=== PATIENT | male | born 1955 | race American Indian/Alaskan Native ===

== ENCOUNTER 2018-06-05 19:47 | Inpatient (IN) | payer MEDICARE, OTHER ==
[2018-06-05] MEDS ORDERED: ASPIRIN PO ONE (20:11)
[2018-06-05 20:29] LABS: Basophils # (Auto) 0.1 K/mm3 (0.0-0.1); Basophils % (Auto) 0.9 % (0.0-1.8); Eosinophils # (Auto) 0.1 K/mm3 (0.0-0.4); Eosinophils % (Auto) 1.1 % (0.0-4.3); Hemoglobin 15.6 gm/dl (11.8-15.2); Lymphocytes # (Auto) 1.8 K/mm3 (1.2-5.4); Lymphocytes % (Auto) 25.7 % (13.4-35.0); Mean Corpuscular HGB Conc 33 % (32-34); Mean Corpuscular Volume 94 fl (84-94); Monocytes # (Auto) 0.7 K/mm3 (0.0-0.8); Monocytes % (Auto) 9.8 % (0.0-7.3); Platelet Count 125 K/mm3 (140-440); Red Blood Count 5.03 M/mm3 (3.65-5.03); Red Cell Distribution Width 14.6 % (13.2-15.2)
[2018-06-05 21:01] LABS: Calcium 8.9 mg/dL (8.4-10.2)
[2018-06-05] MEDS ORDERED: NACL 0.9% 1000 ML 1,000 ML IV ONE ×2 (21:11→22:18)
[2018-06-05] MEDS ORDERED: NACL 0.9% 1000 ML 1,000 ML ONE (21:12)
--- NOTE | 2018-06-05 21:14 | Emergency Department Report ---
ED Chest Pain HPI - General Chief Complaint: Chest Pain Stated Complaint: CHEST PAIN Time Seen by Provider: 06/05/18 21:10 Source: patient Mode of arrival: Ambulatory Limitations: No Limitations - History of Present Illness Initial Comments: Patient is 63-year-old male that presents emergency room with complaints of chest pain and shortness of breath on and off for one week. Patient states that his chest pain shortness of breath or worsening. Patient states that he's had multiple PEs and is post liquids but has not been taking it for one year. Pat ient states that his chest pain and shortness of breath are better with rest and worse with exertion and laying flat. Patient states that his shortness of breath better with upright position. Patient states he is not on home O2. Patient states taking the rest of his medications except for his blood that her. She denies having a history of CHF. Denies abdominal pain. She states his pain is a 8 out of 10 And is substernal and nonradiating. MD Complaint: chest pain -: Sudden Onset: during rest Pain Location: substernal, left chest Pain Radiation: none Severity: severe Severity scale (0 -10): 8 Quality: sharp Consistency: constant Improves With: rest Worsens With: exertion, supine re: dyspnea. denies: nausea, vomting, diaphoresis, sense of impending doom Other Symptoms: denies: cough, fever, syncope, rash, acid taste in mouth, leg swelling, palpitations, burping Treatments Prior to Arrival: none Aspirin use within the Past 7 Days: (0) No - Related Data On Oral Contraceptives: No Home Medications Medication Instructions Recorded Confirmed Last Taken Allopurinol [Zyloprim] 300 mg PO BID 06/05/18 06/05/18 06/05/18 Aspirin [Adult Low Dose Aspirin EC] 81 mg PO DAILY 06/05/18 06/05/18 06/05/18 Brimonidine 0.15% [Alphagan P 1 drops OP Q8H 06/05/18 06/05/18 Unknown 0.15%] Dorzolamide HCl/Timolol Maleat 10 ml OP BID 06/05/18 06/05/18 06/05/18 [Dorzolamide-Timolol Eye Drops] Furosemide [Lasix TAB] 40 mg PO DAILY 06/05/18 06/05/18 06/05/18 Gabapentin [Neurontin] 300 mg PO BID 06/05/18 06/05/18 06/05/18 Ibuprofen [Ibu] 800 mg PO Q8H PRN 06/05/18 06/05/18 Unknown Latanoprost/Pf [Latanoprost 0.005% 7.5 ml OP QHS 06/05/18 06/05/18 06/04/18 Eye Drop] Lisinopril 40 mg PO DAILY 06/05/18 06/05/18 06/05/18 Rosuvastatin (Nf) [Crestor] 20 mg PO DAILY 06/05/18 06/05/18 06/05/18 Silver Sulfadiazine [Silvadene] 50 gm TP DAILY 06/05/18 06/05/18 06/05/18 amLODIPine [Norvasc] 10 mg PO DAILY 06/05/18 06/05/18 06/05/18 methOCARBAMOL [Robaxin TAB] 500 mg PO BID 06/05/18 06/05/18 06/05/18 Allergies Allergy/AdvReac Type Severity Reaction Status Date / Time No Known Allergies Allergy Verified 08/23/14 08:28 Heart Score - HEART Score History: Moderately suspicious EKG: Non-specific Age: 45-65 Risk factors: 1-2 risk factors Troponin: < normal limit HEART Score: 4 ED Review of Systems ROS: Stated complaint: CHEST PAIN Other details as noted in HPI Constitutional: denies: chills, fever Eyes: denies: eye pain, eye discharge, vision change ENT: denies: ear pain, throat pain Respiratory: shortness of breath, SOB with exertion. denies: cough, wheezing Cardiovascular: chest pain. denies: palpitations Endocrine: no symptoms reported Gastrointestinal: denies: abdominal pain, nausea, diarrhea Genitourinary: denies: urgency, dysuria Musculoskeletal: denies: back pain, joint swelling, arthralgia Skin: denies: rash, lesions Neurological: denies: headache, weakness, paresthesias Psychiatric: denies: anxiety, depression Hematological/Lymphatic: denies: easy bleeding, easy bruising ED Past Medical Hx - Past Medical History Previous Medical History?: Yes Hx Hypertension: Yes Hx Deep Vein Thrombosis: Yes (Lungs) Additional medical history: GOUT, - Surgical History Past Surgical History?: Yes Hx Appendectomy: Yes Additional Surgical History: [place] filter - Family History Family history: no significant - Social History Smoking Status: Never Smoker Substance Use Type: None - Medications Home Medications: Home Medications Medication Instructions Recorded Confirmed Last Taken Type Allopurinol [Zyloprim] 300 mg PO BID 06/05/18 06/05/18 06/05/18 History Aspirin [Adult Low Dose Aspirin EC] 81 mg PO DAILY 06/05/18 06/05/18 06/05/18 History Brimonidine 0.15% [Alphagan P 1 drops OP Q8H 06/05/18 06/05/18 Unknown History 0.15%] Dorzolamide HCl/Timolol Maleat 10 ml OP BID 06/05/18 06/05/18 06/05/18 History [Dorzolamide-Timolol Eye Drops] Furosemide [Lasix TAB] 40 mg PO DAILY 06/05/18 06/05/18 06/05/18 History Gabapentin [Neurontin] 300 mg PO BID 06/05/18 06/05/18 06/05/18 History Ibuprofen [Ibu] 800 mg PO Q8H PRN 06/05/18 06/05/18 Unknown History Latanoprost/Pf [Latanoprost 0.005% 7.5 ml OP QHS 06/05/18 06/05/18 06/04/18 History Eye Drop] Lisinopril 40 mg PO DAILY 06/05/18 06/05/18 06/05/18 History Rosuvastatin (Nf) [Crestor] 20 mg PO DAILY 06/05/18 06/05/18 06/05/18 History Silver Sulfadiazine [Silvadene] 50 gm TP DAILY 06/05/18 06/05/18 06/05/18 History amLODIPine [Norvasc] 10 mg PO DAILY 06/05/18 06/05/18 06/05/18 History methOCARBAMOL [Robaxin TAB] 500 mg PO BID 06/05/18 06/05/18 06/05/18 History ED Physical Exam - General Limitations: No Limitations General appearance: alert, in no apparent distress - Head Head exam: Present: atraumatic, normocephalic - Eye Eye exam: Present: normal appearance - ENT ENT exam: Present: mucous membranes moist - Neck Neck exam: Present: normal inspection - Respiratory Respiratory exam: Present: normal lung sounds bilaterally. Absent: respiratory distress - Cardiovascular Cardiovascular Exam: Present: regular rate, normal rhythm. Absent: systolic murmur, diastolic murmur, rubs, gallop - GI/Abdominal GI/Abdominal exam: Present: soft, normal bowel sounds - Rectal Rectal exam: Present: deferred - Extremities Exam Extremities exam: Present: normal inspection - Back Exam Back exam: Present: normal inspection - Neurological Exam Neurological exam: Present: alert, oriented X3 - Psychiatric Psychiatric exam: Present: normal affect, normal mood - Skin Skin exam: Present: warm, dry, intact, normal color. Absent: rash ED Course Vital Signs 06/05/18 06/05/18 06/05/18 20:03 20:11 21:00 Temperature 98.7 F Pulse Rate 100 H 94 H Respiratory 20 33 H Rate Blood Pressure 91/62 O2 Sat by Pulse 89 95 95 Oximetry 06/05/18 06/05/18 06/05/18 21:15 21:30 21:46 Temperature Pulse Rate 90 98 H 89 Respiratory 25 H 16 32 H Rate Blood Pressure 78/52 78/52 80/59 O2 Sat by Pulse 96 Oximetry 06/05/18 06/05/18 06/05/18 22:16 22:30 22:45 Temperature Pulse Rate 88 82 82 Respiratory 18 22 21 Rate Blood Pressure 80/59 105/72 101/71 O2 Sat by Pulse 93 96 97 Oximetry 06/05/18 06/05/18 06/05/18 23:00 23:15 23:30 Temperature Pulse Rate 80 85 82 Respiratory 23 21 20 Rate Blood Pressure 105/67 88/55 108/76 O2 Sat by Pulse 96 94 95 Oximetry 06/05/18 06/05/18 06/06/18 23:45 23:56 00:00 Temperature Pulse Rate 83 91 H 84 Respiratory 22 24 23 Rate Blood Pressure 114/78 114/78 110/72 O2 Sat by Pulse 94 94 95 Oximetry 06/06/18 06/06/18 06/06/18 00:30 00:33 01:00 Temperature Pulse Rate 86 83 Respiratory 15 27 H Rate Blood Pressure 116/78 111/78 O2 Sat by Pulse 93 96 95 Oximetry 06/06/18 06/06/18 06/06/18 01:30 02:00 02:30 Temperature Pulse Rate 81 82 78 Respiratory 22 21 20 Rate Blood Pressure 115/94 112/77 112/77 O2 Sat by Pulse 95 95 93 Oximetry - Reevaluation(s) Reevaluation #1: Discussed plan of care with patient. Discussed CTA and IV contrast patient. Patient agrees to have IV contrast. It is clinically necessary for patient to have a CTA. 06/05/18 21:40 \ Radiologist called with CTA results and patient has multiple PEs along with saddle embolus With right heart strain 06/05/18 22:40 Patient to be admitted to the hospitalist service. Patient agrees with plan of care. Patient will pressure improved. Patient states shortness of breath chest pain improved. Patient started on a heparin drip. Patient to be admitted into the ICU 06/05/18 23:00 - Consultations Consultation #1: Vascular paged 06/05/18 22:[address] Banda Patient to be admitted to ICU and to the hospitalist service. The patient are placed on heparin drip. Consultation #2: 06/05/18 23:00 Hospitalist to admit patient. Hospitalist consult. THERESA score - Theresa Score Age > 65: (0) No Aspirin use within the Past 7 Days: (0) No 3 or more CAD Risk Factors: (0) No 2 or more Angina events in past 24 hrs: (0) No Known CAD with more than 50% Stenosis: (0) No Elevated Cardiac Markers: (0) No ST Deviation Greater than 0.5mm: (0) No THERESA Score: 0 ED Medical Decision Making - Lab Data Result diagrams: 06/05/18 22:46 06/05/18 20:15 - EKG Data -: EKG Interpreted by Nh EKG shows normal: sinus rhythm, axis, intervals, QRS complexes, ST-T waves Rate: normal - Radiology Data Radiology results: report reviewed Multiple PEs and saddle embolus on CTA. Patient also has right-sided strain - Medical Decision Making She is 63-year-old male that presents emergency room with complaints of chest pain shortness of breath. Patient found to have a subtle embolism and multiple PEs. Patient has a long history of previous one year. Patient was also found to be hypotensive and given fluids. Patient's blood pressure improved with saline. Patient placed on heparin drip with a loading dose bolus. - Differential Diagnosis chest pain. sob. pe. acs Critical Care Time: Yes Critical care attestation.: If time is entered above; I have spent that time in minutes in the direct care of this critically ill patient, excluding procedure time. Critical Care Time: 80 minutes ED Disposition Clinical Impression: Multiple pulmonary emboli Dyspnea Qualifiers: Dyspnea type: shortness of breath Qualified Code(s): R06.02 - Shortness of breath; R06.00 - Dyspnea, unspecified; R06.01 - Orthopnea Chest pain Qualifiers: Chest pain type: unspecified Qualified Code(s): R07.9 - Chest pain, unspecified Hypotension Qualifiers: Hypotension type: unspecified hypotension type Qualified Code(s): I95.9 - Hypotension, unspecified Pulmonary embolism Qualifiers: Pulmonary embolism type: saddle Chronicity: acute Acute cor pulmonale presence: with acute cor pulmonale Qualified Code(s): I26.02 - Saddle embolus of pulmonary artery with acute cor pulmonale Disposition: 09 OP ADMIT IP TO THIS HOSP Is pt being admited?: Yes Does the pt Need Aspirin: No Condition: Critical Time of Disposition: 23:09
--- NOTE | 2018-06-05 21:54 | XRay Report ---
FINAL REPORT EXAM: XR CHEST ROUTINE 2V HISTORY: Shortness of breath TECHNIQUE: Two view chest PA and lateral PRIORS: None. FINDINGS: Cardiac and mediastinal contours are unremarkable. No focal pulmonary infiltrate is identified. No pleural fluid collection seen. Pulmonary vasculature is unremarkable. IMPRESSION: Negative two-view chest
--- NOTE | 2018-06-05 22:37 | Cat Scan Report ---
FINAL REPORT EXAM: CT ANGIO CHEST HISTORY: SOB, CP, HYPOTENSION, HX PE. USED 50 ML OMNI 350. TECHNIQUE: CT chest CT angiogram with intravenous contrast and multiplanar reconstructions. 3D max imum intensity projection reconstructions were obtained PRIORS: None. FINDINGS: Findings are positive for acute bilateral pulmonary emboli. There is saddle embolus within the pulmon helio trunk and left and right main pulmonary arteries with large emboli present within upper lower lob e and right middle lobe lobar segmental and subsegmental branches some of which are occluding. There is some reflux of contrast into inferior vena cava which may reflect right heart strain. There is focal increased density seen within the medial aspect of the left upper lobe which has a con solidated appearance measuring approximately 3.7 centimeters could reflect atelectasis versus mass or infiltrate and continued close interval follow-up recommended. No pleural fluid collection seen No acute abnormality identified in the visualized upper abdomen IMPRESSION: Findings are positive for acute bilateral pulmonary emboli. There is a saddle embolus and overall mariia t burden is large Findings suggestive of right heart strain Focal consolidated opacity within the left upper lobe. Underlying mass is not excluded and continued followup suggested.
[2018-06-05] MEDS ORDERED: HEPARIN 10,000 UNITS/10 ML IV ONE (22:41)
[2018-06-05 22:59] LABS: Hematocrit 42.6 % (35.5-45.6); Hemoglobin 13.9 gm/dl (11.8-15.2)
[2018-06-05 23:10] LABS: INR 1.25 (0.87-1.13)
[2018-06-05 23:11] LABS: Partial Thromboplastin Time 24.5 Sec. (24.2-36.6)
[2018-06-06] MEDS ORDERED: MORPHINE IV PRN ×2 (00:28→13:03)
[2018-06-06] MEDS ORDERED: ZOFRAN IV PRN ×2 (00:28→11:40)
[2018-06-06] MEDS ORDERED: TYLENOL PO PRN (00:28)
[2018-06-06] MEDS: HEPARIN/ 0.45% NACL-25,000 UNIT/500 ML 25,000 UNIT/500 ML BAG IV SCH ×3 (00:30→12:30)
[2018-06-06] MEDS ORDERED: RESTORIL PO PRN (00:31)
[2018-06-06] MEDS ORDERED: PROVENTIL IH PRN (00:32)
[2018-06-06 06:55] LABS: INR 1.22 (0.87-1.13)
[2018-06-06 07:02] LABS: Creatine Kinase MB 1.8 ng/mL (0.0-4.0)
[2018-06-06 08:26] LABS: Calcium 8.2 mg/dL (8.4-10.2)
--- NOTE | 2018-06-06 09:49 | Consultation ---
History of Present Illness - Reason for Consult Consult date: 06/06/18 saddle PE with right heart strain Requesting physician: CANDI LOBATO III - History of Present Illness Patient came to ED with one-week shortness of breath has been worsening and now with chest pain. He had a CTA that showed septal pulmonary embolus with bilateral main artery emboli. He had same issue back in 2015 when he underwent placement of thrombolytic catheter was for major PE and then placement of IVC filter. The filter was subsequently removed and patient was supposed to continue anticoagulation. He was followed with meal packer and in our office. He decided to stop until granulation by himself one year ago. Past History Past Medical History: DVT, hypertension, pulmonary embolism Medications and Allergies Allergies Allergy/AdvReac Type Severity Reaction Status Date / Time No Known Allergies Allergy Verified 08/23/14 08:28 Home Medications Medication Instructions Recorded Confirmed Last Taken Type Allopurinol [Zyloprim] 300 mg PO BID 06/05/18 06/05/18 06/05/18 History Aspirin [Adult Low Dose Aspirin EC] 81 mg PO DAILY 06/05/18 06/05/18 06/05/18 History Brimonidine 0.15% [Alphagan P 1 drops OP Q8H 06/05/18 06/05/18 Unknown History 0.15%] Dorzolamide HCl/Timolol Maleat 10 ml OP BID 06/05/18 06/05/18 06/05/18 History [Dorzolamide-Timolol Eye Drops] Furosemide [Lasix TAB] 40 mg PO DAILY 06/05/18 06/05/18 06/05/18 History Gabapentin [Neurontin] 300 mg PO BID 06/05/18 06/05/18 06/05/18 History Ibuprofen [Ibu] 800 mg PO Q8H PRN 06/05/18 06/05/18 Unknown History Latanoprost/Pf [Latanoprost 0.005% 7.5 ml OP QHS 06/05/18 06/05/18 06/04/18 History Eye Drop] Lisinopril 40 mg PO DAILY 06/05/18 06/05/18 06/05/18 History Rosuvastatin (Nf) [Crestor] 20 mg PO DAILY 06/05/18 06/05/18 06/05/18 History Silver Sulfadiazine [Silvadene] 50 gm TP DAILY 06/05/18 06/05/18 06/05/18 History amLODIPine [Norvasc] 10 mg PO DAILY 06/05/18 06/05/18 06/05/18 History methOCARBAMOL [Robaxin TAB] 500 mg PO BID 06/05/18 06/05/18 06/05/18 History Active Meds: Active Medications Acetaminophen (Tylenol) 650 mg PO Q4H PRN PRN Reason: Fever >101 Albuterol (Proventil) 2.5 mg IH Q6HRT PRN PRN Reason: Shortness Of Breath Allopurinol (Zyloprim) 300 mg PO BID MAX Amlodipine Besylate (Norvasc) 10 mg PO DAILY MAX Atorvastatin Calcium (Lipitor) 40 mg PO QHS MAX Gabapentin (Neurontin) 300 mg PO BID MAX Guaifenesin (Robitussin) 200 mg PO Q4H PRN PRN Reason: Cough Heparin Sodium/Sodium Chloride (Heparin/ 0.45% Nacl-25,000 Unit/500 Ml) 25,000 unit in 500 mls @ 30 mls/hr IV TITR MAX; Protocol Last Titration: 06/06/18 07:27 Dose: 0 units/hr, 0 mls/hr Documented by: Alteplase, Recombinant 10 mg/ (Sodium Chloride) 250 mls @ 10 mls/hr EKOSDLUMEN DIRECT MAX Alteplase, Recombinant 10 mg/ (Sodium Chloride) 250 mls @ 10 mls/hr IV DIRECT MAX Sodium Chloride (Nacl 0.9% 1000 Ml) 1,000 mls @ 30 mls/hr IV DIRECT MAX Sodium Chloride (Nacl 0.9% 1000 Ml) 1,000 mls @ 30 mls/hr SHEATH DIRECT MAX Sodium Chloride (Nacl 0.9% 1000 Ml) 1,000 mls @ 35 mls/hr EKOSCLUMEN DIRECT MAX Latanoprost (Latanoprost 0.005%) 1 drops OU QHS [facility] Lisinopril (Zestril) 40 mg PO DAILY [facility] Methocarbamol (Robaxin) 500 mg PO BID [facility] Miscellaneous Medication (Dorzolamide Hcl/Timolol Maleat [Dorzolamide-Timolol Eye Drops]) 10 ml OP BID [facility] Morphine Sulfate (Morphine) 2 mg IV Q3H PRN PRN Reason: Pain, Moderate (4-6) Ondansetron HCl (Zofran) 4 mg IV Q8H PRN PRN Reason: Nausea And Vomiting Silver Sulfadiazine (Thermazene 50 Gram) 1 applic TP DAILY [facility] Temazepam (Restoril) 15 mg PO QHS PRN PRN Reason: Insomnia Warfarin Sodium (Coumadin) 10 mg PO DAILY@1700 MAX Review of Systems All systems: negative (mentioned in HPI) Exam - Constitutional Vitals: Temp Pulse Resp BP Pulse Ox 98.7 F 85 13 137/99 96 06/05/18 20:03 06/06/18 09:00 06/06/18 09:00 06/06/18 09:00 06/06/18 09:00 General appearance: Present: no acute distress - Cardiovascular Heart Sounds: Present: S1 & S2 - Extremities Extremities: no ischemia Results - Labs CBC & Chem 7: 06/05/18 22:46 06/06/18 06:20 Labs: Abnormal lab results 06/05/18 06/05/18 06/05/18 Range/Units 20:15 20:15 21:14 Hgb 15.6 H (11.8-15.2) gm/dl Hct 47.0 H (35.5-45.6) % Plt Count 125 L (140-440) K/mm3 Dent % (Auto) 9.8 H (0.0-7.3) % PT (12.2-14.9) Sec. INR (0.87-1.13) D-Dimer 4730.92 H (0-234) ng/mlDDU Heparin Anti-Xa Level (0.3-0.7) U.I./ml Chloride (98-107) mmol/L Carbon Dioxide 18 L (22-30) mmol/L Creatinine 1.7 H (0.8-1.5) mg/dL Glucose 149 H (75-100) mg/dL Calcium (8.4-10.2) mg/dL NT-Pro-B Natriuret Pep (0-900) pg/mL 06/05/18 06/05/18 06/05/18 Range/Units 21:14 22:46 22:46 Hgb (11.8-15.2) gm/dl Hct (35.5-45.6) % Plt Count 102 L (140-440) K/mm3 Dent % (Auto) (0.0-7.3) % PT 16.1 H (12.2-14.9) Sec. INR 1.25 H (0.87-1.13) D-Dimer (0-234) ng/mlDDU Heparin Anti-Xa Level (0.3-0.7) U.I./ml Chloride (98-107) mmol/L Carbon Dioxide (22-30) mmol/L Creatinine (0.8-1.5) mg/dL Glucose (75-100) mg/dL Calcium (8.4-10.2) mg/dL NT-Pro-B Natriuret Pep 4306 H (0-900) pg/mL 06/06/18 06/06/18 Range/Units 06:20 06:20 Hgb (11.8-15.2) gm/dl Hct (35.5-45.6) % Plt Count (140-440) K/mm3 Dent % (Auto) (0.0-7.3) % PT 15.8 H (12.2-14.9) Sec. INR 1.22 H (0.87-1.13) D-Dimer (0-234) ng/mlDDU Heparin Anti-Xa Level 1.10 H (0.3-0.7) U.I./ml Chloride 107.4 H (98-107) mmol/L Carbon Dioxide 20 L (22-30) mmol/L Creatinine (0.8-1.5) mg/dL Glucose 113 H (75-100) mg/dL Calcium 8.2 L (8.4-10.2) mg/dL NT-Pro-B Natriuret Pep (0-900) pg/mL - Imaging and Cardiology CT scan - chest: report reviewed (saddle and bilateral pulmonary emboli with right heart strain) Assessment and Plan Major pulmonary embolism with right heart strain Patient has no recent surgery, no recent stroke, intracranial bleed or any bleeding anywhere which places him internal low probability of bleeding category. This makes thrombolysis more benefit than risk Plan pharmaco mechanical thrombolysis, placement of EKOS catheters in the pulmonary arteries bilaterally
[2018-06-06] MEDS ORDERED: DORZOLAMIDE HCL OP SCH (10:00)
[2018-06-06] MEDS ORDERED: CATHFLO 10 MG in NACL 0.9% 250ML 250 ML IV SCH (10:00)
[2018-06-06] MEDS ORDERED: NACL 0.9% 1000 ML 1,000 ML SHEATH SCH ×2 (10:00)
[2018-06-06] MEDS ORDERED: NACL 0.9% 1000 ML 1,000 ML EKOSCLUMEN SCH ×2 (10:00)
[2018-06-06] MEDS ORDERED: NACL 0.9% 1000 ML 1,000 ML IV SCH (10:00)
[2018-06-06] MEDS ORDERED: TIMOLOL MALEAT OP SCH (10:00)
[2018-06-06] MEDS ORDERED: HEPARIN/NS 5000 UNIT/500ML(CATH LAB) 500 ML IR ONE ×2 (10:18→10:32)
[2018-06-06] MEDS ORDERED: HEPARIN/ 0.45% NACL-25,000 UNIT/500 ML 50,000 UNIT/1,000 ML BAG ONE (10:32)
[2018-06-06] MEDS ORDERED: NACL 0.9% 500 ML 500 ML ONE (10:33)
[2018-06-06] MEDS ORDERED: NACL 0.9% 500 ML 1,000 ML ONE ×2 (10:33→21:50)
[2018-06-06 10:41] LABS: BUN/Creatinine Ratio 12; Blood Urea Nitrogen 16 mg/dL (9-20); Calcium 8.3 mg/dL (8.4-10.2); Hemolysis Index 740
[2018-06-06] MEDS ORDERED: WATER FOR INJ Sterile (PF) 10 ML ONE (10:41)
[2018-06-06 10:43] LABS: Hematocrit 49.8 % (35.5-45.6); Hemoglobin 16.3 gm/dl (11.8-15.2); Mean Corpuscular HGB Conc 33 % (32-34); Mean Corpuscular Volume 95 fl (84-94); Red Blood Count 5.27 M/mm3 (3.65-5.03); Red Cell Distribution Width 14.6 % (13.2-15.2)
[2018-06-06 10:46] LABS: INR 1.14 (0.87-1.13)
[2018-06-06 10:47] LABS: Partial Thromboplastin Time 37.7 Sec. (24.2-36.6)
[2018-06-06] MEDS: XYLOCAINE 2% INFILTRATI ONE (10:47)
[2018-06-06 10:48] LABS: Platelet Count 85 K/mm3 (140-440)
[2018-06-06] MEDS ORDERED: ANCEF/STERILE WATER 2 GM/20 ML 2 GM/20 ML SYRINGE IV ONE (10:50)
[2018-06-06] MEDS: CATHFLO ONE ×2 (11:11→11:22)
[2018-06-06] MEDS: HEPARIN 10,000 UNITS/10 ML ONE ×2 (11:12→11:20)
[2018-06-06] MEDS: CATHFLO 10 MG in NACL 0.9% 250ML 250 ML EKOSDLUMEN SCH ×2 (11:18→12:30)
--- NOTE | 2018-06-06 11:19 | History and Physical Report ---
CHIEF COMPLAINT: Chest pain. HISTORY OF PRESENT ILLNESS: The patient is a 63-year-old male who came to the Emergency Room complaining of chest pain going on for about 1 week associated with shortness of breath. The patient said that the shortness of breath is worse with lying flat on the bed and better with sitting upright. The patient admitted to falling down recently and hitting the back of his chest on the ground. There is no history of fever or chills. No history of nausea or vomiting. The patient stated that he has had multiple pulmonary embolism in the past and stopped taking his blood thinner Eliquis when he ran out. There is history of cough but no history of fever or chills and no history of nausea or vomiting. PAST MEDICAL HISTORY: Pertinent for pulmonary embolism, hypertension, gout, deep vein thrombosis. PAST SURGICAL HISTORY: Pertinent for appendectomy, green filter placement. FAMILY HISTORY: Noncontributory. SOCIAL HISTORY: The patient does not smoke, does not drink alcohol, and does not use illicit drugs. MEDICATIONS: The patient is on allopurinol 300 mg twice daily, aspirin 81 mg daily, brimonidine 0.15% or Alphagan 1 drop OP q.8 hours. Also, the patient is on dorzolamide-timolol eye drops 10 mL OP b.i.d. The patient is on Lasix 40 mg by mouth daily and gabapentin 300 mg by mouth twice daily. Also, the patient is on ibuprofen 800 mg by mouth every 8 hours as needed for pain and on latanoprost 0.005% eye drop 7.5 mL OP at bedtime. The patient is on lisinopril 40 mg daily, Crestor 20 mg daily, and Silvadene 16 gram topically daily as well as amlodipine 10 mg by mouth daily and Robaxin 500 mg by mouth twice daily. ALLERGIES: There are no known drug allergies. REVIEW OF SYSTEMS: CONSTITUTIONAL: There is no fever, no chills, no diaphoresis. HEENT: There is no headache or sore throat. CARDIOVASCULAR SYSTEM: There is chest pain and there is orthopnea. RESPIRATORY SYSTEM: There is shortness of breath and cough. GASTROINTESTINAL SYSTEM: There is no nausea, no vomiting, no abdominal pain, diarrhea or constipation. NEUROLOGICAL SYSTEM: There is no numbness, no dizziness, no altered mental status. MUSCULOSKELETAL SYSTEM: There is no joint pain or swelling. DERMATOLOGICAL SYSTEM: There is no skin rash or itching. GENITOURINARY SYSTEM: There is no dysuria, hematuria, or flank pain. Rest of system review is normal. PHYSICAL EXAMINATION: GENERAL: At the time of exam, the patient was found to be alert, oriented x 3 and not in acute distress. VITAL SIGNS: Show temperature of 98.7 degrees Fahrenheit, pulse of 100, respirations 20, blood pressure 91/62, O2 sat of 89% on room air. HEENT: Shows pupils to be equal, round, and reactive to light and accommodating. Extraocular motions are intact. NECK: Supple with no JVD or carotid bruit. CARDIOVASCULAR SYSTEM: Shows normal first and second heart sounds with no gallops or murmurs. RESPIRATORY SYSTEM: Shows good air entry on both sides of the lung with no abnormal breath sounds. GASTROINTESTINAL SYSTEM: Shows abdomen to be full, soft, nontender with no organomegaly or rigidity. NEUROLOGICAL: Shows no focal deficits. MUSCULOSKELETAL SYSTEM: Shows no joint swelling or tenderness. DERMATOLOGICAL SYSTEM: Shows no skin rash. GENITOURINARY SYSTEM: Showing no costovertebral angle tenderness. PERTINENT LABORATORY AND IMAGING STUDIES: The patient had chest x-ray done that shows negative 2-view chest x-ray report. Also, the patient had a CT angiogram of the chest done that shows acute bilateral pulmonary embolism with saddle embolus, and the radiologist said that overall clot burden is light. Also the findings are suggestive of right heart strain. There is finding of focal consolidated opacity within the left upper lobe and the radiologist said that underlying mass is not excluded and continued followup suggested. The patient's lab result shows CBC with normal white count, normal hemoglobin, and normal hematocrit with CBC differential showing elevated monocyte count of 9.8. Also, the patient's CBC showed low platelet count of 102,000. Coagulation studies show elevated D-dimer of 4730 that prompted the order for CT angiogram. The patient's chemistry showed low CO2 of 18 with elevated creatinine level of 1.7 and elevated brain natriuretic peptide level of 4306. DIAGNOSES: 1. Multiple pulmonary embolism with saddle embolus. 2. Chest pain. 3. Acute kidney injury. 4. Dyspnea. PLAN OF ACTION: 1. The patient will be admitted to Critical Care Unit as requested by the vascular surgeon, Dr. Banda. 2. The patient will continue IV heparin started in the Emergency Room. 3. The patient will continue vascular surgical consult with Dr. Banda for management of multiple pulmonary embolism with saddle embolus. 4. The patient will have critical care consult with Dr. Laura for ICU admission. 5. The patient will have cardiac enzymes involving troponin, total CK and CK-MB. Check serially every 6 hours x 2 more levels. 6. The patient will start Coumadin treatment with pharmacy to dose and manage. 7. The patient will be on p.r.n. medications like Tylenol 650 mg by mouth every 4 hours for fever, headache and continue heparin protocol started in the Emergency Room. 8. The patient will be on IV morphine 2 mg every 3 hours as needed for pain and IV Zofran 4 mg every 8 hours for nausea and vomiting. 9. The patient will have basic metabolic panel checked this morning and will have Nephrology consult with Dr. Alan for acute kidney injury. JOB# [id number] OCN/NTS
[2018-06-06] MEDS ORDERED: CATHFLO ONE (11:27)
--- NOTE | 2018-06-06 11:51 | Progress Note ---
Assessment and Plan Assessment and plan: Septal pulmonary embolus. CTA that showed septal pulmonary embolus with bilateral main artery emboli. He had same issue back in 2016 when he underwent placement of thrombolytic catheter was for major PE and then placement of IVC filter. The filter was subsequently removed and patient was supposed to continue anticoagulation. Patient has been noncompliant for approximately one year. Vascular surgery following. Hypertension. Continue current hypertensive medications. Acute kidney injury. Etiology likely secondary to vasomotor nephropathy/dehydration. Improved. Continue to follow BMP. History Interval history: No new issues overnight. Hospitalist Physical - Constitutional Vitals: Temp Pulse Resp BP Pulse Ox 98.7 F 91 H 15 139/104 96 06/05/18 20:03 06/06/18 10:00 06/06/18 10:00 06/06/18 10:00 06/06/18 10:00 General appearance: Present: no acute distress - EENT Eyes: Present: PERRL, EOM intact ENT: hearing intact, clear oral mucosa, dentition normal - Neck Neck: Present: supple, normal ROM - Respiratory Respiratory effort: normal Respiratory: bilateral: CTA - Cardiovascular Rhythm: regular Heart Sounds: Present: S1 & S2. Absent: gallop, rub - Extremities Extremities: no ischemia, No edema, Full ROM - Abdominal General gastrointestinal: soft, non-tender, non-distended, normal bowel sounds - Integumentary Integumentary: Present: clear, warm, dry - Neurologic Neurologic: CNII-XII intact, moves all extremities Results - Labs CBC & Chem 7: 06/06/18 09:59 06/06/18 09:59 Labs: Laboratory Last Values WBC 5.5 K/mm3 (4.5-11.0) 06/06/18 09:59 RBC 5.27 M/mm3 (3.65-5.03) H 06/06/18 09:59 Hgb 16.3 gm/dl (11.8-15.2) H 06/06/18 09:59 Hct 49.8 % (35.5-45.6) H D 06/06/18 09:59 MCV 95 fl (84-94) H 06/06/18 09:59 MCH 31 pg (28-32) 06/06/18 09:59 MCHC 33 % (32-34) 06/06/18 09:59 RDW 14.6 % (13.2-15.2) 06/06/18 09:59 Plt Count 85 K/mm3 (140-440) L 06/06/18 09:59 Lymph % (Auto) Certified Medical Transcriptionist 06/06/18 09:59 [place] % (Auto) Certified Medical Transcriptionist 06/06/18 09:59 Eos % (Auto) Certified Medical Transcriptionist 06/06/18 09:59 Baso % (Auto) Certified Medical Transcriptionist 06/06/18 09:59 Lymph # Certified Medical Transcriptionist 06/06/18 09:59 [place] # Certified Medical Transcriptionist 06/06/18 09:59 Eos # Certified Medical Transcriptionist 06/06/18 09:59 Baso # Certified Medical Transcriptionist 06/06/18 09:59 Seg Neutrophils % Certified Medical Transcriptionist 06/06/18 09:59 Seg Neutrophils # Certified Medical Transcriptionist 06/06/18 09:59 PT 15.0 Sec. (12.2-14.9) H 06/06/18 09:59 INR 1.14 (0.87-1.13) H 06/06/18 09:59 APTT 37.7 Sec. (24.2-36.6) H 06/06/18 09:59 Fibrinogen 362 mg/dl (211-480) 06/06/18 09:59 D-Dimer 4730.92 ng/mlDDU (0-234) H 06/05/18 21:14 Heparin Anti-Xa Level 1.10 U.I./ml (0.3-0.7) H 06/06/18 06:20 Sodium Not Reportable 06/06/18 09:59 Potassium Not Reportable 06/06/18 09:59 Chloride 102.3 mmol/L (98-107) 06/06/18 09:59 Carbon Dioxide Not Reportable 06/06/18 09:59 Anion Gap TNR 06/06/18 09:59 BUN 16 mg/dL (9-20) 06/06/18 09:59 Creatinine 1.3 mg/dL (0.8-1.5) 06/06/18 09:59 Estimated GFR > 60 ml/min 06/06/18 09:59 BUN/Creatinine Ratio 12 % 06/06/18 09:59 Glucose 138 mg/dL (75-100) H 06/06/18 09:59 Calcium 8.3 mg/dL (8.4-10.2) L 06/06/18 09:59 Total Creatine Kinase 57 units/L (55-170) 06/06/18 06:20 CK-MB (CK-2) 2.0 ng/mL (0.0-4.0) 06/06/18 11:00 CK-MB (CK-2) Rel Index 3.1 (0-4) 06/06/18 06:20 Troponin T < 0.010 ng/mL (0.00-0.029) 06/06/18 11:00 NT-Pro-B Natriuret Pep 4306 pg/mL (0-900) H 06/05/18 21:14 Blood Type B POSITIVE 06/06/18 10:52 Antibody Screen Negative 06/06/18 10:52
--- NOTE | 2018-06-06 11:58 | Operative Report ---
Operative Report Operative Report: Operative note: Date: 06/06/2018 Preoperative diagnosis: Massive pulmonary embolism with saddle embolus and right heart strain Postoperative diagnosis: Same. Operation: Pharmacal mechanical thrombolysis with bilateral pulmonary artery EKOS placement. Ultrasound-guided right common femoral vein access 2. Pulmonary angiogram. Selection of right lower lobe arteries, selection of left main and lobar pulmonary arteries. Surgeon: Essence Banda. Asst.: None Anesthesia: Local EBL: None Findings: Except for bilateral EKOS catheter placement Indications: 62-year-old gentleman with shortness of breath found to have massive PE, saddle embolus was right heart strain on CT scan. Patient was found to have low risk of bleeding. He was discussed risks, benefits and alternatives of procedure and he chose to proceed and signed consent. Operative details: Patient was brought to the [facility]reader and placed in supine position. He were prepped and draped in sterile fashion. Timeout was performed and all team members in agreement. Injection local anesthetic right common femoral vein was accessed under continuous ultrasound guidance using micropuncture technique. It was changed over a Barrett wire 26 [place] access sheath. A second access was gained in the same fashion and 6 [place] access sheath was also placed using JR4. Each wire was manipulated into pulmonary artery with first positioned in the right lower pulmonary arteries and second in the left pulmonary arteries. 12 cm catheters were placed x2. There was secured in place and sterile dressing applied. Patient was sent to ICU for further management.
--- NOTE | 2018-06-06 12:48 | Consultation ---
History of Present Illness Consult date: 06/06/18 Requesting physician: MARCELO JAMES Reason for consult: pulmonary embolism, other (Acute Hypoxemic Respiratory Failure) History of present illness: PULMONARY/CCM CONSULT NOTE (Full dictation # [id number]) Please see dictated notes for full details Past History Past Medical History: DVT, hypertension, pulmonary embolism Medications and Allergies Allergies Allergy/AdvReac Type Severity Reaction Status Date / Time No Known Allergies Allergy Verified 08/23/14 08:28 Home Medications Medication Instructions Recorded Confirmed Last Taken Type Allopurinol [Zyloprim] 300 mg PO BID 06/05/18 06/05/18 06/05/18 History Aspirin [Adult Low Dose Aspirin EC] 81 mg PO DAILY 06/05/18 06/05/18 06/05/18 History Brimonidine 0.15% [Alphagan P 1 drops OP Q8H 06/05/18 06/05/18 Unknown History 0.15%] Dorzolamide HCl/Timolol Maleat 10 ml OP BID 06/05/18 06/05/18 06/05/18 History [Dorzolamide-Timolol Eye Drops] Furosemide [Lasix TAB] 40 mg PO DAILY 06/05/18 06/05/18 06/05/18 History Gabapentin [Neurontin] 300 mg PO BID 06/05/18 06/05/18 06/05/18 History Ibuprofen [Ibu] 800 mg PO Q8H PRN 06/05/18 06/05/18 Unknown History Latanoprost/Pf [Latanoprost 0.005% 7.5 ml OP QHS 06/05/18 06/05/18 06/04/18 History Eye Drop] Lisinopril 40 mg PO DAILY 06/05/18 06/05/18 06/05/18 History Rosuvastatin (Nf) [Crestor] 20 mg PO DAILY 06/05/18 06/05/18 06/05/18 History Silver Sulfadiazine [Silvadene] 50 gm TP DAILY 06/05/18 06/05/18 06/05/18 History amLODIPine [Norvasc] 10 mg PO DAILY 06/05/18 06/05/18 06/05/18 History methOCARBAMOL [Robaxin TAB] 500 mg PO BID 06/05/18 06/05/18 06/05/18 History Active Meds: Active Medications Acetaminophen (Tylenol) 650 mg PO Q4H PRN PRN Reason: Fever >101 Acetaminophen/Hydrocodone Bitart ([place] 5/325) 2 each PO Q6H PRN PRN Reason: Pain, Moderate (4-6) Albuterol (Proventil) 2.5 mg IH Q6HRT PRN PRN Reason: Shortness Of Breath Allopurinol (Zyloprim) 300 mg PO BID MAX Amlodipine Besylate (Norvasc) 10 mg PO DAILY MAX Atorvastatin Calcium (Lipitor) 40 mg PO QHS MAX Gabapentin (Neurontin) 300 mg PO BID MAX Guaifenesin (Robitussin) 200 mg PO Q4H PRN PRN Reason: Cough Heparin Sodium/Sodium Chloride (Heparin/ 0.45% Nacl-25,000 Unit/500 Ml) 25,000 unit in 500 mls @ 30 mls/hr IV TITR MAX; Protocol Last Admin: 06/06/18 12:30 Dose: 1,500 units/hr, 30 mls/hr Documented by: Alteplase, Recombinant 10 mg/ (Sodium Chloride) 250 mls @ 10 mls/hr EKOSDLUMEN DIRECT MAX Last Admin: 06/06/18 12:30 Dose: 5 mls Documented by: Alteplase, Recombinant 10 mg/ (Sodium Chloride) 250 mls @ 10 mls/hr IV DIRECT MAX Sodium Chloride (Nacl 0.9% 1000 Ml) 1,000 mls @ 30 mls/hr IV DIRECT MAX Sodium Chloride (Nacl 0.9% 1000 Ml) 1,000 mls @ 30 mls/hr SHEATH DIRECT MAX Sodium Chloride (Nacl 0.9% 1000 Ml) 1,000 mls @ 35 mls/hr EKOSCLUMEN DIRECT MAX Last Admin: 06/06/18 11:14 Dose: 15 mls Documented by: Sodium Chloride (Nacl 0.9% 1000 Ml) 1,000 mls @ 30 mls/hr SHEATH DIRECT MAX Sodium Chloride (Nacl 0.9% 1000 Ml) 1,000 mls @ 35 mls/hr EKOSCLUMEN DIRECT MAX Last Admin: 06/06/18 11:15 Dose: 10 mls Documented by: Latanoprost (Latanoprost 0.005%) 1 drops OU QHS MAX Lisinopril (Zestril) 40 mg PO DAILY [facility] Methocarbamol (Robaxin) 500 mg PO BID [facility] Miscellaneous Medication (Dorzolamide Hcl/Timolol Maleat [Dorzolamide-Timolol Eye Drops]) 10 ml OP BID [facility] Morphine Sulfate (Morphine) 2 mg IV Q3H PRN PRN Reason: Pain, Moderate (4-6) Morphine Sulfate (Morphine) 2 mg IV Q4H PRN PRN Reason: Pain, Moderate (4-6) Morphine Sulfate (Morphine) 4 mg IV Q4H PRN PRN Reason: Pain , Severe (7-10) Ondansetron HCl (Zofran) 4 mg IV Q8H PRN PRN Reason: Nausea And Vomiting Ondansetron HCl (Zofran) 4 mg IV Q8H PRN PRN Reason: Nausea And Vomiting Silver Sulfadiazine (Thermazene 50 Gram) 1 applic TP DAILY [facility] Temazepam (Restoril) 15 mg PO QHS PRN PRN Reason: Insomnia Warfarin Sodium (Coumadin) 10 mg PO DAILY@1700 [facility] Physical Examination Vital signs: Vital Signs Temp Pulse Resp BP Pulse Ox 98.7 F 100 H 20 91/62 89 06/05/18 20:03 06/05/18 20:03 06/05/18 20:03 06/05/18 20:03 06/05/18 20:03 Results - Laboratory Findings CBC and BMP: 06/06/18 09:59 06/06/18 13:35 PT/INR, D-dimer PT 15.0 Sec. (12.2-14.9) H 06/06/18 09:59 INR 1.14 (0.87-1.13) H 06/06/18 09:59 D-Dimer 4730.92 ng/mlDDU (0-234) H 06/05/18 21:14 Abnormal lab findings: Abnormal Labs 06/05/18 06/05/18 06/05/18 20:15 20:15 21:14 RBC Hgb 15.6 H Hct 47.0 H MCV Plt Count 125 L [place] % (Auto) 9.8 H PT INR APTT D-Dimer 4730.92 H Heparin Anti-Xa Level Chloride Carbon Dioxide 18 L Creatinine 1.7 H Glucose 149 H Calcium NT-Pro-B Natriuret Pep 06/05/18 06/05/18 06/05/18 21:14 22:46 22:46 RBC Hgb Hct MCV Plt Count 102 L [place] % (Auto) PT 16.1 H INR 1.25 H APTT D-Dimer Heparin Anti-Xa Level Chloride Carbon Dioxide Creatinine Glucose Calcium NT-Pro-B Natriuret Pep 4306 H 06/06/18 06/06/18 06/06/18 06:20 06:20 09:59 RBC 5.27 H Hgb 16.3 H Hct 49.8 H D MCV 95 H Plt Count 85 L [place] % (Auto) PT 15.8 H INR 1.22 H APTT D-Dimer Heparin Anti-Xa Level 1.10 H Chloride 107.4 H Carbon Dioxide 20 L Creatinine Glucose 113 H Calcium 8.2 L NT-Pro-B Natriuret Pep 06/06/18 06/06/18 09:59 09:59 RBC Hgb Hct MCV Plt Count [place] % (Auto) PT 15.0 H INR 1.14 H APTT 37.7 H D-Dimer Heparin Anti-Xa Level Chloride Carbon Dioxide Creatinine Glucose 138 H Calcium 8.3 L NT-Pro-B Natriuret Pep
[2018-06-06] MEDS: NEURONTIN PO SCH ×2 (13:00→21:58)
[2018-06-06] MEDS: NORVASC PO SCH (13:00)
[2018-06-06] MEDS: ZESTRIL PO SCH (13:00)
[2018-06-06] MEDS: ZYLOPRIM PO SCH ×2 (13:00→21:57)
[2018-06-06] MEDS: ROBAXIN PO SCH ×2 (13:00→22:20)
[2018-06-06 14:42] LABS: BUN/Creatinine Ratio 13; Blood Urea Nitrogen 16 mg/dL (9-20); Calcium 8.8 mg/dL (8.4-10.2); Hemolysis Index 28
--- NOTE | 2018-06-06 17:11 | Consultation ---
History of Present Illness - Reason for Consult Consult date: 06/06/18 acute renal failure Requesting physician: MARCELO JAMES - History of Present Illness This is a 63 y/o male who presented to [facility] ED with c/o chest pain, shortness of breath, fatigue, and generalize weakness. Pt reports having multiple pulmonary embolism in the past. CTA chest IV contrast yesterday showed acute bilateral pulmonary embolism. Vascular surgery consulted for massive pulmonary embolism with saddle embolus and right heart strain. S/p pharmacal mechanical thrombolysis with bilateral pulmonary artery EKOS placement, pulmonary angiogram on 06/06/18. On admission, SCR level was 1.7, today's SCr level was 1.2. We were consulted to evaluate this pt who has ERIC. Pt denies hx of kidney problems to his knowledge. Pt does report taking eight Aleve and six ibuprofen (800 mg) over the past week for c/o back pain. Past History Past Medical History: DVT, hypertension, pulmonary embolism Medications and Allergies Allergies Allergy/AdvReac Type Severity Reaction Status Date / Time No Known Allergies Allergy Verified 08/23/14 08:28 Home Medications Medication Instructions Recorded Confirmed Last Taken Type Allopurinol [Zyloprim] 300 mg PO BID 06/05/18 06/05/18 06/05/18 History Aspirin [Adult Low Dose Aspirin EC] 81 mg PO DAILY 06/05/18 06/05/18 06/05/18 History Brimonidine 0.15% [Alphagan P 1 drops OP Q8H 06/05/18 06/05/18 Unknown History 0.15%] Dorzolamide HCl/Timolol Maleat 10 ml OP BID 06/05/18 06/05/18 06/05/18 History [Dorzolamide-Timolol Eye Drops] Furosemide [Lasix TAB] 40 mg PO DAILY 06/05/18 06/05/18 06/05/18 History Gabapentin [Neurontin] 300 mg PO BID 06/05/18 06/05/18 06/05/18 History Ibuprofen [Ibu] 800 mg PO Q8H PRN 06/05/18 06/05/18 Unknown History Latanoprost/Pf [Latanoprost 0.005% 7.5 ml OP QHS 06/05/18 06/05/18 06/04/18 History Eye Drop] Lisinopril 40 mg PO DAILY 06/05/18 06/05/18 06/05/18 History Rosuvastatin (Nf) [Crestor] 20 mg PO DAILY 06/05/18 06/05/18 06/05/18 History Silver Sulfadiazine [Silvadene] 50 gm TP DAILY 06/05/18 06/05/18 06/05/18 History amLODIPine [Norvasc] 10 mg PO DAILY 06/05/18 06/05/18 06/05/18 History methOCARBAMOL [Robaxin TAB] 500 mg PO BID 06/05/18 06/05/18 06/05/18 History Active Meds: Active Medications Acetaminophen (Tylenol) 650 mg PO Q4H PRN PRN Reason: Fever >101 Acetaminophen/Hydrocodone Bitart ([place] 5/325) 2 each PO Q6H PRN PRN Reason: Pain, Moderate (4-6) Albuterol (Proventil) 2.5 mg IH Q6HRT PRN PRN Reason: Shortness Of Breath Allopurinol (Zyloprim) 300 mg PO BID MAX Amlodipine Besylate (Norvasc) 10 mg PO DAILY MAX Atorvastatin Calcium (Lipitor) 40 mg PO QHS MAX Gabapentin (Neurontin) 300 mg PO BID MAX Guaifenesin (Robitussin) 200 mg PO Q4H PRN PRN Reason: Cough Heparin Sodium/Sodium Chloride (Heparin/ 0.45% Nacl-25,000 Unit/500 Ml) 25,000 unit in 500 mls @ 30 mls/hr IV TITR MAX; Protocol Last Admin: 06/06/18 12:30 Dose: 1,500 units/hr, 30 mls/hr Documented by: Alteplase, Recombinant 10 mg/ (Sodium Chloride) 250 mls @ 10 mls/hr EKOSDLUMEN DIRECT MAX Last Admin: 06/06/18 12:30 Dose: 5 mls Documented by: Alteplase, Recombinant 10 mg/ (Sodium Chloride) 250 mls @ 10 mls/hr IV DIRECT MAX Sodium Chloride (Nacl 0.9% 1000 Ml) 1,000 mls @ 30 mls/hr IV DIRECT MAX Sodium Chloride (Nacl 0.9% 1000 Ml) 1,000 mls @ 30 mls/hr SHEATH DIRECT MAX Sodium Chloride (Nacl 0.9% 1000 Ml) 1,000 mls @ 35 mls/hr EKOSCLUMEN DIRECT MAX Last Admin: 06/06/18 11:14 Dose: 15 mls Documented by: Sodium Chloride (Nacl 0.9% 1000 Ml) 1,000 mls @ 30 mls/hr SHEATH DIRECT MAX Sodium Chloride (Nacl 0.9% 1000 Ml) 1,000 mls @ 35 mls/hr EKOSCLUMEN DIRECT MAX Last Admin: 06/06/18 11:15 Dose: 10 mls Documented by: Latanoprost (Latanoprost 0.005%) 1 drops OU QHS [facility] Lisinopril (Zestril) 40 mg PO DAILY [facility] Methocarbamol (Robaxin) 500 mg PO BID [facility] Miscellaneous Medication (Dorzolamide Hcl/Timolol Maleat [Dorzolamide-Timolol Eye Drops]) 10 ml OP BID [facility] Morphine Sulfate (Morphine) 2 mg IV Q4H PRN PRN Reason: Pain , Moderate Morphine Sulfate (Morphine) 4 mg IV Q4H PRN PRN Reason: Pain , Severe (7-10) Ondansetron HCl (Zofran) 4 mg IV Q8H PRN PRN Reason: Nausea And Vomiting Silver Sulfadiazine (Thermazene 50 Gram) 1 applic TP DAILY [facility] Temazepam (Restoril) 15 mg PO QHS PRN PRN Reason: Insomnia Warfarin Sodium (Coumadin) 10 mg PO DAILY@1700 [facility] Review of Systems Constitutional: fatigue, weakness Cardiovascular: chest pain, shortness of breath Respiratory: shortness of breath, dyspnea on exertion Gastrointestinal: no abdominal pain, no nausea, no vomiting, no diarrhea Genitourinary Male: no dysuria, no hematuria Musculoskeletal: other (chronic back pain) Integumentary: no sores, no wounds Neurological: no numbness, no tingling, no change in speech Psychiatric: no anxiety, no depression Exam - Vital Signs Vital signs: Vital Signs Temp Pulse Resp BP Pulse Ox 98.7 F 100 H 20 91/62 89 06/05/18 20:03 06/05/18 20:03 06/05/18 20:03 06/05/18 20:03 06/05/18 20:03 - General Appearance General appearance: well-developed EENT: ATNC Neck: Present: neck supple Respiratory: Clear to Ascultation Heart: regular, S1S2 Gastrointestinal: Present: normoactive bowel sounds. Absent: tenderness Integumentary: warm and dry Neurologic: alert and oriented x3 Musculoskeletal: Present: other (trace edema to BLE) Psychiatric: mood/affect appropriate, cooperative Results - Lab Results 06/06/18 09:59 06/06/18 13:35 Most recent lab results Calcium 8.8 mg/dL (8.4-10.2) 06/06/18 13:35 Assessment and Plan Acute Kidney Injury possibly prerenal, DENNY, possible underlying CKD, NSAIDs use, r/o obstruction: - Renal function reviewed, SCr level was 1.2-1.5 today, yesterday's SCr level was 1.7 - Renally dose meds - S/p CTA chest IV contrast on 06/05/18 - S/p EKOS placement with total of 0.9% NS infusion of 70 ml/hr - Obtain urine eosinophils - If renal function worsens, will need to hold lisinopril - Obtain Renal US - Avoid NSAIDs - d/w pt - Obtain urine lytes/protein - [place] Catheter: No (Condom Cath) - Renal plan d/w Dr Cardenas Acute Bilateral Pulmonary Embolism: Vascular surgery consulted for massive pulmonary embolism with saddle embolus and right heart strain. S/p pharmacal mechanical thrombolysis with bilateral pulmonary artery EKOS placement, pulmonary angiogram on 06/06/18 Essential Hypertension: - Resume home meds - Adjust meds as needed
[2018-06-06] MEDS: MORPHINE IV PRN (18:00)
[2018-06-06] MEDS: COUMADIN PO SCH (18:15)
[2018-06-06 18:26] LABS: Basophils # (Auto) 0.1 K/mm3 (0.0-0.1); Eosinophils # (Auto) 0.1 K/mm3 (0.0-0.4); Eosinophils % (Auto) 1.3 % (0.0-4.3); Hematocrit 45.9 % (35.5-45.6); Hemoglobin 15.2 gm/dl (11.8-15.2); Lymphocytes # (Auto) 1.7 K/mm3 (1.2-5.4); Lymphocytes % (Auto) 30.1 % (13.4-35.0); Mean Corpuscular HGB Conc 33 % (32-34); Mean Corpuscular Volume 93 fl (84-94); Monocytes # (Auto) 0.5 K/mm3 (0.0-0.8); Monocytes % (Auto) 9.1 % (0.0-7.3); Platelet Count 103 K/mm3 (140-440); Red Blood Count 4.95 M/mm3 (3.65-5.03); Red Cell Distribution Width 14.2 % (13.2-15.2)
[2018-06-06] MEDS: THERMAZENE 50 GRAM TP SCH (20:36)
[2018-06-06] MEDS: PEPCID PO SCH (21:58)
[2018-06-06] MEDS: NORCO 5/325 PO PRN (22:20)
[2018-06-06] MEDS: LATANOPROST 0.005% OU SCH (22:23)
[2018-06-06 23:03] LABS: Hematocrit 43.3 % (35.5-45.6); Hemoglobin 14.6 gm/dl (11.8-15.2); Mean Corpuscular HGB Conc 34 % (32-34); Mean Corpuscular Volume 93 fl (84-94); Platelet Count 110 K/mm3 (140-440); Red Blood Count 4.66 M/mm3 (3.65-5.03); Red Cell Distribution Width 14.6 % (13.2-15.2)
[2018-06-06 23:14] LABS: Basophils # (Auto) 0.1 K/mm3 (0.0-0.1); Basophils % (Auto) 1.3 % (0.0-1.8); Eosinophils # (Auto) 0.1 K/mm3 (0.0-0.4); Eosinophils % (Auto) 1.9 % (0.0-4.3); Fibrinogen 345 mg/dl (211-480); Lymphocytes # (Auto) 1.8 K/mm3 (1.2-5.4); Lymphocytes % (Auto) 35.4 % (13.4-35.0); Monocytes # (Auto) 0.5 K/mm3 (0.0-0.8); Monocytes % (Auto) 9.9 % (0.0-7.3)
[2018-06-07] MEDS: ROBITUSSIN PO PRN ×2 (00:42→04:35)
--- NOTE | 2018-06-07 02:21 | Consultation ---
PULMONARY CRITICAL CARE CONSULTATION NOTE CONSULTING PHYSICIAN: Jaime Vieira M.D. REASON FOR CONSULTATION: Multiple pulmonary embolisms. CHIEF COMPLAINT AND HISTORY OF PRESENT ILLNESS: The patient is a 63-year-old -Romanian male whose past medical history indeed is significant for history of prior venous thromboembolic phenomenon for which he states he was on Coumadin for anticoagulation for about a year; however, he had stopped taking that medications. He had been in followup with his physicians he said. He came in complaining of increasing shortness of breath, chest pain that had been going on for a few days. After about 3-4 days, he decided to call a family member and they advised him to go into the hospital. He complained of increasing pain with exertion and relieved at rest. He denied any gross or streaky hemoptysis. He denied any recent long distance travel. He did say that he fell in his yard a few days ago and may have injured his lower extremity, but did not require any surgery. He was evaluated in the Emergency Room. A CT angio I believe was ordered as part of the workup and he was found to have multiple pulmonary emboli according to the report. He actually did have a saddle embolus with overall clot burden being large, I believe there was evidence of right ventricular strain; vascular team was consulted and catheter-directed thrombolysis was offered to the patient and performed. I stopped by to see him after the EKOS catheters had been placed. He was resting in bed. The chest pain was better. He was still short of breath. He was on supplemental oxygen, which was new. He denied any bleeding. Denied hematochezia. Denied melena. Denies hemoptysis. He denied any loss of consciousness or syncopal episodes prior to coming into the hospital and since. This really is as much of the history of presentation as I have. I should mention that with regards to his tobacco use/abuse history, he describes himself as a never smoker. PAST MEDICAL HISTORY: Again, significant for the venosus thromboembolic phenomenon. He has a history of hypertension. He has a history of PE and DVT. He has a history of gout and he is obese. PAST SURGICAL HISTORY: He has had an appendectomy in the past. He has had an IVC filter placed. MEDICATIONS: He was on at the time I stopped by to see were reviewed, pertinent medications include the following: Tylenol 650 mg p.o. q.4 hours p.r.n. fever greater than 101 degrees Fahrenheit, [place] 5/325 two tablets p.o. q.6 hours p.r.n. moderate pain, p.r.n. albuterol treatments 2.5 mg nebulized q 6 hours for shortness of breath, allopurinol 300 mg p.o. b.i.d. He was on TPA via the EKOS catheter systems. He was on Norvasc 10 mg p.o. daily, Lipitor 40 mg p.o. at bedtime, Neurontin 300 mg p.o. b.i.d., IV heparin drip was also going, latanoprost eye drops 1 drop to affected eyes at bedtime, lisinopril 40 mg p.o. daily, Robaxin 500 mg p.o. b.i.d., nonformulary medication 10 mL b.i.d., morphine 4 mg IV q. 4 hours p.r.n. severe pain and 2 mg IV q. 4 hours p.r.n. moderate pain, Zofran 4 mg IV q. 8 hours p.r.n. nausea and vomiting. Warfarin 10 mg p.o. daily and restoril 15 mg p.o. at bedtime p.r.n. insomnia. ALLERGIES: No known drug allergies. DIET: Obese gentleman. Denies acute weight loss or gain in the preceding few weeks to months. FAMILY AND SOCIAL HISTORY: Lives in the community. Denies alcohol or illicit drug use or abuse. He is a never smoker. He denies any family history of venous thromboembolic phenomenon. REVIEW OF SYSTEMS: No overt loss of consciousness. No new onset seizures. No new onset focal weakness. Denies heat or cold intolerance. Denies polydipsia. Denies polyuria. Denied palpitations. Denied any new lumps, bumps, or swellings on his body. Complete 13-system review of systems obtained. Pertinent positives and/or negatives as in body of history above, otherwise, they are noncontributory. PHYSICAL EXAMINATION: VITAL SIGNS: At presentation, he was afebrile, temperature 98.7 degrees Fahrenheit with a pulse of 100, respiratory rate of 20, blood pressure 91/62 as low as 78/52 at presentation and O2 sats 89%, inspired oxygen concentration at that time was not recorded. When I stopped by to see him, he was 95% on 3 liters nasal cannula. GENERAL: Obese, elderly looking -Romanian male. Normocephalic, atraumatic, talking to me with slightly interrupted sentences, in mild respiratory distress at rest. HEAD, EYES, EARS, NOSE AND THROAT: He was anicteric, no conjunctival erythema. Oropharynx was moist. He is a Mallampati #3 oropharynx. No gross jugular venous distention, no palpable lymph nodes in the supraclavicular or submandibular lymph node chains. No thyromegaly. He does have a large neck circumference. LUNGS: Auscultation of both lung esparza diminished bilateral breath sounds, bibasilar inspiratory rales. No wheezing. HEART: Heart sounds 1 and 2 are heard. They were regular in rate and rhythm at the time of my evaluation without rubs or murmurs. ABDOMEN: Soft, protuberant. Bowel sounds are positive, nontender. No palpable hepatosplenomegaly. EXTREMITIES: Without overt digital clubbing or cyanosis. No significant pedal edema. Dorsalis pedis pulses were palpable bilaterally. NEUROLOGIC: The pupils were equal, round about 3 mm, reactive to light. Extraocular muscles and movements were intact. He moves all 4 extremities spontaneously. His mood is normal and his affect is appropriate. SKIN: Normal turgor without cellulitis or rashes. It is warm to touch. LABORATORY AND DIAGNOSTIC DATA: From my review are as follows: Admission white cell count 6800, hemoglobin 13.9, hematocrit 42.6 and platelet count of 102. Serum INR was 1.25. D-dimer was elevated 4730. Serum sodium 140, potassium 3.8, chloride 106, bicarbonate 18, BUN 20, creatinine 1.7, glucose 149. BNP was elevated at 4306. Troponin was within normal limits. No microbiology studies. I do not have a 2D echocardiogram here. Again, I am unable to pull up the CT angiogram. I was able to review the result, positive for acute bilateral pulmonary emboli with saddle embolus on overall clot burden that is large and finding suggestive of right heart strain. There was also focal consolidated opacity within the left upper lobe. Underlying mass not excluded. ASSESSMENT: 1. Acute hypoxemic respiratory failure. 2. Acute bilateral pulmonary embolus with saddle embolism. 3. Cardiomyopathy with evidence of right heart strain. 4. Obesity. 5. Lung mass/nodule. 6. History of gout. 7. Hypertension. PLAN: I am certainly bothered by the question of the possible lung mass. I will try and review that film image with the radiologist. I am unable to pull up the film at this point; however, if he does have a mass, first we will focus on treatment of the pulmonary emboli. However, we need to make sure that this is not embolism related to malignancy. So, recommendations will be as follows: 1. Continue with catheter-directed thrombolysis for the large clot burden. 2. Continue with systemic anticoagulation with warfarin. 3. We will review the CT of the chest and either repeat a CT scan in about 3 months in this nonsmoker or actually try and shoot for getting a biopsy of some sort. We will recommend initial treatment of pulmonary emboli for a few weeks prior to that intervention. Oxygen will be weaned to keep sats greater than or equal to about 90%. Aspiration precautions will be maintained. I will begin GI prophylaxis in this gentleman on full anticoagulation and at risk of bleeding. Continue tobacco abstinence has been encouraged. Aspiration precautions will be maintained. Physical therapy and mobilization will begin as soon as he is cleared after the EKOS catheter was pulled. Flu and pneumonia vaccination will be addressed per protocol. Other chronic disease medications will be continued per the attending physician. Thank you very much for the consult. We will follow along and make further recommendations as picture progresses/becomes clearer. He is critically ill. No longer requiring vasopressor support at this point, but at risk of from decompensation in both the vascular, hematologic and cardiopulmonary systems. At this time, I have spent about 35-40 minutes of critical care time without overlap and excluding any procedural time that may be necessary. JOB# [id number] NOLAN/ASIA SPARROW
[2018-06-07 05:48] LABS: Basophils % (Auto) 0.8 % (0.0-1.8); Eosinophils # (Auto) 0.1 K/mm3 (0.0-0.4); Hemoglobin 14.1 gm/dl (11.8-15.2); Lymphocytes # (Auto) 1.5 K/mm3 (1.2-5.4); Lymphocytes % (Auto) 35.9 % (13.4-35.0); Mean Corpuscular HGB Conc 33 % (32-34); Mean Corpuscular Volume 95 fl (84-94); Monocytes # (Auto) 0.4 K/mm3 (0.0-0.8); Monocytes % (Auto) 9.6 % (0.0-7.3); Red Blood Count 4.54 M/mm3 (3.65-5.03); Red Cell Distribution Width 14.7 % (13.2-15.2)
[2018-06-07 05:50] LABS: BUN/Creatinine Ratio 12; Blood Urea Nitrogen 13 mg/dL (9-20); Calcium 8.3 mg/dL (8.4-10.2); Hemolysis Index 9; Platelet Count 88 K/mm3 (140-440)
[2018-06-07 05:53] LABS: Fibrinogen 375 mg/dl (211-480); INR 1.13 (0.87-1.13)
[2018-06-07] MEDS ORDERED: NACL 0.9% 500 ML 1,000 ML ONE (09:16)
--- NOTE | 2018-06-07 09:28 | Progress Note ---
Assessment and Plan Patient is doing well following thrombolytic therapy for his pulmonary embolism. This is his second major pulmonary embolism. He will need to remain on anticoagulation lifelong. The patient will be brought to the cardiac catheterization lab for removal of his thrombolytics catheters, evaluation of his pulmonary arteries and placement of an IVC filter. Subjective Date of service: 06/07/18 Interval history: Patient resting comfortably. Oxygen by nasal cannula. No shortness of breath. EKOS catheters through right groin. His dressing is clean with only a minimal amount of drainage. Objective - Constitutional Vitals: Vital Signs - 12hr 06/06/18 06/06/18 06/06/18 21:30 21:40 21:50 Temperature Pulse Rate 89 91 H 84 Pulse Rate [ From Monitor] Pulse Rate [ Left Dorsalis Pedis] Pulse Rate [ Left Radial] Pulse Rate [ Right Dorsalis Pedis] Pulse Rate [ Right Radial] Respiratory 24 25 H 25 H Rate Respiratory Rate [Back] Blood Pressure 109/72 109/72 112/77 O2 Sat by Pulse 91 93 92 Oximetry 06/06/18 06/06/18 06/06/18 22:00 22:10 22:20 Temperature Pulse Rate 86 88 86 Pulse Rate [ 85 From Monitor] Pulse Rate [ 85 Left Dorsalis Pedis] Pulse Rate [ 85 Left Radial] Pulse Rate [ 85 Right Dorsalis Pedis] Pulse Rate [ 85 Right Radial] Respiratory 23 21 24 Rate Respiratory 14 Rate [Back] Blood Pressure 124/84 109/72 121/82 O2 Sat by Pulse 91 92 91 Oximetry 06/06/18 06/06/18 06/06/18 22:30 22:40 22:50 Temperature Pulse Rate 84 85 82 Pulse Rate [ From Monitor] Pulse Rate [ Left Dorsalis Pedis] Pulse Rate [ Left Radial] Pulse Rate [ Right Dorsalis Pedis] Pulse Rate [ Right Radial] Respiratory 13 22 13 Rate Respiratory Rate [Back] Blood Pressure 106/78 124/84 109/62 O2 Sat by Pulse 93 92 94 Oximetry 06/06/18 06/06/18 06/06/18 23:00 23:10 23:20 Temperature Pulse Rate 82 81 79 Pulse Rate [ From Monitor] Pulse Rate [ Left Dorsalis Pedis] Pulse Rate [ Left Radial] Pulse Rate [ Right Dorsalis Pedis] Pulse Rate [ Right Radial] Respiratory 13 20 21 Rate Respiratory Rate [Back] Blood Pressure 99/71 99/71 102/67 O2 Sat by Pulse 93 92 91 Oximetry 06/06/18 06/06/18 06/06/18 23:30 23:40 23:50 Temperature Pulse Rate 87 83 79 Pulse Rate [ From Monitor] Pulse Rate [ Left Dorsalis Pedis] Pulse Rate [ Left Radial] Pulse Rate [ Right Dorsalis Pedis] Pulse Rate [ Right Radial] Respiratory 24 19 17 Rate Respiratory Rate [Back] Blood Pressure 88/65 98/70 109/73 O2 Sat by Pulse 92 91 92 Oximetry 06/07/18 06/07/18 06/07/18 00:00 00:10 00:20 Temperature 98.6 F Pulse Rate 76 78 77 Pulse Rate [ From Monitor] Pulse Rate [ Left Dorsalis Pedis] Pulse Rate [ Left Radial] Pulse Rate [ Right Dorsalis Pedis] Pulse Rate [ Right Radial] Respiratory 20 17 14 Rate Respiratory Rate [Back] Blood Pressure 101/72 101/72 105/70 O2 Sat by Pulse 91 91 90 Oximetry 06/07/18 06/07/18 06/07/18 00:30 00:40 00:50 Temperature Pulse Rate 78 76 78 Pulse Rate [ From Monitor] Pulse Rate [ Left Dorsalis Pedis] Pulse Rate [ Left Radial] Pulse Rate [ Right Dorsalis Pedis] Pulse Rate [ Right Radial] Respiratory 17 18 19 Rate Respiratory Rate [Back] Blood Pressure 102/66 105/70 91/65 O2 Sat by Pulse 90 90 88 Oximetry 06/07/18 06/07/18 06/07/18 01:00 01:10 01:20 Temperature Pulse Rate 75 77 77 Pulse Rate [ From Monitor] Pulse Rate [ Left Dorsalis Pedis] Pulse Rate [ Left Radial] Pulse Rate [ Right Dorsalis Pedis] Pulse Rate [ Right Radial] Respiratory 19 15 15 Rate Respiratory Rate [Back] Blood Pressure 97/66 102/66 106/67 O2 Sat by Pulse 91 90 90 Oximetry 06/07/18 06/07/18 06/07/18 01:30 01:40 01:50 Temperature Pulse Rate 76 75 77 Pulse Rate [ From Monitor] Pulse Rate [ Left Dorsalis Pedis] Pulse Rate [ Left Radial] Pulse Rate [ Right Dorsalis Pedis] Pulse Rate [ Right Radial] Respiratory 16 19 16 Rate Respiratory Rate [Back] Blood Pressure 96/65 96/65 92/67 O2 Sat by Pulse 91 89 95 Oximetry 06/07/18 06/07/18 06/07/18 02:00 02:10 02:20 Temperature Pulse Rate 76 76 76 Pulse Rate [ From Monitor] Pulse Rate [ Left Dorsalis Pedis] Pulse Rate [ Left Radial] Pulse Rate [ Right Dorsalis Pedis] Pulse Rate [ Right Radial] Respiratory 19 17 22 Rate Respiratory Rate [Back] Blood Pressure 96/67 92/67 106/71 O2 Sat by Pulse 90 91 92 Oximetry 06/07/18 06/07/18 06/07/18 02:30 02:40 02:50 Temperature Pulse Rate 75 80 75 Pulse Rate [ From Monitor] Pulse Rate [ Left Dorsalis Pedis] Pulse Rate [ Left Radial] Pulse Rate [ Right Dorsalis Pedis] Pulse Rate [ Right Radial] Respiratory 18 18 20 Rate Respiratory Rate [Back] Blood Pressure 105/73 105/73 104/72 O2 Sat by Pulse 91 91 91 Oximetry 06/07/18 06/07/18 06/07/18 03:00 03:10 03:20 Temperature Pulse Rate 74 77 74 Pulse Rate [ From Monitor] Pulse Rate [ Left Dorsalis Pedis] Pulse Rate [ Left Radial] Pulse Rate [ Right Dorsalis Pedis] Pulse Rate [ Right Radial] Respiratory 17 17 20 Rate Respiratory Rate [Back] Blood Pressure 108/70 108/70 103/67 O2 Sat by Pulse 90 90 91 Oximetry 06/07/18 06/07/18 06/07/18 03:30 03:40 03:41 Temperature 98.3 F Pulse Rate 73 68 Pulse Rate [ From Monitor] Pulse Rate [ 75 Left Dorsalis Pedis] Pulse Rate [ 75 Left Radial] Pulse Rate [ 75 Right Dorsalis Pedis] Pulse Rate [ 75 Right Radial] Respiratory 18 16 Rate Respiratory Rate [Back] Blood Pressure 103/70 103/70 O2 Sat by Pulse 92 91 Oximetry 06/07/18 06/07/18 06/07/18 03:42 03:45 03:50 Temperature Pulse Rate 75 75 Pulse Rate [ 75 From Monitor] Pulse Rate [ 75 Left Dorsalis Pedis] Pulse Rate [ 75 Left Radial] Pulse Rate [ 75 Right Dorsalis Pedis] Pulse Rate [ 75 Right Radial] Respiratory 16 Rate Respiratory Rate [Back] Blood Pressure 95/68 O2 Sat by Pulse 91 89 Oximetry 06/07/18 06/07/18 06/07/18 03:55 04:00 04:10 Temperature 98.3 F Pulse Rate 76 75 Pulse Rate [ From Monitor] Pulse Rate [ Left Dorsalis Pedis] Pulse Rate [ Left Radial] Pulse Rate [ Right Dorsalis Pedis] Pulse Rate [ Right Radial] Respiratory 16 17 Rate Respiratory Rate [Back] Blood Pressure 104/67 104/67 O2 Sat by Pulse 89 88 Oximetry 06/07/18 06/07/18 06/07/18 04:20 04:30 04:40 Temperature Pulse Rate 73 74 75 Pulse Rate [ From Monitor] Pulse Rate [ Left Dorsalis Pedis] Pulse Rate [ Left Radial] Pulse Rate [ Right Dorsalis Pedis] Pulse Rate [ Right Radial] Respiratory 17 20 22 Rate Respiratory Rate [Back] Blood Pressure 100/67 106/67 106/67 O2 Sat by Pulse 89 90 87 Oximetry 06/07/18 06/07/18 06/07/18 04:50 05:00 05:10 Temperature Pulse Rate 74 77 74 Pulse Rate [ From Monitor] Pulse Rate [ Left Dorsalis Pedis] Pulse Rate [ Left Radial] Pulse Rate [ Right Dorsalis Pedis] Pulse Rate [ Right Radial] Respiratory 21 22 19 Rate Respiratory Rate [Back] Blood Pressure 100/71 100/68 100/68 O2 Sat by Pulse 88 89 85 Oximetry 06/07/18 06/07/18 06/07/18 05:20 05:30 05:40 Temperature Pulse Rate 72 76 84 Pulse Rate [ From Monitor] Pulse Rate [ Left Dorsalis Pedis] Pulse Rate [ Left Radial] Pulse Rate [ Right Dorsalis Pedis] Pulse Rate [ Right Radial] Respiratory 21 20 23 Rate Respiratory Rate [Back] Blood Pressure 101/70 98/65 98/65 O2 Sat by Pulse 88 89 90 Oximetry 06/07/18 06/07/18 06/07/18 05:50 06:00 06:10 Temperature Pulse Rate 75 74 75 Pulse Rate [ From Monitor] Pulse Rate [ Left Dorsalis Pedis] Pulse Rate [ Left Radial] Pulse Rate [ Right Dorsalis Pedis] Pulse Rate [ Right Radial] Respiratory 21 19 17 Rate Respiratory Rate [Back] Blood Pressure 102/69 102/68 102/68 O2 Sat by Pulse 88 90 90 Oximetry 06/07/18 06/07/18 06/07/18 06:20 06:30 06:40 Temperature Pulse Rate 75 74 78 Pulse Rate [ From Monitor] Pulse Rate [ Left Dorsalis Pedis] Pulse Rate [ Left Radial] Pulse Rate [ Right Dorsalis Pedis] Pulse Rate [ Right Radial] Respiratory 17 20 21 Rate Respiratory Rate [Back] Blood Pressure 100/69 111/71 111/71 O2 Sat by Pulse 90 91 89 Oximetry 06/07/18 06/07/18 06/07/18 06:50 07:00 08:00 Temperature 98.6 F Pulse Rate 90 77 Pulse Rate [ From Monitor] Pulse Rate [ Left Dorsalis Pedis] Pulse Rate [ Left Radial] Pulse Rate [ Right Dorsalis Pedis] Pulse Rate [ Right Radial] Respiratory 20 24 Rate Respiratory Rate [Back] Blood Pressure 110/75 115/75 O2 Sat by Pulse 89 89 Oximetry 06/07/18 09:04 Temperature Pulse Rate Pulse Rate [ From Monitor] Pulse Rate [ Left Dorsalis Pedis] Pulse Rate [ Left Radial] Pulse Rate [ Right Dorsalis Pedis] Pulse Rate [ Right Radial] Respiratory Rate Respiratory Rate [Back] Blood Pressure O2 Sat by Pulse 93 Oximetry General appearance: Present: no acute distress - EENT Eyes: EOM intact ENT: hearing intact - Neck Neck: supple, normal ROM - Respiratory Respiratory effort: normal - Cardiovascular Rhythm: regular Extremities: no ischemia - Gastrointestinal General gastrointestinal: Present: deferred Rectal Exam: deferred - Genitourinary Male genitourinary: deferred - Psychiatric Psychiatric: appropriate mood/affect, cooperative - Labs CBC & Chem 7: 06/07/18 04:56 06/07/18 04:56 Labs: Abnormal lab results 06/06/18 06/06/18 06/06/18 Range/Units 09:59 09:59 09:59 WBC (4.5-11.0) K/mm3 RBC 5.27 H (3.65-5.03) M/mm3 Hgb 16.3 H (11.8-15.2) gm/dl Hct 49.8 H D (35.5-45.6) % MCV 95 H (84-94) fl Plt Count 85 L (140-440) K/mm3 Lymph % (Auto) (13.4-35.0) % [place] % (Auto) (0.0-7.3) % PT 15.0 H (12.2-14.9) Sec. INR 1.14 H (0.87-1.13) APTT 37.7 H (24.2-36.6) Sec. Heparin Anti-Xa Level (0.3-0.7) U.I./ml Chloride (98-107) mmol/L Carbon Dioxide (22-30) mmol/L Glucose 138 H (75-100) mg/dL Calcium 8.3 L (8.4-10.2) mg/dL PTH Intact (15-65) pg/mL 06/06/18 06/06/18 06/06/18 Range/Units 13:35 13:35 18:02 WBC (4.5-11.0) K/mm3 RBC (3.65-5.03) M/mm3 Hgb (11.8-15.2) gm/dl Hct 45.9 H (35.5-45.6) % MCV (84-94) fl Plt Count 103 L (140-440) K/mm3 Lymph % (Auto) (13.4-35.0) % [place] % (Auto) 9.1 H (0.0-7.3) % PT (12.2-14.9) Sec. INR (0.87-1.13) APTT (24.2-36.6) Sec. Heparin Anti-Xa Level 1.45 H (0.3-0.7) U.I./ml Chloride (98-107) mmol/L Carbon Dioxide 21 L (22-30) mmol/L Glucose 113 H (75-100) mg/dL Calcium (8.4-10.2) mg/dL PTH Intact (15-65) pg/mL 06/06/18 06/06/18 06/06/18 Range/Units 18:02 22:46 22:46 WBC (4.5-11.0) K/mm3 RBC (3.65-5.03) M/mm3 Hgb (11.8-15.2) gm/dl Hct (35.5-45.6) % MCV (84-94) fl Plt Count 110 L (140-440) K/mm3 Lymph % (Auto) 35.4 H (13.4-35.0) % [place] % (Auto) 9.9 H (0.0-7.3) % PT (12.2-14.9) Sec. INR (0.87-1.13) APTT (24.2-36.6) Sec. Heparin Anti-Xa Level 1.32 H < 0.10 L (0.3-0.7) U.I./ml Chloride (98-107) mmol/L Carbon Dioxide (22-30) mmol/L Glucose (75-100) mg/dL Calcium (8.4-10.2) mg/dL PTH Intact (15-65) pg/mL 06/07/18 06/07/18 06/07/18 Range/Units 04:56 04:56 04:56 WBC 4.2 L (4.5-11.0) K/mm3 RBC (3.65-5.03) M/mm3 Hgb (11.8-15.2) gm/dl Hct (35.5-45.6) % MCV 95 H (84-94) fl Plt Count 88 L (140-440) K/mm3 Lymph % (Auto) 35.9 H (13.4-35.0) % [place] % (Auto) 9.6 H (0.0-7.3) % PT (12.2-14.9) Sec. INR (0.87-1.13) APTT (24.2-36.6) Sec. Heparin Anti-Xa Level < 0.10 L (0.3-0.7) U.I./ml Chloride 107.7 H (98-107) mmol/L Carbon Dioxide (22-30) mmol/L Glucose 106 H (75-100) mg/dL Calcium 8.3 L (8.4-10.2) mg/dL PTH Intact (15-65) pg/mL 06/07/18 Range/Units 04:56 WBC (4.5-11.0) K/mm3 RBC (3.65-5.03) M/mm3 Hgb (11.8-15.2) gm/dl Hct (35.5-45.6) % MCV (84-94) fl Plt Count (140-440) K/mm3 Lymph % (Auto) (13.4-35.0) % [place] % (Auto) (0.0-7.3) % PT (12.2-14.9) Sec. INR (0.87-1.13) APTT (24.2-36.6) Sec. Heparin Anti-Xa Level (0.3-0.7) U.I./ml Chloride (98-107) mmol/L Carbon Dioxide (22-30) mmol/L Glucose (75-100) mg/dL Calcium (8.4-10.2) mg/dL PTH Intact 133.4 H (15-65) pg/mL Medications & Allergies - Medications Allergies/Adverse Reactions: Allergies No Known Allergies Allergy (Verified 08/23/14 08:28) Home Medications: Home Medications Medication Instructions Recorded Confirmed Last Taken Type Allopurinol [Zyloprim] 300 mg PO BID 06/05/18 06/05/18 06/05/18 History Aspirin [Adult Low Dose Aspirin EC] 81 mg PO DAILY 06/05/18 06/05/18 06/05/18 History Brimonidine 0.15% [Alphagan P 1 drops OP Q8H 06/05/18 06/05/18 Unknown History 0.15%] Dorzolamide HCl/Timolol Maleat 10 ml OP BID 06/05/18 06/05/18 06/05/18 History [Dorzolamide-Timolol Eye Drops] Furosemide [Lasix TAB] 40 mg PO DAILY 06/05/18 06/05/18 06/05/18 History Gabapentin [Neurontin] 300 mg PO BID 06/05/18 06/05/18 06/05/18 History Ibuprofen [Ibu] 800 mg PO Q8H PRN 06/05/18 06/05/18 Unknown History Latanoprost/Pf [Latanoprost 0.005% 7.5 ml OP QHS 06/05/18 06/05/18 06/04/18 History Eye Drop] Lisinopril 40 mg PO DAILY 06/05/18 06/05/18 06/05/18 History Rosuvastatin (Nf) [Crestor] 20 mg PO DAILY 06/05/18 06/05/18 06/05/18 History Silver Sulfadiazine [Silvadene] 50 gm TP DAILY 06/05/18 06/05/18 06/05/18 History amLODIPine [Norvasc] 10 mg PO DAILY 06/05/18 06/05/18 06/05/18 History methOCARBAMOL [Robaxin TAB] 500 mg PO BID 06/05/18 06/05/18 06/05/18 History Active Medications: Generic Name Dose Route Start Last Admin Trade Name Freq PRN Reason Stop Dose Admin Acetaminophen 650 mg 06/06/18 00:28 Tylenol PO Q4H PRN Fever >101 Acetaminophen/Hydrocodone Bitart 2 each 06/06/18 11:40 06/06/18 22:20 [place] 5/325 PO 2 each Q6H PRN Administration Pain, Moderate (4-6) Albuterol 2.5 mg 06/06/18 00:32 Proventil IH Q6HRT PRN Shortness Of Breath Allopurinol 300 mg 06/06/18 10:00 06/06/18 21:57 Zyloprim PO 300 mg BID MAX Administration Amlodipine Besylate 10 mg 06/06/18 10:00 06/06/18 13:00 Norvasc PO 10 mg DAILY MAX Administration Atorvastatin Calcium 40 mg 06/06/18 22:00 06/06/18 21:57 Lipitor PO 40 mg QHS MAX Administration Famotidine 20 mg 06/06/18 22:00 06/06/18 21:58 Pepcid PO 20 mg BID MAX Administration Gabapentin 300 mg 06/06/18 10:00 06/06/18 21:58 Neurontin PO 300 mg BID MAX Administration Guaifenesin 200 mg 06/06/18 00:27 06/07/18 04:35 Robitussin PO 200 mg Q4H PRN Administration Cough Heparin Sodium/Sodium Chloride 25,000 unit in 500 mls @ 30 mls/hr 06/05/18 23:00 06/06/18 12:30 Heparin/ 0.45% Nacl-25,000 Unit/500 Ml IV 1,500 units/hr TITR MAX 30 mls/hr Administration Protocol 1,500 UNITS/HR Alteplase, Recombinant 10 mg/ 250 mls @ 10 mls/hr 06/06/18 10:00 06/06/18 12:30 Sodium Chloride EKOSDLUMEN 5 mls DIRECT MAX Administration Alteplase, Recombinant 10 mg/ 250 mls @ 10 mls/hr 06/06/18 10:00 Sodium Chloride IV DIRECT MAX Sodium Chloride 1,000 mls @ 30 mls/hr 06/06/18 10:00 Nacl 0.9% 1000 Ml IV DIRECT MAX Sodium Chloride 1,000 mls @ 30 mls/hr 06/06/18 10:00 Nacl 0.9% 1000 Ml SHEATH DIRECT MAX Sodium Chloride 1,000 mls @ 35 mls/hr 06/06/18 10:00 06/06/18 11:14 Nacl 0.9% 1000 Ml EKOSCLUMEN 15 mls DIRECT MAX Administration Sodium Chloride 1,000 mls @ 30 mls/hr 06/06/18 10:00 Nacl 0.9% 1000 Ml SHEATH DIRECT MAX Sodium Chloride 1,000 mls @ 35 mls/hr 06/06/18 10:00 06/06/18 11:15 Nacl 0.9% 1000 Ml EKOSCLUMEN 10 mls DIRECT MAX Administration Latanoprost 1 drops 06/06/18 22:00 06/06/18 22:23 Latanoprost 0.005% OU 1 drops QHS MAX Administration Lisinopril 40 mg 06/06/18 10:00 06/06/18 13:00 Zestril PO 40 mg DAILY MAX Administration Methocarbamol 500 mg 06/06/18 10:00 06/06/18 22:20 Robaxin PO 500 mg BID MAX Administration Morphine Sulfate 2 mg 06/06/18 13:03 Morphine IV Q4H PRN Pain , Moderate Morphine Sulfate 4 mg 06/06/18 11:40 06/06/18 18:00 Morphine IV 4 mg Q4H PRN Administration Pain , Severe (7-10) Ondansetron HCl 4 mg 06/06/18 11:40 Zofran IV Q8H PRN Nausea And Vomiting Silver Sulfadiazine 1 applic 06/06/18 10:00 06/06/18 20:36 Thermazene 50 Gram TP Not Given DAILY MAX Temazepam 15 mg 06/06/18 00:31 Restoril PO QHS PRN Insomnia Warfarin Sodium 10 mg 06/06/18 17:00 06/06/18 18:15 Coumadin PO 10 mg DAILY@1700 MAX Administration
--- NOTE | 2018-06-07 10:02 | Progress Note ---
Assessment and Plan Assessment and plan: Septal pulmonary embolus. Patient is doing well following thrombolytic therapy for his pulmonary embolism. This is his second major pulmonary embolism. He will need to remain on anticoagulation lifelong. The patient will be brought to the cardiac catheterization lab for removal of his thrombolytics catheters, evaluation of his pulmonary arteries and placement of an IVC filter. Vascular surgery following. Hypertension. Continue current hypertensive medications. Acute kidney injury. Etiology likely secondary to vasomotor nephropathy/dehydration. Improved. Continue to follow BMP. History Interval history: No new issues overnight. Hospitalist Physical - Constitutional Vitals: Temp Pulse Resp BP Pulse Ox 98.6 F 79 23 115/75 91 06/07/18 08:00 06/07/18 09:50 06/07/18 09:50 06/07/18 09:50 06/07/18 09:50 General appearance: Present: no acute distress - EENT Eyes: Present: PERRL, EOM intact ENT: hearing intact, clear oral mucosa, dentition normal - Neck Neck: Present: supple, normal ROM - Respiratory Respiratory effort: normal Respiratory: bilateral: CTA - Cardiovascular Rhythm: regular Heart Sounds: Present: S1 & S2. Absent: gallop, rub - Extremities Extremities: no ischemia, No edema, Full ROM - Abdominal General gastrointestinal: soft, non-tender, non-distended, normal bowel sounds - Integumentary Integumentary: Present: clear, warm, dry - Neurologic Neurologic: CNII-XII intact, moves all extremities Results - Labs CBC & Chem 7: 06/07/18 04:56 06/07/18 04:56 Labs: Laboratory Last Values WBC 4.2 K/mm3 (4.5-11.0) L 06/07/18 04:56 RBC 4.54 M/mm3 (3.65-5.03) 06/07/18 04:56 Hgb 14.1 gm/dl (11.8-15.2) 06/07/18 04:56 Hct 43.0 % (35.5-45.6) 06/07/18 04:56 MCV 95 fl (84-94) H 06/07/18 04:56 MCH 31 pg (28-32) 06/07/18 04:56 MCHC 33 % (32-34) 06/07/18 04:56 RDW 14.7 % (13.2-15.2) 06/07/18 04:56 Plt Count 88 K/mm3 (140-440) L 06/07/18 04:56 Lymph % (Auto) 35.9 % (13.4-35.0) H 06/07/18 04:56 Parker % (Auto) 9.6 % (0.0-7.3) H 06/07/18 04:56 Eos % (Auto) 3.0 % (0.0-4.3) 06/07/18 04:56 Baso % (Auto) 0.8 % (0.0-1.8) 06/07/18 04:56 Lymph # 1.5 K/mm3 (1.2-5.4) 06/07/18 04:56 Parker # 0.4 K/mm3 (0.0-0.8) 06/07/18 04:56 Eos # 0.1 K/mm3 (0.0-0.4) 06/07/18 04:56 Baso # 0.0 K/mm3 (0.0-0.1) 06/07/18 04:56 Seg Neutrophils % 50.7 % (40.0-70.0) 06/07/18 04:56 Seg Neutrophils # 2.1 K/mm3 (1.8-7.7) 06/07/18 04:56 PT 14.9 Sec. (12.2-14.9) 06/07/18 04:56 INR 1.13 (0.87-1.13) 06/07/18 04:56 APTT 37.7 Sec. (24.2-36.6) H 06/06/18 09:59 Fibrinogen 375 mg/dl (211-480) 06/07/18 04:56 D-Dimer 4730.92 ng/mlDDU (0-234) H 06/05/18 21:14 Heparin Anti-Xa Level < 0.10 U.I./ml (0.3-0.7) L 06/07/18 04:56 Sodium 139 mmol/L (137-145) 06/07/18 04:56 Potassium 4.4 mmol/L (3.6-5.0) 06/07/18 04:56 Chloride 107.7 mmol/L (98-107) H 06/07/18 04:56 Carbon Dioxide 22 mmol/L (22-30) 06/07/18 04:56 Anion Gap 14 mmol/L 06/07/18 04:56 BUN 13 mg/dL (9-20) 06/07/18 04:56 Creatinine 1.1 mg/dL (0.8-1.5) 06/07/18 04:56 Estimated GFR > 60 ml/min 06/07/18 04:56 BUN/Creatinine Ratio 12 % 06/07/18 04:56 Glucose 106 mg/dL (75-100) H 06/07/18 04:56 Calcium 8.3 mg/dL (8.4-10.2) L 06/07/18 04:56 Phosphorus 3.70 mg/dL (2.5-4.5) 06/07/18 04:56 Magnesium 1.80 mg/dL (1.7-2.3) 06/07/18 04:56 Total Creatine Kinase 65 units/L (55-170) 06/06/18 11:00 CK-MB (CK-2) 2.0 ng/mL (0.0-4.0) 06/06/18 11:00 CK-MB (CK-2) Rel Index 3.0 (0-4) 06/06/18 11:00 Troponin T < 0.010 ng/mL (0.00-0.029) 06/06/18 11:00 NT-Pro-B Natriuret Pep 4306 pg/mL (0-900) H 06/05/18 21:14 PTH Intact 133.4 pg/mL (15-65) H 06/07/18 04:56 Blood Type B POSITIVE 06/06/18 10:52 Antibody Screen Negative 06/06/18 10:52
--- NOTE | 2018-06-07 12:17 | Progress Note ---
Assessment and Plan Acute Kidney Injury possibly prerenal, DENNY, possible underlying CKD, NSAIDs use, r/o obstruction: - improved - Renally dose meds - S/p CTA chest IV contrast on 06/05/18 - S/p EKOS placement with total of 0.9% NS infusion of 70 ml/hr - Avoid NSAIDs - C[place]ay Catheter: No (Condom Cath) Acute Bilateral Pulmonary Embolism: Vascular surgery consulted for massive pulmonary embolism with saddle embolus and right heart strain. S/p pharmacal mechanical thrombolysis with bilateral pulmonary artery EKOS placement, pulmonary angiogram on 06/06/18 Essential Hypertension: - Resume home meds - Adjust meds as needed Subjective Date of service: 06/07/18 Principal diagnosis: acute renal failure Interval history: comfortable, mild weakness Objective - Vital Signs Vital signs: Vital Signs - 12hr 06/07/18 06/07/18 06/07/18 00:20 00:30 00:40 Temperature Pulse Rate 77 78 76 Pulse Rate [ From Monitor] Pulse Rate [ Left Dorsalis Pedis] Pulse Rate [ Left Radial] Pulse Rate [ Right Dorsalis Pedis] Pulse Rate [ Right Radial] Respiratory 14 17 18 Rate Blood Pressure 105/70 102/66 105/70 O2 Sat by Pulse 90 90 90 Oximetry 06/07/18 06/07/18 06/07/18 00:50 01:00 01:10 Temperature Pulse Rate 78 75 77 Pulse Rate [ From Monitor] Pulse Rate [ Left Dorsalis Pedis] Pulse Rate [ Left Radial] Pulse Rate [ Right Dorsalis Pedis] Pulse Rate [ Right Radial] Respiratory 19 19 15 Rate Blood Pressure 91/65 97/66 102/66 O2 Sat by Pulse 88 91 90 Oximetry 06/07/18 06/07/18 06/07/18 01:20 01:30 01:40 Temperature Pulse Rate 77 76 75 Pulse Rate [ From Monitor] Pulse Rate [ Left Dorsalis Pedis] Pulse Rate [ Left Radial] Pulse Rate [ Right Dorsalis Pedis] Pulse Rate [ Right Radial] Respiratory 15 16 19 Rate Blood Pressure 106/67 96/65 96/65 O2 Sat by Pulse 90 91 89 Oximetry 06/07/18 06/07/18 06/07/18 01:50 02:00 02:10 Temperature Pulse Rate 77 76 76 Pulse Rate [ From Monitor] Pulse Rate [ Left Dorsalis Pedis] Pulse Rate [ Left Radial] Pulse Rate [ Right Dorsalis Pedis] Pulse Rate [ Right Radial] Respiratory 16 19 17 Rate Blood Pressure 92/67 96/67 92/67 O2 Sat by Pulse 95 90 91 Oximetry 06/07/18 06/07/18 06/07/18 02:20 02:30 02:40 Temperature Pulse Rate 76 75 80 Pulse Rate [ From Monitor] Pulse Rate [ Left Dorsalis Pedis] Pulse Rate [ Left Radial] Pulse Rate [ Right Dorsalis Pedis] Pulse Rate [ Right Radial] Respiratory 22 18 18 Rate Blood Pressure 106/71 105/73 105/73 O2 Sat by Pulse 92 91 91 Oximetry 06/07/18 06/07/18 06/07/18 02:50 03:00 03:10 Temperature Pulse Rate 75 74 77 Pulse Rate [ From Monitor] Pulse Rate [ Left Dorsalis Pedis] Pulse Rate [ Left Radial] Pulse Rate [ Right Dorsalis Pedis] Pulse Rate [ Right Radial] Respiratory 20 17 17 Rate Blood Pressure 104/72 108/70 108/70 O2 Sat by Pulse 91 90 90 Oximetry 06/07/18 06/07/18 06/07/18 03:20 03:30 03:40 Temperature Pulse Rate 74 73 68 Pulse Rate [ From Monitor] Pulse Rate [ Left Dorsalis Pedis] Pulse Rate [ Left Radial] Pulse Rate [ Right Dorsalis Pedis] Pulse Rate [ Right Radial] Respiratory 20 18 16 Rate Blood Pressure 103/67 103/70 103/70 O2 Sat by Pulse 91 92 91 Oximetry 06/07/18 06/07/18 06/07/18 03:41 03:42 03:45 Temperature 98.3 F Pulse Rate 75 Pulse Rate [ 75 From Monitor] Pulse Rate [ 75 75 Left Dorsalis Pedis] Pulse Rate [ 75 75 Left Radial] Pulse Rate [ 75 75 Right Dorsalis Pedis] Pulse Rate [ 75 75 Right Radial] Respiratory Rate Blood Pressure O2 Sat by Pulse 91 Oximetry 06/07/18 06/07/18 06/07/18 03:50 03:55 04:00 Temperature 98.3 F Pulse Rate 75 76 Pulse Rate [ From Monitor] Pulse Rate [ Left Dorsalis Pedis] Pulse Rate [ Left Radial] Pulse Rate [ Right Dorsalis Pedis] Pulse Rate [ Right Radial] Respiratory 16 16 Rate Blood Pressure 95/68 104/67 O2 Sat by Pulse 89 89 Oximetry 06/07/18 06/07/18 06/07/18 04:10 04:20 04:30 Temperature Pulse Rate 75 73 74 Pulse Rate [ From Monitor] Pulse Rate [ Left Dorsalis Pedis] Pulse Rate [ Left Radial] Pulse Rate [ Right Dorsalis Pedis] Pulse Rate [ Right Radial] Respiratory 17 17 20 Rate Blood Pressure 104/67 100/67 106/67 O2 Sat by Pulse 88 89 90 Oximetry 06/07/18 06/07/18 06/07/18 04:40 04:50 05:00 Temperature Pulse Rate 75 74 77 Pulse Rate [ From Monitor] Pulse Rate [ Left Dorsalis Pedis] Pulse Rate [ Left Radial] Pulse Rate [ Right Dorsalis Pedis] Pulse Rate [ Right Radial] Respiratory 22 21 22 Rate Blood Pressure 106/67 100/71 100/68 O2 Sat by Pulse 87 88 89 Oximetry 06/07/18 06/07/18 06/07/18 05:10 05:20 05:30 Temperature Pulse Rate 74 72 76 Pulse Rate [ From Monitor] Pulse Rate [ Left Dorsalis Pedis] Pulse Rate [ Left Radial] Pulse Rate [ Right Dorsalis Pedis] Pulse Rate [ Right Radial] Respiratory 19 21 20 Rate Blood Pressure 100/68 101/70 98/65 O2 Sat by Pulse 85 88 89 Oximetry 06/07/18 06/07/18 06/07/18 05:40 05:50 06:00 Temperature Pulse Rate 84 75 74 Pulse Rate [ From Monitor] Pulse Rate [ Left Dorsalis Pedis] Pulse Rate [ Left Radial] Pulse Rate [ Right Dorsalis Pedis] Pulse Rate [ Right Radial] Respiratory 23 21 19 Rate Blood Pressure 98/65 102/69 102/68 O2 Sat by Pulse 90 88 90 Oximetry 06/07/18 06/07/18 06/07/18 06:10 06:20 06:30 Temperature Pulse Rate 75 75 74 Pulse Rate [ From Monitor] Pulse Rate [ Left Dorsalis Pedis] Pulse Rate [ Left Radial] Pulse Rate [ Right Dorsalis Pedis] Pulse Rate [ Right Radial] Respiratory 17 17 20 Rate Blood Pressure 102/68 100/69 111/71 O2 Sat by Pulse 90 90 91 Oximetry 06/07/18 06/07/18 06/07/18 06:40 06:50 07:00 Temperature Pulse Rate 78 90 77 Pulse Rate [ From Monitor] Pulse Rate [ Left Dorsalis Pedis] Pulse Rate [ Left Radial] Pulse Rate [ Right Dorsalis Pedis] Pulse Rate [ Right Radial] Respiratory 21 20 24 Rate Blood Pressure 111/71 110/75 115/75 O2 Sat by Pulse 89 89 89 Oximetry 06/07/18 06/07/18 06/07/18 07:10 07:20 07:30 Temperature Pulse Rate 76 80 76 Pulse Rate [ From Monitor] Pulse Rate [ Left Dorsalis Pedis] Pulse Rate [ Left Radial] Pulse Rate [ Right Dorsalis Pedis] Pulse Rate [ Right Radial] Respiratory 20 16 22 Rate Blood Pressure 115/75 115/75 108/71 O2 Sat by Pulse 91 95 91 Oximetry 06/07/18 06/07/18 06/07/18 07:40 07:50 08:00 Temperature 98.6 F Pulse Rate 79 76 79 Pulse Rate [ 75 From Monitor] Pulse Rate [ 75 Left Dorsalis Pedis] Pulse Rate [ 75 Left Radial] Pulse Rate [ 75 Right Dorsalis Pedis] Pulse Rate [ 75 Right Radial] Respiratory 26 H 20 13 Rate Blood Pressure 108/71 104/67 104/67 O2 Sat by Pulse 91 91 92 Oximetry 06/07/18 06/07/18 06/07/18 08:10 08:20 08:30 Temperature Pulse Rate 78 79 78 Pulse Rate [ From Monitor] Pulse Rate [ Left Dorsalis Pedis] Pulse Rate [ Left Radial] Pulse Rate [ Right Dorsalis Pedis] Pulse Rate [ Right Radial] Respiratory 23 22 24 Rate Blood Pressure 104/67 104/67 117/75 O2 Sat by Pulse 93 95 94 Oximetry 06/07/18 06/07/18 06/07/18 08:40 08:50 09:00 Temperature Pulse Rate 79 79 80 Pulse Rate [ From Monitor] Pulse Rate [ Left Dorsalis Pedis] Pulse Rate [ Left Radial] Pulse Rate [ Right Dorsalis Pedis] Pulse Rate [ Right Radial] Respiratory 12 22 16 Rate Blood Pressure 117/75 115/77 123/78 O2 Sat by Pulse 89 91 92 Oximetry 06/07/18 06/07/18 06/07/18 09:04 09:10 09:20 Temperature Pulse Rate 83 81 Pulse Rate [ From Monitor] Pulse Rate [ Left Dorsalis Pedis] Pulse Rate [ Left Radial] Pulse Rate [ Right Dorsalis Pedis] Pulse Rate [ Right Radial] Respiratory 17 11 L Rate Blood Pressure 123/78 109/71 O2 Sat by Pulse 93 92 92 Oximetry 06/07/18 06/07/1806/07/19 09:30 09:40 09:50 Temperature Pulse Rate 77 82 79 Pulse Rate [ From Monitor] Pulse Rate [ Left Dorsalis Pedis] Pulse Rate [ Left Radial] Pulse Rate [ Right Dorsalis Pedis] Pulse Rate [ Right Radial] Respiratory 26 H 21 23 Rate Blood Pressure 112/72 112/72 115/75 O2 Sat by Pulse 93 90 91 Oximetry - General Appearance General appearance: well-developed, well-nourished, appears stated age EENT: ATNC, PERRL, mucous membranes moist Neck: no JVD, no carotid bruit Respiratory: Present: Clear to Ascultation. Absent: Rales, Ronchi Cardiology: regular, S1S2 Gastrointestinal: normoactive bowel sounds, no hypoactive bowel sounds, no absent bowel sounds Integumentary: no rash, warm and dry Neurologic: no focal deficit, no asterixis, alert and oriented x3 Musculoskeletal: other (trave pitting edema in BLE) Psychiatric: mood/affect appropriate, cooperative - Lab 06/07/18 04:56 06/07/18 04:56 Most recent lab results Calcium 8.3 mg/dL (8.4-10.2) L 06/07/18 04:56 Phosphorus 3.70 mg/dL (2.5-4.5) 06/07/18 04:56 Magnesium 1.80 mg/dL (1.7-2.3) 06/07/18 04:56 Medications & Allergies - Medications Allergies/Adverse Reactions: Allergies No Known Allergies Allergy (Verified 08/23/14 08:28) Home Medications: Home Medications Medication Instructions Recorded Confirmed Last Taken Type Allopurinol [Zyloprim] 300 mg PO BID 06/05/18 06/05/18 06/05/18 History Aspirin [Adult Low Dose Aspirin EC] 81 mg PO DAILY 06/05/18 06/05/18 06/05/18 History Brimonidine 0.15% [Alphagan P 1 drops OP Q8H 06/05/18 06/05/18 Unknown History 0.15%] Dorzolamide HCl/Timolol Maleat 10 ml OP BID 06/05/18 06/05/18 06/05/18 History [Dorzolamide-Timolol Eye Drops] Furosemide [Lasix TAB] 40 mg PO DAILY 06/05/18 06/05/18 06/05/18 History Gabapentin [Neurontin] 300 mg PO BID 06/05/18 06/05/18 06/05/18 History Ibuprofen [Ibu] 800 mg PO Q8H PRN 06/05/18 06/05/18 Unknown History Latanoprost/Pf [Latanoprost 0.005% 7.5 ml OP QHS 06/05/18 06/05/18 06/04/18 History Eye Drop] Lisinopril 40 mg PO DAILY 06/05/18 06/05/18 06/05/18 History Rosuvastatin (Nf) [Crestor] 20 mg PO DAILY 06/05/18 06/05/18 06/05/18 History Silver Sulfadiazine [Silvadene] 50 gm TP DAILY 06/05/18 06/05/18 06/05/18 History amLODIPine [Norvasc] 10 mg PO DAILY 06/05/18 06/05/18 06/05/18 History methOCARBAMOL [Robaxin TAB] 500 mg PO BID 06/05/18 06/05/18 06/05/18 History Active Medications: Generic Name Dose Route Start Last Admin Trade Name Freq PRN Reason Stop Dose Admin Acetaminophen 650 mg 06/06/18 00:28 Tylenol PO Q4H PRN Fever >101 Acetaminophen/Hydrocodone Bitart 2 each 06/06/18 11:40 06/06/18 22:20 [place] 5/325 PO 2 each Q6H PRN Administration Pain, Moderate (4-6) Albuterol 2.5 mg 06/06/18 00:32 Proventil IH Q6HRT PRN Shortness Of Breath Allopurinol 300 mg 06/06/18 10:00 06/06/18 21:57 Zyloprim PO 300 mg BID MAX Administration Amlodipine Besylate 10 mg 06/06/18 10:00 06/06/18 13:00 Norvasc PO 10 mg DAILY MAX Administration Atorvastatin Calcium 40 mg 06/06/18 22:00 06/06/18 21:57 Lipitor PO 40 mg QHS MAX Administration Famotidine 20 mg 06/06/18 22:00 06/06/18 21:58 Pepcid PO 20 mg BID MAX Administration Gabapentin 300 mg 06/06/18 10:00 06/06/18 21:58 Neurontin PO 300 mg BID MAX Administration Guaifenesin 200 mg 06/06/18 00:27 06/07/18 04:35 Robitussin PO 200 mg Q4H PRN Administration Cough Heparin Sodium/Sodium Chloride 25,000 unit in 500 mls @ 30 mls/hr 06/05/18 23:00 06/06/18 12:30 Heparin/ 0.45% Nacl-25,000 Unit/500 Ml IV 1,500 units/hr TITR MAX 30 mls/hr Administration Protocol 1,500 UNITS/HR Alteplase, Recombinant 10 mg/ 250 mls @ 10 mls/hr 06/06/18 10:00 06/06/18 12:30 Sodium Chloride EKOSDLUMEN 5 mls DIRECT MAX Administration Alteplase, Recombinant 10 mg/ 250 mls @ 10 mls/hr 06/06/18 10:00 Sodium Chloride IV DIRECT MAX Sodium Chloride 1,000 mls @ 30 mls/hr 06/06/18 10:00 Nacl 0.9% 1000 Ml IV DIRECT MAX Sodium Chloride 1,000 mls @ 30 mls/hr 06/06/18 10:00 Nacl 0.9% 1000 Ml SHEATH DIRECT MAX Sodium Chloride 1,000 mls @ 35 mls/hr 06/06/18 10:00 06/06/18 11:14 Nacl 0.9% 1000 Ml EKOSCLUMEN 15 mls DIRECT MAX Administration Sodium Chloride 1,000 mls @ 30 mls/hr 06/06/18 10:00 Nacl 0.9% 1000 Ml SHEATH DIRECT MAX Sodium Chloride 1,000 mls @ 35 mls/hr 06/06/18 10:00 06/06/18 11:15 Nacl 0.9% 1000 Ml EKOSCLUMEN 10 mls DIRECT MAX Administration Latanoprost 1 drops 06/06/18 22:00 06/06/18 22:23 Latanoprost 0.005% OU 1 drops QHS MAX Administration Lisinopril 40 mg 06/06/18 10:00 06/06/18 13:00 Zestril PO 40 mg DAILY MAX Administration Methocarbamol 500 mg 06/06/18 10:00 06/06/18 22:20 Robaxin PO 500 mg BID MAX Administration Miscellaneous Medication 1 drop 06/07/18 14:00 Brimonidine 0.2% OU TID MAX Morphine Sulfate 2 mg 06/06/18 13:03 Morphine IV Q4H PRN Pain , Moderate Morphine Sulfate 4 mg 06/06/18 11:40 06/06/18 18:00 Morphine IV 4 mg Q4H PRN Administration Pain , Severe (7-10) Ondansetron HCl 4 mg 06/06/18 11:40 Zofran IV Q8H PRN Nausea And Vomiting Silver Sulfadiazine 1 applic 06/06/18 10:00 06/06/18 20:36 Thermazene 50 Gram TP Not Given DAILY [facility] Temazepam 15 mg 06/06/18 00:31 Restoril PO QHS PRN Insomnia Warfarin Sodium 10 mg 06/06/18 17:00 06/06/18 18:15 Coumadin PO 10 mg DAILY@1700 [facility] Administration
[2018-06-07] MEDS ORDERED: VERSED ONE (12:42)
[2018-06-07] MEDS ORDERED: SUBLIMAZE ONE (12:43)
[2018-06-07] MEDS ORDERED: XYLOCAINE 2% INFILTRATI ONE (13:00)
[2018-06-07] MEDS ORDERED: HEPARIN/NS 5000 UNIT/500ML(CATH LAB) 1,000 ML IR ONE (13:00)
[2018-06-07] MEDS ORDERED: HEPARIN 10,000 UNITS/10 ML ONE (13:00)
[2018-06-07] MEDS ORDERED: NACL 0.9% 500 ML 500 ML ONE (13:00)
[2018-06-07] MEDS: XYLOCAINE 2% INFILTRATI ONE (13:11)
[2018-06-07] MEDS: PEPCID PO SCH ×2 (13:15→22:15)
[2018-06-07] MEDS: ZYLOPRIM PO SCH ×2 (13:15→22:15)
[2018-06-07] MEDS: NORVASC PO SCH (13:15)
--- NOTE | 2018-06-07 13:37 | Operative Report ---
Operative Report Operative Report: Exam: Removal of thrombolytics catheters, bilateral pulmonary angiogram, IVC filter placement Clinical indication: Patient with a history of sub-massive pulmonary embolism with right heart strain, status post thrombolytics catheter therapy. Date: 06/07/2018 Procedure: Following an explanation of the risks, benefits and alternatives; written informed consent was obtained. The patient was brought to the angiographic suite. His right groin and indwelling catheters were prepped and draped in the usual sterile fashion. 1% lidocaine was used for anesthesia. Initial fluoroscopic images stem started appropriate positioning of the indwelling thrombolytics catheters. The infusion wires were removed. A 0.035 guidewire was advanced through the left catheter in the left catheter removed. A 4 [place] vertebral catheter was advanced over the guidewire. Angiography was performed in the lower lobe segmental pulmonary artery as well as the left main pulmonary artery. No significant thrombus is again applied. The thrombolytics catheter was removed. The 0.035 guidewire was advanced through the right catheter. The right catheter was removed and a vertebral catheter advanced over the guidewire. The guidewire was removed. Angiography was performed in the right main pulmonary artery. This demonstrates no significant central thrombus. The catheter was removed. Contrast was then injected through the sheath and the groin to opacify the IVC. The level of lowest renal veins was identified at the inferior endplate of L1. No intraluminal thrombus is identified. A 0.035 guidewire was advanced through the sheath and the sheath removed. An IVC filter introducer sheath was then advanced over the guidewire under fluoroscopy. The guidewire and trocar were removed and a [employer] [place] IVC filter was advanced through the sheath and deployed. Post appointment imaging demonstrated satisfactory positioning with no significant tilt. Both sheaths were then removed and hemostasis achieved using manual compression. A compression dressing was then applied. The patient tolerated the procedure well. There were no immediate postprocedure complications. Conscious sedation was performed under the guidance of radiologic nursing. Continuous cardiopulmonary monitoring was utilized. Impression: 1) Removal of bilateral pulmonary thrombolytics catheters. 2) Bilateral pulmonary angiography demonstrating no large central thrombus. 3) IVC filter placement.
[2018-06-07] MEDS: ROBAXIN PO SCH ×2 (15:59→22:14)
[2018-06-07] MEDS: ZESTRIL PO SCH (15:59)
[2018-06-07] MEDS: NEURONTIN PO SCH ×2 (16:01→22:15)
[2018-06-07] MEDS: COUMADIN PO SCH (16:17)
--- NOTE | 2018-06-07 16:27 | Progress Note ---
Assessment and Plan Acute hypoxemic respiratory failure. Acute bilateral pulmonary embolus with saddle embolism. Cardiomyopathy with evidence of right heart strain. Obesity. Lung mass/nodule. History of gout. Hypertension - continue IV heparin - continue coumadin for target INR 2.0 to 3.0 - continue supplemental oxygen and wean to keep O2 Sat's > 90% - get CXR re: hypoxemia - lung Mass likely an area of infarction vs atelectasis; will repeat CT and follow outpatient - aspiration precautions - PT/OT - mobility protocol for pressure ulcer prophylaxis - continue G.I. prophylaxis - prn albuterol treatments - re-introduce home meds including glaucoma eye drops - continue other care per attending / other consultants .... transfer to medical floor [place] Subjective Date of service: 06/07/18 Principal diagnosis: Acute hypoxemic Resp failure; Acute tor. PE; CMOP; Obesity; Lung mass; ERIC Interval history: Patient is seen today for: Acute hypoxemic respiratory failure; Acute bilateral pulmonary embolus with saddle embolism; Cardiomyopathy with evidence of right heart strain; Obesity; Lung mass/nodule. Seen and examined at bedside; 24hour events reviewed; nursing and respiratory care staff consulted; no adverse overnight events reported to me; remains on supplemental oxygen but now up to 4L NC; denies acute chest pains; no hemoptysis; no emesis or overt aspiration; sisters visiting; EKOS catheters removed Objective Vital Signs - 12hr 06/07/18 06/07/18 06/07/18 04:30 04:40 04:50 Temperature Pulse Rate 74 75 74 Pulse Rate [ From Monitor] Pulse Rate [ Left Dorsalis Pedis] Pulse Rate [ Left Radial] Pulse Rate [ Right Dorsalis Pedis] Pulse Rate [ Right Radial] Respiratory 20 22 21 Rate Blood Pressure 106/67 106/67 100/71 O2 Sat by Pulse 90 87 88 Oximetry 06/07/18 06/07/18 06/07/18 05:00 05:10 05:20 Temperature Pulse Rate 77 74 72 Pulse Rate [ From Monitor] Pulse Rate [ Left Dorsalis Pedis] Pulse Rate [ Left Radial] Pulse Rate [ Right Dorsalis Pedis] Pulse Rate [ Right Radial] Respiratory 22 19 21 Rate Blood Pressure 100/68 100/68 101/70 O2 Sat by Pulse 89 85 88 Oximetry 06/07/18 06/07/18 06/07/18 05:30 05:40 05:50 Temperature Pulse Rate 76 84 75 Pulse Rate [ From Monitor] Pulse Rate [ Left Dorsalis Pedis] Pulse Rate [ Left Radial] Pulse Rate [ Right Dorsalis Pedis] Pulse Rate [ Right Radial] Respiratory 20 23 21 Rate Blood Pressure 98/65 98/65 102/69 O2 Sat by Pulse 89 90 88 Oximetry 06/07/18 06/07/18 06/07/18 06:00 06:10 06:20 Temperature Pulse Rate 74 75 75 Pulse Rate [ From Monitor] Pulse Rate [ Left Dorsalis Pedis] Pulse Rate [ Left Radial] Pulse Rate [ Right Dorsalis Pedis] Pulse Rate [ Right Radial] Respiratory 19 17 17 Rate Blood Pressure 102/68 102/68 100/69 O2 Sat by Pulse 90 90 90 Oximetry 06/07/18 06/07/18 06/07/18 06:30 06:40 06:50 Temperature Pulse Rate 74 78 90 Pulse Rate [ From Monitor] Pulse Rate [ Left Dorsalis Pedis] Pulse Rate [ Left Radial] Pulse Rate [ Right Dorsalis Pedis] Pulse Rate [ Right Radial] Respiratory 20 21 20 Rate Blood Pressure 111/71 111/71 110/75 O2 Sat by Pulse 91 89 89 Oximetry 06/07/18 06/07/18 06/07/18 07:00 07:10 07:20 Temperature Pulse Rate 77 76 80 Pulse Rate [ From Monitor] Pulse Rate [ Left Dorsalis Pedis] Pulse Rate [ Left Radial] Pulse Rate [ Right Dorsalis Pedis] Pulse Rate [ Right Radial] Respiratory 24 20 16 Rate Blood Pressure 115/75 115/75 115/75 O2 Sat by Pulse 89 91 95 Oximetry 06/07/18 06/07/18 06/07/18 07:30 07:40 07:50 Temperature Pulse Rate 76 79 76 Pulse Rate [ From Monitor] Pulse Rate [ Left Dorsalis Pedis] Pulse Rate [ Left Radial] Pulse Rate [ Right Dorsalis Pedis] Pulse Rate [ Right Radial] Respiratory 22 26 H 20 Rate Blood Pressure 108/71 108/71 104/67 O2 Sat by Pulse 91 91 91 Oximetry 06/07/18 06/07/18 06/07/18 08:00 08:10 08:20 Temperature 98.6 F Pulse Rate 79 78 79 Pulse Rate [ 75 From Monitor] Pulse Rate [ 75 Left Dorsalis Pedis] Pulse Rate [ 75 Left Radial] Pulse Rate [ 75 Right Dorsalis Pedis] Pulse Rate [ 75 Right Radial] Respiratory 13 23 22 Rate Blood Pressure 104/67 104/67 104/67 O2 Sat by Pulse 92 93 95 Oximetry 06/07/18 06/07/18 06/07/18 08:30 08:40 08:50 Temperature Pulse Rate 78 79 79 Pulse Rate [ From Monitor] Pulse Rate [ Left Dorsalis Pedis] Pulse Rate [ Left Radial] Pulse Rate [ Right Dorsalis Pedis] Pulse Rate [ Right Radial] Respiratory 24 12 22 Rate Blood Pressure 117/75 117/75 115/77 O2 Sat by Pulse 94 89 91 Oximetry 06/07/18 06/07/18 06/07/18 09:00 09:04 09:10 Temperature Pulse Rate 80 83 Pulse Rate [ From Monitor] Pulse Rate [ Left Dorsalis Pedis] Pulse Rate [ Left Radial] Pulse Rate [ Right Dorsalis Pedis] Pulse Rate [ Right Radial] Respiratory 16 17 Rate Blood Pressure 123/78 123/78 O2 Sat by Pulse 92 93 92 Oximetry 06/07/18 06/07/18 06/07/18 09:20 09:30 09:40 Temperature Pulse Rate 81 77 82 Pulse Rate [ From Monitor] Pulse Rate [ Left Dorsalis Pedis] Pulse Rate [ Left Radial] Pulse Rate [ Right Dorsalis Pedis] Pulse Rate [ Right Radial] Respiratory 11 L 26 H 21 Rate Blood Pressure 109/71 112/72 112/72 O2 Sat by Pulse 92 93 90 Oximetry 06/07/18 06/07/18 06/07/18 09:50 10:00 10:10 Temperature Pulse Rate 79 79 85 Pulse Rate [ From Monitor] Pulse Rate [ Left Dorsalis Pedis] Pulse Rate [ Left Radial] Pulse Rate [ Right Dorsalis Pedis] Pulse Rate [ Right Radial] Respiratory 23 14 22 Rate Blood Pressure 115/75 110/72 110/72 O2 Sat by Pulse 91 95 93 Oximetry 06/07/18 06/07/18 06/07/18 10:20 10:30 10:40 Temperature Pulse Rate 83 83 80 Pulse Rate [ From Monitor] Pulse Rate [ Left Dorsalis Pedis] Pulse Rate [ Left Radial] Pulse Rate [ Right Dorsalis Pedis] Pulse Rate [ Right Radial] Respiratory 20 23 11 L Rate Blood Pressure 105/71 114/74 114/74 O2 Sat by Pulse 92 91 91 Oximetry 06/07/18 06/07/18 06/07/18 10:50 11:00 11:10 Temperature Pulse Rate 87 82 84 Pulse Rate [ From Monitor] Pulse Rate [ Left Dorsalis Pedis] Pulse Rate [ Left Radial] Pulse Rate [ Right Dorsalis Pedis] Pulse Rate [ Right Radial] Respiratory 11 L 12 16 Rate Blood Pressure 109/73 114/79 114/79 O2 Sat by Pulse 90 95 91 Oximetry 06/07/18 06/07/18 06/07/18 11:20 11:30 11:40 Temperature Pulse Rate 84 90 85 Pulse Rate [ From Monitor] Pulse Rate [ Left Dorsalis Pedis] Pulse Rate [ Left Radial] Pulse Rate [ Right Dorsalis Pedis] Pulse Rate [ Right Radial] Respiratory 12 12 15 Rate Blood Pressure 125/76 106/72 106/72 O2 Sat by Pulse 93 93 95 Oximetry 06/07/18 06/07/18 06/07/18 11:50 12:00 12:10 Temperature 98.2 F Pulse Rate 86 81 84 Pulse Rate [ From Monitor] Pulse Rate [ Left Dorsalis Pedis] Pulse Rate [ Left Radial] Pulse Rate [ Right Dorsalis Pedis] Pulse Rate [ Right Radial] Respiratory 20 15 17 Rate Blood Pressure 118/79 110/73 110/73 O2 Sat by Pulse 93 92 92 Oximetry 06/07/18 06/07/18 06/07/18 12:20 13:56 14:00 Temperature Pulse Rate 89 76 81 Pulse Rate [ From Monitor] Pulse Rate [ Left Dorsalis Pedis] Pulse Rate [ Left Radial] Pulse Rate [ Right Dorsalis Pedis] Pulse Rate [ Right Radial] Respiratory 17 14 Rate Blood Pressure 112/76 110/73 129/88 O2 Sat by Pulse 92 90 92 Oximetry 06/07/18 06/07/18 06/07/18 14:10 14:20 14:30 Temperature Pulse Rate 71 77 81 Pulse Rate [ From Monitor] Pulse Rate [ Left Dorsalis Pedis] Pulse Rate [ Left Radial] Pulse Rate [ Right Dorsalis Pedis] Pulse Rate [ Right Radial] Respiratory 19 12 19 Rate Blood Pressure 129/88 112/76 112/76 O2 Sat by Pulse 92 89 91 Oximetry 06/07/18 06/07/18 06/07/18 14:40 14:50 15:00 Temperature Pulse Rate 91 H 86 89 Pulse Rate [ From Monitor] Pulse Rate [ Left Dorsalis Pedis] Pulse Rate [ Left Radial] Pulse Rate [ Right Dorsalis Pedis] Pulse Rate [ Right Radial] Respiratory 13 11 L 21 Rate Blood Pressure 123/74 123/74 112/71 O2 Sat by Pulse 90 90 91 Oximetry 06/07/18 06/07/18 06/07/18 15:10 15:20 15:30 Temperature Pulse Rate 88 90 92 H Pulse Rate [ From Monitor] Pulse Rate [ Left Dorsalis Pedis] Pulse Rate [ Left Radial] Pulse Rate [ Right Dorsalis Pedis] Pulse Rate [ Right Radial] Respiratory 13 15 22 Rate Blood Pressure 112/71 115/59 109/58 O2 Sat by Pulse 89 91 88 Oximetry 06/07/18 15:59 Temperature Pulse Rate 89 Pulse Rate [ From Monitor] Pulse Rate [ Left Dorsalis Pedis] Pulse Rate [ Left Radial] Pulse Rate [ Right Dorsalis Pedis] Pulse Rate [ Right Radial] Respiratory Rate Blood Pressure O2 Sat by Pulse Oximetry Constitutional: no acute distress, alert, other (elderly obese AAM, normocephalic and atraumatic with mildly increased resp effort) Eyes: non-icteric ENT: oropharynx moist, other (Mallampati 3) Neck: supple, no lymphadenopathy, no JVD, other (large neck circumference) Effort: mildly labored Ascultation: Bilateral: diminished breath sounds, rhonchi Percussion: Bilateral: not dull Cardiovascular: regular rate and rhythm Gastrointestinal: normoactive bowel sounds, soft, non-tender, non-distended Integumentary: normal Extremities: no cyanosis, pulses normal, no ischemia or petechiae, edema Neurologic: normal mental status, non-focal exam, pupils equal and round, motor strength normal and, other (weak) Psychiatric: mood appropriate, affect normal CBC and BMP: 06/08/18 04:45 06/08/18 09:59 ABG, PT/INR, D-dimer: PT/INR, D-dimer PT 14.9 Sec. (12.2-14.9) 06/07/18 04:56 INR 1.13 (0.87-1.13) 06/07/18 04:56 D-Dimer 4730.92 ng/mlDDU (0-234) H 06/05/18 21:14 Abnormal lab findings: Abnormal Labs 06/05/18 06/05/18 06/05/18 20:15 20:15 21:14 WBC RBC Hgb 15.6 H Hct 47.0 H MCV Plt Count 125 L Lymph % (Auto) [place] % (Auto) 9.8 H PT INR APTT D-Dimer 4730.92 H Heparin Anti-Xa Level Chloride Carbon Dioxide 18 L Creatinine 1.7 H Glucose 149 H Calcium NT-Pro-B Natriuret Pep PTH Intact 06/05/18 06/05/18 06/05/18 21:14 22:46 22:46 WBC RBC Hgb Hct MCV Plt Count 102 L Lymph % (Auto) [place] % (Auto) PT 16.1 H INR 1.25 H APTT D-Dimer Heparin Anti-Xa Level Chloride Carbon Dioxide Creatinine Glucose Calcium NT-Pro-B Natriuret Pep 4306 H PTH Intact 06/06/18 06/06/18 06/06/18 06:20 06:20 09:59 WBC RBC 5.27 H Hgb 16.3 H Hct 49.8 H D MCV 95 H Plt Count 85 L Lymph % (Auto) [place] % (Auto) PT 15.8 H INR 1.22 H APTT D-Dimer Heparin Anti-Xa Level 1.10 H Chloride 107.4 H Carbon Dioxide 20 L Creatinine Glucose 113 H Calcium 8.2 L NT-Pro-B Natriuret Pep PTH Intact 06/06/18 06/06/18 06/06/18 09:59 09:59 13:35 WBC RBC Hgb Hct MCV Plt Count Lymph % (Auto) [place] % (Auto) PT 15.0 H INR 1.14 H APTT 37.7 H D-Dimer Heparin Anti-Xa Level 1.45 H Chloride Carbon Dioxide Creatinine Glucose 138 H Calcium 8.3 L NT-Pro-B Natriuret Pep PTH Intact 06/06/18 06/06/18 06/06/18 13:35 18:02 18:02 WBC RBC Hgb Hct 45.9 H MCV Plt Count 103 L Lymph % (Auto) [place] % (Auto) 9.1 H PT INR APTT D-Dimer Heparin Anti-Xa Level 1.32 H Chloride Carbon Dioxide 21 L Creatinine Glucose 113 H Calcium NT-Pro-B Natriuret Pep PTH Intact 06/06/18 06/06/18 06/07/18 22:46 22:46 04:56 WBC 4.2 L RBC Hgb Hct MCV 95 H Plt Count 110 L 88 L Lymph % (Auto) 35.4 H 35.9 H [place] % (Auto) 9.9 H 9.6 H PT INR APTT D-Dimer Heparin Anti-Xa Level < 0.10 L Chloride Carbon Dioxide Creatinine Glucose Calcium NT-Pro-B Natriuret Pep PTH Intact 06/07/18 06/07/18 06/07/18 04:56 04:56 04:56 WBC RBC Hgb Hct MCV Plt Count Lymph % (Auto) [place] % (Auto) PT INR APTT D-Dimer Heparin Anti-Xa Level < 0.10 L Chloride 107.7 H Carbon Dioxide Creatinine Glucose 106 H Calcium 8.3 L NT-Pro-B Natriuret Pep PTH Intact 133.4 H Chest x-ray: image reviewed Allied health notes reviewed: nursing
--- NOTE | 2018-06-07 16:45 | XRay Report ---
FINAL REPORT EXAM: XR CHEST 1V AP HISTORY: low o2 sat and counghing TECHNIQUE: Frontal portable view of the chest Comparison: CT angiogram chest dated June 05, 2018 and chest x-ray dated June 05, 2018 FINDINGS: There is no definite evidence of focal infiltrate and no evidence of pneumothorax or pleural fluid co llection. The pulmonary consolidation in the left upper lobe demonstrated on the recent chest CT is not clearly demonstrated with plain film imaging. The cardiac silhouette is normal size. The thoracic aorta is mildly tortuous. The bony structures are unremarkable. IMPRESSION: 1. No plain film evidence of an acute pulmonary process. The pulmonary consolidation demonstrated on the previous chest CT is not clearly demonstrated with pl ain film imaging. Follow-up with CT imaging is recommended to evaluate for the static or dynamic natu re of this finding.
[2018-06-07] MEDS: HEPARIN/ 0.45% NACL-25,000 UNIT/500 ML 25,000 UNIT/500 ML BAG IV SCH (19:00)
--- NOTE | 2018-06-07 20:04 | Vascular Lab Report ---
FINAL REPORT EXAM: VL VENOUS DUPLEX LE BILAT HISTORY: PE pulmonary emboli demonstrated on CT chest dated June 05, 2018. TECHNIQUE: Grayscale, color flow and Doppler waveform imaging of the deep venous structures of the l ower extremities was performed. Comparison: None FINDINGS: There is demonstration of normal compression and normal phasic flow in the deep venous structures of the right lower extremity from the common femoral vein to the posterior tibial vein. There is normal compression and normal phasic flow in the left common femoral vein. There is incomplete compression of the left superficial femoral vein, popliteal and posterior tibial veins. There is phasic flow in the proximal and mid superficial femoral with lack of phasic flow in the dist al femoral and popliteal veins. Flow is demonstrated in the posterior tibial and peroneal veins. IMPRESSION: 1. Evidence of nonocclusive deep venous thrombosis in the left lower extremity in the left superficia l femoral vein, popliteal and posterior tibial veins. 2. No ultrasound evidence of deep venous thrombosis right lower extremity.
[2018-06-07] MEDS: BRIMONIDINE 0.2% OU SCH (20:49)
--- NOTE | 2018-06-07 21:57 | Ultrasound Report ---
FINAL REPORT EXAM: US RENAL BILAT HISTORY: ERIC TECHNIQUE: Grayscale and color-flow imaging of the kidneys and urinary bladder was performed. Comparison: CT angiogram chest the dated June 05, 2018 FINDINGS: The right kidney measures 12 centimeters x 4.8 centimeters x 4.7 centimeters with a cortical thicknes s measurement of 1.6 centimeters. The left kidney measures 14.4 centimeters x 7.9 centimeters x 4.9 centimeters with a cortical thickne ss measurement of 2.5 millimeters. There is demonstration of a left renal cyst that measures approximately 2.9 centimeters x 4.5 centime ters x 5.7 centimeters in size. This was also demonstrated on the recent CT. There is no demonstration of hydronephrosis, renal calculi or solid mass of either kidney. The urinary bladder is moderately distended and unremarkable in appearance. IMPRESSION: 1. Left renal cyst. 2. Otherwise unremarkable study.
[2018-06-07] MEDS: LATANOPROST 0.005% OU SCH (22:16)
[2018-06-08 05:42] LABS: Basophils % (Auto) 0.5 % (0.0-1.8); Eosinophils # (Auto) 0.2 K/mm3 (0.0-0.4); Eosinophils % (Auto) 4.4 % (0.0-4.3); Hematocrit 41.2 % (35.5-45.6); Hemoglobin 13.4 gm/dl (11.8-15.2); Lymphocytes # (Auto) 1.5 K/mm3 (1.2-5.4); Mean Corpuscular HGB Conc 33 % (32-34); Mean Corpuscular Volume 94 fl (84-94); Monocytes # (Auto) 0.5 K/mm3 (0.0-0.8); Monocytes % (Auto) 8.7 % (0.0-7.3); Red Blood Count 4.36 M/mm3 (3.65-5.03); Red Cell Distribution Width 14.5 % (13.2-15.2)
[2018-06-08 05:50] LABS: Platelet Count 91 K/mm3 (140-440)
[2018-06-08 05:52] LABS: INR 1.37 (0.87-1.13)
[2018-06-08] MEDS: THERMAZENE 50 GRAM TP SCH ×2 (07:37→13:57)
[2018-06-08] MEDS: BRIMONIDINE 0.2% OU SCH ×4 (07:38→21:42)
--- NOTE | 2018-06-08 09:08 | Progress Note ---
Assessment and Plan Assessment and plan: Septal pulmonary embolus. Patient is doing well following thrombolytic therapy for his pulmonary embolism. This is his second major pulmonary embolism. He will need to remain on anticoagulation lifelong. Vascular surgery following. s/p removal of thrombolytics catheters, bilateral pulmonary angiog talon, IVC filter placement yesterday 06/07 Hypertension. Continue current hypertensive medications. Acute kidney injury. Etiology likely secondary to vasomotor nephropathy/dehydration. Improved. Continue to follow BMP. Patient improved, likely transfer to [facility]. History Interval history: Feels better, Less shortness of breath Hospitalist Physical - Physical exam Narrative exam: GEN: Not in acute distress, lying in bed, Obese HEENT: Normocephalic, atraumatic, Neck: supple, No JVD Lungs: Clear to auscultation bilaterally, no wheeze Heart:S1 and S2 regular, no murmurs, rubs or gallop, Abd:soft, non tender, non distended, normal bowel sounds Ext: No edema, no clubbing or cyanosis Neuro: Awake,alert, oriented x 3, No focal signs Psych:Normal mood - Constitutional Vitals: Temp Pulse Resp BP Pulse Ox 97.8 F 70 17 114/73 95 06/08/18 08:00 06/08/18 08:30 06/08/18 08:30 06/08/18 08:30 06/08/18 08:30 General appearance: Present: no acute distress Results - Labs CBC & Chem 7: 06/08/18 04:45 06/08/18 09:59 Labs: Laboratory Last Values WBC 5.5 K/mm3 (4.5-11.0) 06/08/18 04:45 RBC 4.36 M/mm3 (3.65-5.03) 06/08/18 04:45 Hgb 13.4 gm/dl (11.8-15.2) 06/08/18 04:45 Hct 41.2 % (35.5-45.6) 06/08/18 04:45 MCV 94 fl (84-94) 06/08/18 04:45 MCH 31 pg (28-32) 06/08/18 04:45 MCHC 33 % (32-34) 06/08/18 04:45 RDW 14.5 % (13.2-15.2) 06/08/18 04:45 Plt Count 91 K/mm3 (140-440) L 06/08/18 04:45 Lymph % (Auto) 27.0 % (13.4-35.0) 06/08/18 04:45 [place] % (Auto) 8.7 % (0.0-7.3) H 06/08/18 04:45 Eos % (Auto) 4.4 % (0.0-4.3) H 06/08/18 04:45 Baso % (Auto) 0.5 % (0.0-1.8) 06/08/18 04:45 Lymph # 1.5 K/mm3 (1.2-5.4) 06/08/18 04:45 [place] # 0.5 K/mm3 (0.0-0.8) 06/08/18 04:45 Eos # 0.2 K/mm3 (0.0-0.4) 06/08/18 04:45 Baso # 0.0 K/mm3 (0.0-0.1) 06/08/18 04:45 Seg Neutrophils % 59.4 % (40.0-70.0) 06/08/18 04:45 Seg Neutrophils # 3.3 K/mm3 (1.8-7.7) 06/08/18 04:45 PT 17.3 Sec. (12.2-14.9) H 06/08/18 04:45 INR 1.37 (0.87-1.13) H 06/08/18 04:45 APTT 37.7 Sec. (24.2-36.6) H 06/06/18 09:59 Fibrinogen 375 mg/dl (211-480) 06/07/18 04:56 D-Dimer 4730.92 ng/mlDDU (0-234) H 06/05/18 21:14 Heparin Anti-Xa Level 0.79 U.I./ml (0.3-0.7) H 06/08/18 00:31 Sodium 139 mmol/L (137-145) 06/07/18 04:56 Potassium 4.4 mmol/L (3.6-5.0) 06/07/18 04:56 Chloride 107.7 mmol/L (98-107) H 06/07/18 04:56 Carbon Dioxide 22 mmol/L (22-30) 06/07/18 04:56 Anion Gap 14 mmol/L 06/07/18 04:56 BUN 13 mg/dL (9-20) 06/07/18 04:56 Creatinine 1.1 mg/dL (0.8-1.5) 06/07/18 04:56 Estimated GFR > 60 ml/min 06/07/18 04:56 BUN/Creatinine Ratio 12 % 06/07/18 04:56 Glucose 106 mg/dL (75-100) H 06/07/18 04:56 Calcium 8.3 mg/dL (8.4-10.2) L 06/07/18 04:56 Phosphorus 3.70 mg/dL (2.5-4.5) 06/07/18 04:56 Magnesium 1.80 mg/dL (1.7-2.3) 06/07/18 04:56 Total Creatine Kinase 65 units/L (55-170) 06/06/18 11:00 CK-MB (CK-2) 2.0 ng/mL (0.0-4.0) 06/06/18 11:00 CK-MB (CK-2) Rel Index 3.0 (0-4) 06/06/18 11:00 Troponin T < 0.010 ng/mL (0.00-0.029) 06/06/18 11:00 NT-Pro-B Natriuret Pep 4306 pg/mL (0-900) H 06/05/18 21:14 PTH Intact 133.4 pg/mL (15-65) H 06/07/18 04:56 Blood Type B POSITIVE 06/06/18 10:52 Antibody Screen Negative 06/06/18 10:52 Nutrition/Malnutrition Assess - Dietary Evaluation Nutrition/Malnutrition Findings: Nutrition Notes Start: 06/07/18 13:58 Freq: Status: Active Protocol: Document 06/07/18 13:58 REINALDO (Rec: 06/07/18 13:59 [email or web address] [email or web address]) Nutrition Notes Need for Assessment generated from: Education Initial or Follow up Brief Note Pertinent Medications Coumadin Subjective/Other Information Pt screened for DNI education. Pt gone to procedure at time of visit (12:25). Nutrition Intervention Follow-Up By: 06/08/18 Additional Comments F/U: DNI education needs
[2018-06-08] MEDS: NEURONTIN PO SCH ×2 (09:35→21:34)
[2018-06-08] MEDS: ZESTRIL PO SCH (09:35)
[2018-06-08] MEDS: ZYLOPRIM PO SCH ×2 (09:35→21:34)
[2018-06-08] MEDS: PEPCID PO SCH ×2 (09:36→21:33)
[2018-06-08] MEDS: NORVASC PO SCH (09:36)
[2018-06-08] MEDS: ROBAXIN PO SCH ×2 (09:45→21:34)
[2018-06-08] MEDS: MORPHINE IV PRN ×2 (09:45→16:47)
[2018-06-08] MEDS: HEPARIN/ 0.45% NACL-25,000 UNIT/500 ML 25,000 UNIT/500 ML BAG IV SCH (09:45)
[2018-06-08] MEDS: TIMOLOL OU SCH ×2 (09:53→21:31)
[2018-06-08] MEDS: DORZOLAMIDE OU SCH ×2 (09:53→21:31)
[2018-06-08 10:37] LABS: BUN/Creatinine Ratio 8; Blood Urea Nitrogen 9 mg/dL (9-20); Calcium 8.4 mg/dL (8.4-10.2); Hemolysis Index 5
--- NOTE | 2018-06-08 11:17 | Progress Note ---
Assessment and Plan Acute Kidney Injury possibly prerenal, DENNY, possible underlying CKD, NSAIDs use, r/o obstruction: - Cr cont to improve - Renally dose meds - S/p CTA chest IV contrast on 06/05/18 - Avoid NSAIDs - [place] Catheter: No (Condom Cath) Acute Bilateral Pulmonary Embolism: Vascular surgery consulted for massive pulmonary embolism with saddle embolus and right heart strain. S/p pharmacal mechanical thrombolysis with bilateral pulmonary artery EKOS placement, pulmonary angiogram on 06/06/18 Essential Hypertension: - Resume home meds - Adjust meds as needed Subjective Date of service: 06/08/18 Principal diagnosis: acute renal failure Interval history: denies acute issues, comfortable Objective - Vital Signs Vital signs: Vital Signs - 12hr 06/07/18 06/07/18 06/07/18 23:20 23:25 23:30 Temperature 99.3 F Pulse Rate 67 69 Pulse Rate [ From Monitor] Respiratory 23 20 Rate Blood Pressure 128/77 124/71 O2 Sat by Pulse 92 95 Oximetry 06/07/18 06/07/18 06/08/18 23:40 23:50 00:00 Temperature 98.6 F Pulse Rate 71 66 75 Pulse Rate [ 78 From Monitor] Respiratory 17 19 26 H Rate Blood Pressure 124/71 116/74 123/74 O2 Sat by Pulse 94 94 91 Oximetry 06/08/18 06/08/18 06/08/18 00:10 00:26 00:30 Temperature Pulse Rate 75 95 H 81 Pulse Rate [ From Monitor] Respiratory 26 H 11 L 21 Rate Blood Pressure 123/74 103/71 103/71 O2 Sat by Pulse 88 91 Oximetry 06/08/18 06/08/18 06/08/18 00:40 00:50 01:00 Temperature Pulse Rate 74 68 71 Pulse Rate [ From Monitor] Respiratory 18 21 22 Rate Blood Pressure 122/78 122/78 117/73 O2 Sat by Pulse 95 95 95 Oximetry 06/08/18 06/08/18 06/08/18 01:10 01:20 01:30 Temperature Pulse Rate 69 71 69 Pulse Rate [ From Monitor] Respiratory 21 21 18 Rate Blood Pressure 117/73 122/78 122/78 O2 Sat by Pulse 96 96 96 Oximetry 06/08/18 06/08/18 06/08/18 01:40 01:50 02:00 Temperature Pulse Rate 69 66 69 Pulse Rate [ From Monitor] Respiratory 20 20 21 Rate Blood Pressure 122/78 122/78 118/73 O2 Sat by Pulse 97 97 97 Oximetry 06/08/18 06/08/18 06/08/18 02:10 02:20 02:30 Temperature Pulse Rate 69 67 71 Pulse Rate [ From Monitor] Respiratory 18 17 20 Rate Blood Pressure 118/73 118/73 118/73 O2 Sat by Pulse 97 95 94 Oximetry 06/08/18 06/08/18 06/08/18 02:40 02:50 03:00 Temperature Pulse Rate 82 71 69 Pulse Rate [ From Monitor] Respiratory 25 H 21 16 Rate Blood Pressure 118/73 118/73 112/72 O2 Sat by Pulse 94 96 96 Oximetry 06/08/18 06/08/18 06/08/18 03:14 03:20 03:30 Temperature Pulse Rate 79 74 71 Pulse Rate [ From Monitor] Respiratory 25 H 16 18 Rate Blood Pressure 112/72 112/72 112/72 O2 Sat by Pulse 93 93 92 Oximetry 06/08/18 06/08/18 06/08/18 03:40 03:50 04:00 Temperature 98.9 F Pulse Rate 73 70 70 Pulse Rate [ 68 From Monitor] Respiratory 20 20 21 Rate Blood Pressure 112/72 124/75 O2 Sat by Pulse 94 94 95 Oximetry 06/08/18 06/08/18 06/08/18 04:10 04:20 04:30 Temperature Pulse Rate 68 70 65 Pulse Rate [ From Monitor] Respiratory 18 15 16 Rate Blood Pressure 124/75 124/75 124/75 O2 Sat by Pulse 95 94 94 Oximetry 06/08/18 06/08/18 06/08/18 04:40 04:50 05:00 Temperature Pulse Rate 72 72 85 Pulse Rate [ From Monitor] Respiratory 17 23 16 Rate Blood Pressure 124/75 124/75 124/75 O2 Sat by Pulse 92 94 89 Oximetry 06/08/18 06/08/18 06/08/18 05:10 05:20 05:30 Temperature Pulse Rate 71 79 67 Pulse Rate [ From Monitor] Respiratory 17 17 21 Rate Blood Pressure 124/75 124/75 124/75 O2 Sat by Pulse 92 93 94 Oximetry 06/08/18 06/08/18 06/08/18 05:40 05:50 06:00 Temperature Pulse Rate 65 67 64 Pulse Rate [ From Monitor] Respiratory 16 20 20 Rate Blood Pressure 124/75 124/75 124/75 O2 Sat by Pulse 95 96 95 Oximetry 06/08/18 06/08/18 06/08/18 06:10 06:24 06:30 Temperature Pulse Rate 78 77 64 Pulse Rate [ From Monitor] Respiratory 18 18 17 Rate Blood Pressure 121/72 121/72 121/72 O2 Sat by Pulse 94 95 93 Oximetry 06/08/18 06/08/18 06/08/18 06:40 06:50 07:00 Temperature Pulse Rate 65 66 67 Pulse Rate [ From Monitor] Respiratory 21 19 20 Rate Blood Pressure 121/72 121/72 124/79 O2 Sat by Pulse 96 97 97 Oximetry 06/08/18 06/08/18 06/08/18 07:10 07:20 07:30 Temperature Pulse Rate 69 70 71 Pulse Rate [ From Monitor] Respiratory 19 20 15 Rate Blood Pressure 121/72 121/72 121/72 O2 Sat by Pulse 96 96 97 Oximetry 06/08/18 06/08/18 06/08/18 07:40 07:50 07:56 Temperature Pulse Rate 70 78 Pulse Rate [ From Monitor] Respiratory 21 15 Rate Blood Pressure 124/79 124/79 O2 Sat by Pulse 92 92 96 Oximetry 06/08/18 06/08/18 06/08/18 08:00 08:10 08:20 Temperature 97.8 F Pulse Rate 67 66 69 Pulse Rate [ 68 From Monitor] Respiratory 18 16 16 Rate Blood Pressure 114/73 114/73 114/73 O2 Sat by Pulse 95 95 96 Oximetry 06/08/18 06/08/18 06/08/18 08:30 08:40 08:50 Temperature Pulse Rate 70 67 95 H Pulse Rate [ From Monitor] Respiratory 17 16 23 Rate Blood Pressure 114/73 114/73 114/73 O2 Sat by Pulse 95 97 Oximetry 06/08/18 06/08/18 06/08/18 09:00 09:10 09:20 Temperature Pulse Rate 81 89 70 Pulse Rate [ From Monitor] Respiratory 11 L 11 L 14 Rate Blood Pressure 114/73 114/73 114/73 O2 Sat by Pulse Oximetry 06/08/18 06/08/18 06/08/18 09:30 09:35 09:36 Temperature Pulse Rate 75 Pulse Rate [ From Monitor] Respiratory 17 Rate Blood Pressure 114/73 151/100 157/101 O2 Sat by Pulse Oximetry 06/08/18 06/08/18 06/08/18 09:40 09:50 10:00 Temperature Pulse Rate 72 72 80 Pulse Rate [ From Monitor] Respiratory 20 20 17 Rate Blood Pressure 114/73 114/73 114/73 O2 Sat by Pulse Oximetry 06/08/18 06/08/18 06/08/18 10:10 10:20 10:30 Temperature Pulse Rate 79 77 71 Pulse Rate [ From Monitor] Respiratory 11 L 16 12 Rate Blood Pressure 114/73 114/73 114/73 O2 Sat by Pulse Oximetry - General Appearance General appearance: well-developed, well-nourished, appears stated age EENT: ATNC, PERRL, mucous membranes moist Neck: no JVD, no carotid bruit Respiratory: Present: Clear to Ascultation. Absent: Rales, Ronchi Cardiology: regular, S1S2 Gastrointestinal: normoactive bowel sounds, no tenderness, no distended Integumentary: no rash, warm and dry Neurologic: no focal deficit, no asterixis, alert and oriented x3 Musculoskeletal: other (trace pitting edema in BLE) Psychiatric: mood/affect appropriate, cooperative - Lab 06/08/18 04:45 06/08/18 09:59 Most recent lab results Calcium 8.4 mg/dL (8.4-10.2) 06/08/18 09:59 Phosphorus 3.70 mg/dL (2.5-4.5) 06/07/18 04:56 Magnesium 1.80 mg/dL (1.7-2.3) 06/07/18 04:56 Medications & Allergies - Medications Allergies/Adverse Reactions: Allergies No Known Allergies Allergy (Verified 08/23/14 08:28) Home Medications: Home Medications Medication Instructions Recorded Confirmed Last Taken Type Allopurinol [Zyloprim] 300 mg PO BID 06/05/18 06/05/18 06/05/18 History Aspirin [Adult Low Dose Aspirin EC] 81 mg PO DAILY 06/05/18 06/05/18 06/05/18 History Brimonidine 0.15% [Alphagan P 1 drops OP Q8H 06/05/18 06/05/18 Unknown History 0.15%] Dorzolamide HCl/Timolol Maleat 10 ml OP BID 06/05/18 06/05/18 06/05/18 History [Dorzolamide-Timolol Eye Drops] Furosemide [Lasix TAB] 40 mg PO DAILY 06/05/18 06/05/18 06/05/18 History Gabapentin [Neurontin] 300 mg PO BID 06/05/18 06/05/18 06/05/18 History Ibuprofen [Ibu] 800 mg PO Q8H PRN 06/05/18 06/05/18 Unknown History Latanoprost/Pf [Latanoprost 0.005% 7.5 ml OP QHS 06/05/18 06/05/18 06/04/18 History Eye Drop] Lisinopril 40 mg PO DAILY 06/05/18 06/05/18 06/05/18 History Rosuvastatin (Nf) [Crestor] 20 mg PO DAILY 06/05/18 06/05/18 06/05/18 History Silver Sulfadiazine [Silvadene] 50 gm TP DAILY 06/05/18 06/05/18 06/05/18 History amLODIPine [Norvasc] 10 mg PO DAILY 06/05/18 06/05/18 06/05/18 History methOCARBAMOL [Robaxin TAB] 500 mg PO BID 06/05/18 06/05/18 06/05/18 History Active Medications: Generic Name Dose Route Start Last Admin Trade Name Freq PRN Reason Stop Dose Admin Acetaminophen 650 mg 06/06/18 00:28 Tylenol PO Q4H PRN Fever >101 Acetaminophen/Hydrocodone Bitart 2 each 06/06/18 11:40 06/06/18 22:20 [place] 5/325 PO 2 each Q6H PRN Administration Pain, Moderate (4-6) Albuterol 2.5 mg 06/06/18 00:32 Proventil IH Q6HRT PRN Shortness Of Breath Allopurinol 300 mg 06/06/18 10:00 06/08/18 09:35 Zyloprim PO 300 mg BID MAX Administration Amlodipine Besylate 10 mg 06/06/18 10:00 06/08/18 09:36 Norvasc PO 10 mg DAILY MAX Administration Atorvastatin Calcium 40 mg 06/06/18 22:00 06/07/18 22:15 Lipitor PO 40 mg QHS MAX Administration Famotidine 20 mg 06/06/18 22:00 06/08/18 09:36 Pepcid PO 20 mg BID MAX Administration Gabapentin 300 mg 06/06/18 10:00 06/08/18 09:35 Neurontin PO 300 mg BID MAX Administration Guaifenesin 200 mg 06/06/18 00:27 06/07/18 04:35 Robitussin PO 200 mg Q4H PRN Administration Cough Heparin Sodium/Sodium Chloride 25,000 unit in 500 mls @ 30 mls/hr 06/05/18 23:00 06/08/18 09:45 Heparin/ 0.45% Nacl-25,000 Unit/500 Ml IV 1,400 units/hr TITR MAX 28 mls/hr Administration Protocol 1,500 UNITS/HR Latanoprost 1 drops 06/06/18 22:00 06/07/18 22:16 Latanoprost 0.005% OU 1 drops QHS MAX Administration Lisinopril 40 mg 06/06/18 10:00 06/08/18 09:35 Zestril PO 40 mg DAILY MAX Administration Methocarbamol 500 mg 06/06/18 10:00 06/08/18 09:45 Robaxin PO 500 mg BID MAX Administration Miscellaneous Medication 1 drop 06/07/18 14:00 06/08/18 09:53 Brimonidine 0.2% OU 1 drop TID MAX Administration Miscellaneous Medication 1 drop 06/08/18 10:00 06/08/18 09:53 Dorzolamide/Timolol OU 1 drop BID MAX Administration Morphine Sulfate 2 mg 06/06/18 13:03 Morphine IV Q4H PRN Pain , Moderate Morphine Sulfate 4 mg 06/06/18 11:40 06/08/18 09:45 Morphine IV 4 mg Q4H PRN Administration Pain , Severe (7-10) Ondansetron HCl 4 mg 06/06/18 11:40 06/07/18 13:15 Zofran IV 4 mg Q8H PRN Administration Nausea And Vomiting Silver Sulfadiazine 1 applic 06/06/18 10:00 06/08/18 07:37 Thermazene 50 Gram TP Not Given DAILY [facility] Temazepam 15 mg 06/06/18 00:31 Restoril PO QHS PRN Insomnia Warfarin Sodium 10 mg 06/06/18 17:00 06/07/18 16:17 Coumadin PO 10 mg DAILY@1700 MAX Administration
--- NOTE | 2018-06-08 12:34 | Progress Note ---
Assessment and Plan Acute hypoxemic respiratory failure. Acute bilateral pulmonary embolus with saddle embolism. Cardiomyopathy with evidence of right heart strain. Obesity. Lung mass/nodule. History of gout. Hypertension - continue IV heparin - continue coumadin for target INR 2.0 to 3.0 - continue supplemental oxygen and wean to keep O2 Sat's > 90% - get CXR re: hypoxemia - lung Mass likely an area of infarction vs atelectasis; will repeat CT and follow outpatient - aspiration precautions - PT/OT - mobility protocol for pressure ulcer prophylaxis - continue G.I. prophylaxis - prn albuterol treatments - re-introduce home meds including glaucoma eye drops - continue other care per attending / other consultants .... transfer to medical floor [place] Subjective Date of service: 06/08/18 Principal diagnosis: Acute hypoxemic Resp failure; Acute tor. PE; CMOP; Obesity; Lung mass; ERIC Interval history: Patient is seen today for: Acute hypoxemic respiratory failure; Acute bilateral pulmonary embolus with saddle embolism; Cardiomyopathy with evidence of right heart strain; Obesity; Lung mass/nodule. Seen and examined at bedside; 24hour events reviewed; nursing and respiratory care staff consulted; no adverse overnight events reported to me; remains on supplemental oxygen but now up to 4L NC; denies acute chest pains or palpitations; no gross bleeding Objective Vital Signs - 12hr 06/08/18 06/08/18 06/08/18 00:40 00:50 01:00 Temperature Pulse Rate 74 68 71 Pulse Rate [ From Monitor] Respiratory 18 21 22 Rate Blood Pressure 122/78 122/78 117/73 O2 Sat by Pulse 95 95 95 Oximetry 06/08/18 06/08/18 06/08/18 01:10 01:20 01:30 Temperature Pulse Rate 69 71 69 Pulse Rate [ From Monitor] Respiratory 21 21 18 Rate Blood Pressure 117/73 122/78 122/78 O2 Sat by Pulse 96 96 96 Oximetry 06/08/18 06/08/18 06/08/18 01:40 01:50 02:00 Temperature Pulse Rate 69 66 69 Pulse Rate [ From Monitor] Respiratory 20 20 21 Rate Blood Pressure 122/78 122/78 118/73 O2 Sat by Pulse 97 97 97 Oximetry 06/08/18 06/08/18 06/08/18 02:10 02:20 02:30 Temperature Pulse Rate 69 67 71 Pulse Rate [ From Monitor] Respiratory 18 17 20 Rate Blood Pressure 118/73 118/73 118/73 O2 Sat by Pulse 97 95 94 Oximetry 06/08/18 06/08/18 06/08/18 02:40 02:50 03:00 Temperature Pulse Rate 82 71 69 Pulse Rate [ From Monitor] Respiratory 25 H 21 16 Rate Blood Pressure 118/73 118/73 112/72 O2 Sat by Pulse 94 96 96 Oximetry 06/08/18 06/08/18 06/08/18 03:14 03:20 03:30 Temperature Pulse Rate 79 74 71 Pulse Rate [ From Monitor] Respiratory 25 H 16 18 Rate Blood Pressure 112/72 112/72 112/72 O2 Sat by Pulse 93 93 92 Oximetry 06/08/18 06/08/18 06/08/18 03:40 03:50 04:00 Temperature 98.9 F Pulse Rate 73 70 70 Pulse Rate [ 68 From Monitor] Respiratory 20 20 21 Rate Blood Pressure 112/72 124/75 O2 Sat by Pulse 94 94 95 Oximetry 06/08/18 06/08/18 06/08/18 04:10 04:20 04:30 Temperature Pulse Rate 68 70 65 Pulse Rate [ From Monitor] Respiratory 18 15 16 Rate Blood Pressure 124/75 124/75 124/75 O2 Sat by Pulse 95 94 94 Oximetry 06/08/18 06/08/18 06/08/18 04:40 04:50 05:00 Temperature Pulse Rate 72 72 85 Pulse Rate [ From Monitor] Respiratory 17 23 16 Rate Blood Pressure 124/75 124/75 124/75 O2 Sat by Pulse 92 94 89 Oximetry 06/08/18 06/08/18 06/08/18 05:10 05:20 05:30 Temperature Pulse Rate 71 79 67 Pulse Rate [ From Monitor] Respiratory 17 17 21 Rate Blood Pressure 124/75 124/75 124/75 O2 Sat by Pulse 92 93 94 Oximetry 06/08/18 06/08/18 06/08/18 05:40 05:50 06:00 Temperature Pulse Rate 65 67 64 Pulse Rate [ From Monitor] Respiratory 16 20 20 Rate Blood Pressure 124/75 124/75 124/75 O2 Sat by Pulse 95 96 95 Oximetry 06/08/18 06/08/18 06/08/18 06:10 06:24 06:30 Temperature Pulse Rate 78 77 64 Pulse Rate [ From Monitor] Respiratory 18 18 17 Rate Blood Pressure 121/72 121/72 121/72 O2 Sat by Pulse 94 95 93 Oximetry 06/08/18 06/08/18 06/08/18 06:40 06:50 07:00 Temperature Pulse Rate 65 66 67 Pulse Rate [ From Monitor] Respiratory 21 19 20 Rate Blood Pressure 121/72 121/72 124/79 O2 Sat by Pulse 96 97 97 Oximetry 06/08/18 06/08/18 06/08/18 07:10 07:20 07:30 Temperature Pulse Rate 69 70 71 Pulse Rate [ From Monitor] Respiratory 19 20 15 Rate Blood Pressure 121/72 121/72 121/72 O2 Sat by Pulse 96 96 97 Oximetry 06/08/18 06/08/18 06/08/18 07:40 07:50 07:56 Temperature Pulse Rate 70 78 Pulse Rate [ From Monitor] Respiratory 21 15 Rate Blood Pressure 124/79 124/79 O2 Sat by Pulse 92 92 96 Oximetry 06/08/18 06/08/18 06/08/18 08:00 08:10 08:20 Temperature 97.8 F Pulse Rate 67 66 69 Pulse Rate [ 68 From Monitor] Respiratory 18 16 16 Rate Blood Pressure 114/73 114/73 114/73 O2 Sat by Pulse 95 95 96 Oximetry 06/08/18 06/08/18 06/08/18 08:30 08:40 08:50 Temperature Pulse Rate 70 67 95 H Pulse Rate [ From Monitor] Respiratory 17 16 23 Rate Blood Pressure 114/73 114/73 114/73 O2 Sat by Pulse 95 97 Oximetry 06/08/18 06/08/18 06/08/18 09:00 09:10 09:20 Temperature Pulse Rate 81 89 70 Pulse Rate [ From Monitor] Respiratory 11 L 11 L 14 Rate Blood Pressure 114/73 114/73 114/73 O2 Sat by Pulse Oximetry 06/08/18 06/08/18 06/08/18 09:30 09:35 09:36 Temperature Pulse Rate 75 Pulse Rate [ From Monitor] Respiratory 17 Rate Blood Pressure 114/73 151/100 157/101 O2 Sat by Pulse Oximetry 06/08/18 06/08/18 06/08/18 09:40 09:50 10:00 Temperature Pulse Rate 72 72 80 Pulse Rate [ From Monitor] Respiratory 20 20 17 Rate Blood Pressure 114/73 114/73 114/73 O2 Sat by Pulse Oximetry 06/08/18 06/08/18 06/08/18 10:10 10:20 10:30 Temperature Pulse Rate 79 77 71 Pulse Rate [ From Monitor] Respiratory 11 L 16 12 Rate Blood Pressure 114/73 114/73 114/73 O2 Sat by Pulse Oximetry 06/08/18 12:00 Temperature 97.2 F L Pulse Rate Pulse Rate [ From Monitor] Respiratory Rate Blood Pressure O2 Sat by Pulse Oximetry Constitutional: no acute distress, alert, other (elderly obese AAM, normocephalic and atraumatic with mildly increased resp effort) Eyes: non-icteric ENT: oropharynx moist, other (Mallampati 3) Neck: supple, no lymphadenopathy, no JVD, other (large neck circumference) Effort: mildly labored Ascultation: Bilateral: diminished breath sounds, rhonchi Percussion: Bilateral: not dull Cardiovascular: regular rate and rhythm Gastrointestinal: normoactive bowel sounds, soft, non-tender, non-distended Integumentary: normal Extremities: no cyanosis, pulses normal, no ischemia or petechiae, edema Neurologic: normal mental status, non-focal exam, pupils equal and round, motor strength normal and, other (weak) Psychiatric: mood appropriate, affect normal CBC and BMP: 06/11/18 05:27 06/11/18 05:27 ABG, PT/INR, D-dimer: PT/INR, D-dimer PT 17.3 Sec. (12.2-14.9) H 06/08/18 04:45 INR 1.37 (0.87-1.13) H 06/08/18 04:45 D-Dimer 4730.92 ng/mlDDU (0-234) H 06/05/18 21:14 Abnormal lab findings: Abnormal Labs 06/05/18 06/05/18 06/05/18 20:15 20:15 21:14 WBC RBC Hgb 15.6 H Hct 47.0 H MCV Plt Count 125 L Lymph % (Auto) [place] % (Auto) 9.8 H Eos % (Auto) PT INR APTT D-Dimer 4730.92 H Heparin Anti-Xa Level Chloride Carbon Dioxide 18 L Creatinine 1.7 H Glucose 149 H Calcium NT-Pro-B Natriuret Pep PTH Intact 06/05/18 06/05/18 06/05/18 21:14 22:46 22:46 WBC RBC Hgb Hct MCV Plt Count 102 L Lymph % (Auto) [place] % (Auto) Eos % (Auto) PT 16.1 H INR 1.25 H APTT D-Dimer Heparin Anti-Xa Level Chloride Carbon Dioxide Creatinine Glucose Calcium NT-Pro-B Natriuret Pep 4306 H PTH Intact 06/06/18 06/06/18 06/06/18 06:20 06:20 09:59 WBC RBC 5.27 H Hgb 16.3 H Hct 49.8 H D MCV 95 H Plt Count 85 L Lymph % (Auto) [place] % (Auto) Eos % (Auto) PT 15.8 H INR 1.22 H APTT D-Dimer Heparin Anti-Xa Level 1.10 H Chloride 107.4 H Carbon Dioxide 20 L Creatinine Glucose 113 H Calcium 8.2 L NT-Pro-B Natriuret Pep PTH Intact 06/06/18 06/06/18 06/06/18 09:59 09:59 13:35 WBC RBC Hgb Hct MCV Plt Count Lymph % (Auto) [place] % (Auto) Eos % (Auto) PT 15.0 H INR 1.14 H APTT 37.7 H D-Dimer Heparin Anti-Xa Level 1.45 H Chloride Carbon Dioxide Creatinine Glucose 138 H Calcium 8.3 L NT-Pro-B Natriuret Pep PTH Intact 06/06/18 06/06/18 06/06/18 13:35 18:02 18:02 WBC RBC Hgb Hct 45.9 H MCV Plt Count 103 L Lymph % (Auto) [place] % (Auto) 9.1 H Eos % (Auto) PT INR APTT D-Dimer Heparin Anti-Xa Level 1.32 H Chloride Carbon Dioxide 21 L Creatinine Glucose 113 H Calcium NT-Pro-B Natriuret Pep PTH Intact 06/06/18 06/06/18 06/07/18 22:46 22:46 04:56 WBC 4.2 L RBC Hgb Hct MCV 95 H Plt Count 110 L 88 L Lymph % (Auto) 35.4 H 35.9 H [place] % (Auto) 9.9 H 9.6 H Eos % (Auto) PT INR APTT D-Dimer Heparin Anti-Xa Level < 0.10 L Chloride Carbon Dioxide Creatinine Glucose Calcium NT-Pro-B Natriuret Pep PTH Intact 06/07/18 06/07/18 06/07/18 04:56 04:56 04:56 WBC RBC Hgb Hct MCV Plt Count Lymph % (Auto) [place] % (Auto) Eos % (Auto) PT INR APTT D-Dimer Heparin Anti-Xa Level < 0.10 L Chloride 107.7 H Carbon Dioxide Creatinine Glucose 106 H Calcium 8.3 L NT-Pro-B Natriuret Pep PTH Intact 133.4 H 06/08/18 06/08/18 06/08/18 00:31 04:45 04:45 WBC RBC Hgb Hct MCV Plt Count 91 L Lymph % (Auto) [place] % (Auto) 8.7 H Eos % (Auto) 4.4 H PT 17.3 H INR 1.37 H APTT D-Dimer Heparin Anti-Xa Level 0.79 H Chloride Carbon Dioxide Creatinine Glucose Calcium NT-Pro-B Natriuret Pep PTH Intact 06/08/18 09:59 WBC RBC Hgb Hct MCV Plt Count Lymph % (Auto) [place] % (Auto) Eos % (Auto) PT INR APTT D-Dimer Heparin Anti-Xa Level Chloride 107.2 H Carbon Dioxide Creatinine Glucose 111 H Calcium NT-Pro-B Natriuret Pep PTH Intact Allied health notes reviewed: nursing
--- NOTE | 2018-06-08 13:56 | Progress Note ---
Assessment and Plan s/p EKOS, IVc filter venous duplex showed LLE DVT restart oral anticoagulation with Eliquis ambulate ok to downgrade from ICU Subjective Date of service: 06/08/18 Principal diagnosis: Acute hypoxemic Resp failure; Acute tor. PE; CMOP; Obesity; Lung mass; ERIC Interval history: patient is doing well, have been OOB, no SOB Objective - Exam Narrative Exam: comfortable, no distress - Constitutional Vitals: Vital Signs - 12hr 06/08/18 06/08/18 06/08/18 02:00 02:10 02:20 Temperature Pulse Rate 69 69 67 Pulse Rate [ From Monitor] Respiratory 21 18 17 Rate Blood Pressure 118/73 118/73 118/73 O2 Sat by Pulse 97 97 95 Oximetry 06/08/18 06/08/18 06/08/18 02:30 02:40 02:50 Temperature Pulse Rate 71 82 71 Pulse Rate [ From Monitor] Respiratory 20 25 H 21 Rate Blood Pressure 118/73 118/73 118/73 O2 Sat by Pulse 94 94 96 Oximetry 06/08/18 06/08/18 06/08/18 03:00 03:14 03:20 Temperature Pulse Rate 69 79 74 Pulse Rate [ From Monitor] Respiratory 16 25 H 16 Rate Blood Pressure 112/72 112/72 112/72 O2 Sat by Pulse 96 93 93 Oximetry 06/08/18 06/08/18 06/08/18 03:30 03:40 03:50 Temperature 98.9 F Pulse Rate 71 73 70 Pulse Rate [ From Monitor] Respiratory 18 20 20 Rate Blood Pressure 112/72 112/72 O2 Sat by Pulse 92 94 94 Oximetry 06/08/18 06/08/18 06/08/18 04:00 04:10 04:20 Temperature Pulse Rate 70 68 70 Pulse Rate [ 68 From Monitor] Respiratory 21 18 15 Rate Blood Pressure 124/75 124/75 124/75 O2 Sat by Pulse 95 95 94 Oximetry 06/08/18 06/08/18 06/08/18 04:30 04:40 04:50 Temperature Pulse Rate 65 72 72 Pulse Rate [ From Monitor] Respiratory 16 17 23 Rate Blood Pressure 124/75 124/75 124/75 O2 Sat by Pulse 94 92 94 Oximetry 06/08/18 06/08/18 06/08/18 05:00 05:10 05:20 Temperature Pulse Rate 85 71 79 Pulse Rate [ From Monitor] Respiratory 16 17 17 Rate Blood Pressure 124/75 124/75 124/75 O2 Sat by Pulse 89 92 93 Oximetry 06/08/18 06/08/18 06/08/18 05:30 05:40 05:50 Temperature Pulse Rate 67 65 67 Pulse Rate [ From Monitor] Respiratory 21 16 20 Rate Blood Pressure 124/75 124/75 124/75 O2 Sat by Pulse 94 95 96 Oximetry 06/08/18 06/08/18 06/08/18 06:00 06:10 06:24 Temperature Pulse Rate 64 78 77 Pulse Rate [ From Monitor] Respiratory 20 18 18 Rate Blood Pressure 124/75 121/72 121/72 O2 Sat by Pulse 95 94 95 Oximetry 06/08/18 06/08/18 06/08/18 06:30 06:40 06:50 Temperature Pulse Rate 64 65 66 Pulse Rate [ From Monitor] Respiratory 17 21 19 Rate Blood Pressure 121/72 121/72 121/72 O2 Sat by Pulse 93 96 97 Oximetry 06/08/18 06/08/18 06/08/18 07:00 07:10 07:20 Temperature Pulse Rate 67 69 70 Pulse Rate [ From Monitor] Respiratory 20 19 20 Rate Blood Pressure 124/79 121/72 121/72 O2 Sat by Pulse 97 96 96 Oximetry 06/08/18 06/08/18 06/08/18 07:30 07:40 07:50 Temperature Pulse Rate 71 70 78 Pulse Rate [ From Monitor] Respiratory 15 21 15 Rate Blood Pressure 121/72 124/79 124/79 O2 Sat by Pulse 97 92 92 Oximetry 06/08/18 06/08/18 06/08/18 07:56 08:00 08:10 Temperature 97.8 F Pulse Rate 67 66 Pulse Rate [ 68 From Monitor] Respiratory 18 16 Rate Blood Pressure 114/73 114/73 O2 Sat by Pulse 96 95 95 Oximetry 06/08/18 06/08/18 06/08/18 08:20 08:30 08:40 Temperature Pulse Rate 69 70 67 Pulse Rate [ From Monitor] Respiratory 16 17 16 Rate Blood Pressure 114/73 114/73 114/73 O2 Sat by Pulse 96 95 97 Oximetry 06/08/18 06/08/18 06/08/18 08:50 09:00 09:10 Temperature Pulse Rate 95 H 81 89 Pulse Rate [ From Monitor] Respiratory 23 11 L 11 L Rate Blood Pressure 114/73 114/73 114/73 O2 Sat by Pulse Oximetry 06/08/18 06/08/18 06/08/18 09:20 09:30 09:35 Temperature Pulse Rate 70 75 Pulse Rate [ From Monitor] Respiratory 14 17 Rate Blood Pressure 114/73 114/73 151/100 O2 Sat by Pulse Oximetry 06/08/18 06/08/18 06/08/18 09:36 09:40 09:50 Temperature Pulse Rate 72 72 Pulse Rate [ From Monitor] Respiratory 20 20 Rate Blood Pressure 157/101 114/73 114/73 O2 Sat by Pulse Oximetry 06/08/18 06/08/18 06/08/18 10:00 10:10 10:20 Temperature Pulse Rate 80 79 77 Pulse Rate [ From Monitor] Respiratory 17 11 L 16 Rate Blood Pressure 114/73 114/73 114/73 O2 Sat by Pulse Oximetry 06/08/18 06/08/18 06/08/18 10:30 10:40 10:50 Temperature Pulse Rate 71 73 75 Pulse Rate [ From Monitor] Respiratory 12 17 22 Rate Blood Pressure 114/73 94/56 94/56 O2 Sat by Pulse Oximetry 06/08/18 06/08/18 06/08/18 11:00 11:10 11:20 Temperature Pulse Rate 73 70 71 Pulse Rate [ From Monitor] Respiratory 13 17 16 Rate Blood Pressure 94/56 100/47 100/47 O2 Sat by Pulse 94 94 Oximetry 06/08/18 06/08/18 06/08/18 11:30 11:40 11:50 Temperature Pulse Rate 71 69 76 Pulse Rate [ From Monitor] Respiratory 11 L 12 17 Rate Blood Pressure 100/47 100/47 100/47 O2 Sat by Pulse 95 95 92 Oximetry 06/08/18 06/08/18 06/08/18 12:00 12:10 12:20 Temperature 97.2 F L Pulse Rate 79 67 67 Pulse Rate [ 68 From Monitor] Respiratory 19 12 12 Rate Blood Pressure 100/47 125/79 125/79 O2 Sat by Pulse 91 94 95 Oximetry 06/08/18 06/08/18 06/08/18 12:30 12:40 12:50 Temperature Pulse Rate 76 78 76 Pulse Rate [ From Monitor] Respiratory 17 14 17 Rate Blood Pressure 125/79 125/79 125/79 O2 Sat by Pulse 94 96 95 Oximetry 06/08/18 06/08/18 06/08/18 13:00 13:10 13:20 Temperature Pulse Rate 83 83 81 Pulse Rate [ From Monitor] Respiratory 20 18 17 Rate Blood Pressure 125/79 131/87 131/87 O2 Sat by Pulse 97 96 94 Oximetry 06/08/18 06/08/18 06/08/18 13:30 13:40 13:50 Temperature Pulse Rate 84 87 80 Pulse Rate [ From Monitor] Respiratory 18 18 22 Rate Blood Pressure 131/87 131/87 131/87 O2 Sat by Pulse 95 94 94 Oximetry - Labs CBC & Chem 7: 06/08/18 04:45 06/08/18 09:59 Labs: Abnormal lab results 06/08/18 06/08/18 06/08/18 Range/Units 00:31 04:45 04:45 Plt Count 91 L (140-440) K/mm3 [place] % (Auto) 8.7 H (0.0-7.3) % Eos % (Auto) 4.4 H (0.0-4.3) % PT 17.3 H (12.2-14.9) Sec. INR 1.37 H (0.87-1.13) Heparin Anti-Xa Level 0.79 H (0.3-0.7) U.I./ml Chloride (98-107) mmol/L Glucose (75-100) mg/dL 06/08/18 Range/Units 09:59 Plt Count (140-440) K/mm3 [place] % (Auto) (0.0-7.3) % Eos % (Auto) (0.0-4.3) % PT (12.2-14.9) Sec. INR (0.87-1.13) Heparin Anti-Xa Level (0.3-0.7) U.I./ml Chloride 107.2 H (98-107) mmol/L Glucose 111 H (75-100) mg/dL Medications & Allergies - Medications Allergies/Adverse Reactions: Allergies No Known Allergies Allergy (Verified 08/23/14 08:28) Home Medications: Home Medications Medication Instructions Recorded Confirmed Last Taken Type Allopurinol [Zyloprim] 300 mg PO BID 06/05/18 06/05/18 06/05/18 History Aspirin [Adult Low Dose Aspirin EC] 81 mg PO DAILY 06/05/18 06/05/18 06/05/18 History Brimonidine 0.15% [Alphagan P 1 drops OP Q8H 06/05/18 06/05/18 Unknown History 0.15%] Dorzolamide HCl/Timolol Maleat 10 ml OP BID 06/05/18 06/05/18 06/05/18 History [Dorzolamide-Timolol Eye Drops] Furosemide [Lasix TAB] 40 mg PO DAILY 06/05/18 06/05/18 06/05/18 History Gabapentin [Neurontin] 300 mg PO BID 06/05/18 06/05/18 06/05/18 History Ibuprofen [Ibu] 800 mg PO Q8H PRN 06/05/18 06/05/18 Unknown History Latanoprost/Pf [Latanoprost 0.005% 7.5 ml OP QHS 06/05/18 06/05/18 06/04/18 History Eye Drop] Lisinopril 40 mg PO DAILY 06/05/18 06/05/18 06/05/18 History Rosuvastatin (Nf) [Crestor] 20 mg PO DAILY 06/05/18 06/05/18 06/05/18 History Silver Sulfadiazine [Silvadene] 50 gm TP DAILY 06/05/18 06/05/18 06/05/18 History amLODIPine [Norvasc] 10 mg PO DAILY 06/05/18 06/05/18 06/05/18 History methOCARBAMOL [Robaxin TAB] 500 mg PO BID 06/05/18 06/05/18 06/05/18 History Active Medications: Generic Name Dose Route Start Last Admin Trade Name Oliverq PRN Reason Stop Dose Admin Acetaminophen 650 mg 06/06/18 00:28 Tylenol PO Q4H PRN Fever >101 Acetaminophen/Hydrocodone Bitart 2 each 06/06/18 11:40 06/06/18 22:20 [place] 5/325 PO 2 each Q6H PRN Administration Pain, Moderate (4-6) Albuterol 2.5 mg 06/06/18 00:32 Proventil IH Q6HRT PRN Shortness Of Breath Allopurinol 300 mg 06/06/18 10:00 06/08/18 09:35 Zyloprim PO 300 mg BID MAX Administration Amlodipine Besylate 10 mg 06/06/18 10:00 06/08/18 09:36 Norvasc PO 10 mg DAILY MAX Administration Atorvastatin Calcium 40 mg 06/06/18 22:00 06/07/18 22:15 Lipitor PO 40 mg QHS MAX Administration Famotidine 20 mg 06/06/18 22:00 06/08/18 09:36 Pepcid PO 20 mg BID MAX Administration Gabapentin 300 mg 06/06/18 10:00 06/08/18 09:35 Neurontin PO 300 mg BID MAX Administration Guaifenesin 200 mg 06/06/18 00:27 06/07/18 04:35 Robitussin PO 200 mg Q4H PRN Administration Cough Heparin Sodium/Sodium Chloride 25,000 unit in 500 mls @ 30 mls/hr 06/05/18 23:00 06/08/18 09:45 Heparin/ 0.45% Nacl-25,000 Unit/500 Ml IV 1,400 units/hr TITR MAX 28 mls/hr Administration Protocol 1,500 UNITS/HR Latanoprost 1 drops 06/06/18 22:00 06/07/18 22:16 Latanoprost 0.005% OU 1 drops QHS [facility] Administration Lisinopril 40 mg 06/06/18 10:00 06/08/18 09:35 Zestril PO 40 mg DAILY [facility] Administration Methocarbamol 500 mg 06/06/18 10:00 06/08/18 09:45 Robaxin PO 500 mg BID [facility] Administration Miscellaneous Medication 1 drop 06/07/18 14:00 06/08/18 09:53 Brimonidine 0.2% OU 1 drop TID [facility] Administration Miscellaneous Medication 1 drop 06/08/18 10:00 06/08/18 09:53 Dorzolamide/Timolol OU 1 drop BID [facility] Administration Morphine Sulfate 2 mg 06/06/18 13:03 Morphine IV Q4H PRN Pain , Moderate Morphine Sulfate 4 mg 06/06/18 11:40 06/08/18 09:45 Morphine IV 4 mg Q4H PRN Administration Pain , Severe (7-10) Ondansetron HCl 4 mg 06/06/18 11:40 06/07/18 13:15 Zofran IV 4 mg Q8H PRN Administration Nausea And Vomiting Silver Sulfadiazine 1 applic 06/06/18 10:00 06/08/18 07:37 Thermazene 50 Gram TP Not Given DAILY MAX Temazepam 15 mg 06/06/18 00:31 Restoril PO QHS PRN Insomnia Warfarin Sodium 10 mg 06/06/18 17:00 06/07/18 16:17 Coumadin PO 10 mg DAILY@1700 MAX Administration
[2018-06-08] MEDS: COUMADIN PO SCH (16:47)
[2018-06-08] MEDS ORDERED: LEVOPHED DRIP 4 MG/NS 250 ML 4 MG/250 ML BAG IV ONE (18:26)
[2018-06-08] MEDS: LATANOPROST 0.005% OU SCH (21:42)
[2018-06-09] MEDS: HEPARIN/ 0.45% NACL-25,000 UNIT/500 ML 25,000 UNIT/500 ML BAG IV SCH ×2 (03:19→21:56)
[2018-06-09 08:40] LABS: Hemoglobin 13.9 gm/dl (11.8-15.2)
[2018-06-09 08:52] LABS: INR 1.74 (0.87-1.13)
[2018-06-09] MEDS: ZYLOPRIM PO SCH ×2 (10:13→21:58)
[2018-06-09] MEDS: ZESTRIL PO SCH (10:13)
[2018-06-09] MEDS: PEPCID PO SCH ×2 (10:13→21:58)
[2018-06-09] MEDS: NEURONTIN PO SCH ×2 (10:13→21:58)
[2018-06-09] MEDS: BRIMONIDINE 0.2% OU SCH ×3 (10:14→20:01)
[2018-06-09] MEDS: ROBAXIN PO SCH ×2 (10:14→21:58)
[2018-06-09] MEDS: DORZOLAMIDE OU SCH ×2 (10:15→21:59)
[2018-06-09] MEDS: TIMOLOL OU SCH ×2 (10:15→21:59)
[2018-06-09] MEDS: NORVASC PO SCH (10:18)
--- NOTE | 2018-06-09 11:24 | Progress Note ---
Assessment and Plan Assessment and plan: Septal pulmonary embolus. Patient is doing well following thrombolytic therapy for his pulmonary embolism. This is his second major pulmonary embolism. He will need to remain on anticoagulation lifelong. Vascular surgery following. s/p removal of thrombolytics catheters, bilateral pulmonary angiog talon, IVC filter placement on 06/07/18. On heparin Coumadin Hypertension. Continue current hypertensive medications. Acute kidney injury. Etiology likely secondary to vasomotor nephropathy/dehydration. Improved. Continue to follow BMP. Discussed with patient and 2 sisters at bedside. History Interval history: Feels better, Less shortness of breath Hospitalist Physical - Physical exam Narrative exam: GEN: Not in acute distress, lying in bed, Obese HEENT: Normocephalic, atraumatic, Neck: supple, No JVD Lungs: Clear to auscultation bilaterally, no wheeze Heart:S1 and S2 regular, no murmurs, rubs or gallop, Abd:soft, non tender, non distended, normal bowel sounds Ext: No edema, no clubbing or cyanosis Neuro: Awake,alert, oriented x 3, No focal signs Psych:Normal mood - Constitutional Vitals: Temp Pulse Resp BP Pulse Ox 99.7 F H 76 20 122/74 93 06/09/18 08:46 06/09/18 08:45 06/09/18 08:45 06/09/18 08:45 06/09/18 09:47 General appearance: Present: no acute distress Results - Labs CBC & Chem 7: 06/09/18 07:52 06/10/18 04:26 Labs: Laboratory Last Values WBC 5.5 K/mm3 (4.5-11.0) 06/08/18 04:45 RBC 4.36 M/mm3 (3.65-5.03) 06/08/18 04:45 Hgb 13.9 gm/dl (11.8-15.2) 06/09/18 07:52 Hct 41.0 % (35.5-45.6) 06/09/18 07:52 MCV 94 fl (84-94) 06/08/18 04:45 MCH 31 pg (28-32) 06/08/18 04:45 MCHC 33 % (32-34) 06/08/18 04:45 RDW 14.5 % (13.2-15.2) 06/08/18 04:45 Plt Count 102 K/mm3 (140-440) L 06/09/18 07:52 Lymph % (Auto) 27.0 % (13.4-35.0) 06/08/18 04:45 [place] % (Auto) 8.7 % (0.0-7.3) H 06/08/18 04:45 Eos % (Auto) 4.4 % (0.0-4.3) H 06/08/18 04:45 Baso % (Auto) 0.5 % (0.0-1.8) 06/08/18 04:45 Lymph # 1.5 K/mm3 (1.2-5.4) 06/08/18 04:45 [place] # 0.5 K/mm3 (0.0-0.8) 06/08/18 04:45 Eos # 0.2 K/mm3 (0.0-0.4) 06/08/18 04:45 Baso # 0.0 K/mm3 (0.0-0.1) 06/08/18 04:45 Seg Neutrophils % 59.4 % (40.0-70.0) 06/08/18 04:45 Seg Neutrophils # 3.3 K/mm3 (1.8-7.7) 06/08/18 04:45 PT 20.8 Sec. (12.2-14.9) H 06/09/18 07:52 INR 1.74 (0.87-1.13) H 06/09/18 07:52 APTT 37.7 Sec. (24.2-36.6) H 06/06/18 09:59 Fibrinogen 375 mg/dl (211-480) 06/07/18 04:56 D-Dimer 4730.92 ng/mlDDU (0-234) H 06/05/18 21:14 Heparin Anti-Xa Level 0.59 U.I./ml (0.3-0.7) 06/09/18 07:52 Sodium 141 mmol/L (137-145) 06/08/18 09:59 Potassium 4.3 mmol/L (3.6-5.0) 06/08/18 09:59 Chloride 107.2 mmol/L (98-107) H 06/08/18 09:59 Carbon Dioxide 23 mmol/L (22-30) 06/08/18 09:59 Anion Gap 15 mmol/L 06/08/18 09:59 BUN 9 mg/dL (9-20) 06/08/18 09:59 Creatinine 1.2 mg/dL (0.8-1.5) 06/08/18 09:59 Estimated GFR > 60 ml/min 06/08/18 09:59 BUN/Creatinine Ratio 8 % 06/08/18 09:59 Glucose 111 mg/dL (75-100) H 06/08/18 09:59 Calcium 8.4 mg/dL (8.4-10.2) 06/08/18 09:59 Phosphorus 3.70 mg/dL (2.5-4.5) 06/07/18 04:56 Magnesium 1.80 mg/dL (1.7-2.3) 06/07/18 04:56 Total Creatine Kinase 65 units/L (55-170) 06/06/18 11:00 CK-MB (CK-2) 2.0 ng/mL (0.0-4.0) 06/06/18 11:00 CK-MB (CK-2) Rel Index 3.0 (0-4) 06/06/18 11:00 Troponin T < 0.010 ng/mL (0.00-0.029) 06/06/18 11:00 NT-Pro-B Natriuret Pep 4306 pg/mL (0-900) H 06/05/18 21:14 PTH Intact 133.4 pg/mL (15-65) H 06/07/18 04:56 Blood Type B POSITIVE 06/06/18 10:52 Antibody Screen Negative 06/06/18 10:52 Nutrition/Malnutrition Assess - Dietary Evaluation Nutrition/Malnutrition Findings: Nutrition Notes Start: 06/07/18 13:58 Freq: Status: Active Protocol: Document 06/08/18 15:27 REINALDO (Rec: 06/08/18 15:28 REINALDO [email or web address] [email or web address]) Nutrition Notes Initial or Follow up Brief Note Subjective/Other Information Pt reports taking coumadin [employer] . He is familiar with high vit K foods. Denied need for additional DNI education. Nutrition Intervention Follow-Up By: 06/11/18 Additional Comments F/U: LOS
--- NOTE | 2018-06-09 12:42 | Progress Note ---
Assessment and Plan Acute Kidney Injury possibly prerenal, DENNY, possible underlying CKD, NSAIDs use - Renal function improving, recent serum creatinine 1.2 yesterday. No new renal labs noted for today, non-oliguric - Renal ultrasound- Left renal cyst. No solid mass, stones or hydronephrosis - Renally dose medications - S/p CTA chest IV contrast on 06/05/18 - Avoid NSAIDs - Has condom cath in place - Monitor I/O's - Continue to monitor renal function Acute Bilateral Pulmonary Embolism: -Vascular surgery consulted for massive pulmonary embolism with saddle embolus and right heart strain. S/p pharmacal mechanical thrombolysis with bilateral ---Pulmonary artery EKOS placement, pulmonary angiogram on 06/06/18 -On Heparin drip and Warfarin Essential Hypertension: - On Amlodipine - Adjust meds as needed Subjective Date of service: 06/09/18 Principal diagnosis: Acute hypoxemic Resp failure; Acute tor. PE; CMOP; Obesity; Lung mass; ERIC Interval history: Patient seen sitting up in bed talking on phone. Sister at bedside. Objective - Vital Signs Vital signs: Vital Signs - 12hr 06/09/18 06/09/18 06/09/18 04:26 08:45 08:46 Temperature 99.3 F 99.7 F H Pulse Rate 77 76 Respiratory 16 20 Rate Blood Pressure 123/78 122/74 O2 Sat by Pulse 94 96 Oximetry 06/09/18 09:47 Temperature Pulse Rate Respiratory Rate Blood Pressure O2 Sat by Pulse 93 Oximetry - General Appearance General appearance: well-developed, fatigue EENT: ATNC, PERRL, hearing intact, vision intact Neck: no JVD, supple Respiratory: Present: Decreased Breath Sounds Cardiology: S1S2 Gastrointestinal: normoactive bowel sounds Integumentary: warm and dry Neurologic: alert and oriented x3 Musculoskeletal: other (trace edema) - Lab 06/09/18 07:52 06/08/18 09:59 Most recent lab results Calcium 8.4 mg/dL (8.4-10.2) 06/08/18 09:59 Phosphorus 3.70 mg/dL (2.5-4.5) 06/07/18 04:56 Magnesium 1.80 mg/dL (1.7-2.3) 06/07/18 04:56 Medications & Allergies - Medications Allergies/Adverse Reactions: Allergies No Known Allergies Allergy (Verified 08/23/14 08:28) Home Medications: Home Medications Medication Instructions Recorded Confirmed Last Taken Type Allopurinol [Zyloprim] 300 mg PO BID 06/05/18 06/05/18 06/05/18 History Aspirin [Adult Low Dose Aspirin EC] 81 mg PO DAILY 06/05/18 06/05/18 06/05/18 History Brimonidine 0.15% [Alphagan P 1 drops OP Q8H 06/05/18 06/05/18 Unknown History 0.15%] Dorzolamide HCl/Timolol Maleat 10 ml OP BID 06/05/18 06/05/18 06/05/18 History [Dorzolamide-Timolol Eye Drops] Furosemide [Lasix TAB] 40 mg PO DAILY 06/05/18 06/05/18 06/05/18 History Gabapentin [Neurontin] 300 mg PO BID 06/05/18 06/05/18 06/05/18 History Ibuprofen [Ibu] 800 mg PO Q8H PRN 06/05/18 06/05/18 Unknown History Latanoprost/Pf [Latanoprost 0.005% 7.5 ml OP QHS 06/05/18 06/05/18 06/04/18 History Eye Drop] Lisinopril 40 mg PO DAILY 06/05/18 06/05/18 06/05/18 History Rosuvastatin (Nf) [Crestor] 20 mg PO DAILY 06/05/18 06/05/18 06/05/18 History Silver Sulfadiazine [Silvadene] 50 gm TP DAILY 06/05/18 06/05/18 06/05/18 Histor y amLODIPine [Norvasc] 10 mg PO DAILY 06/05/18 06/05/18 06/05/18 History methOCARBAMOL [Robaxin TAB] 500 mg PO BID 06/05/18 06/05/18 06/05/18 History Active Medications: Generic Name Dose Route Start Last Admin Trade Name Freq PRN Reason Stop Dose Admin Acetaminophen 650 mg 06/06/18 00:28 Tylenol PO Q4H PRN Fever >101 Acetaminophen/Hydrocodone Bitart 2 each 06/06/18 11:40 06/06/18 22:20 [place] 5/325 PO 2 each Q6H PRN Administration Pain, Moderate (4-6) Albuterol 2.5 mg 06/06/18 00:32 Proventil IH Q6HRT PRN Shortness Of Breath Allopurinol 300 mg 06/06/18 10:00 06/09/18 10:13 Zyloprim PO 300 mg BID MAX Administration Amlodipine Besylate 10 mg 06/06/18 10:00 06/09/18 10:18 Norvasc PO 10 mg DAILY MAX Administration Atorvastatin Calcium 40 mg 06/06/18 22:00 06/08/18 21:33 Lipitor PO 40 mg QHS MAX Administration Famotidine 20 mg 06/06/18 22:00 06/09/18 10:13 Pepcid PO 20 mg BID MAX Administration Gabapentin 300 mg 06/06/18 10:00 06/09/18 10:13 Neurontin PO 300 mg BID MAX Administration Guaifenesin 200 mg 06/06/18 00:27 06/07/18 04:35 Robitussin PO 200 mg Q4H PRN Administration Cough Heparin Sodium/Sodium Chloride 25,000 unit in 500 mls @ 30 mls/hr 06/05/18 23:00 06/09/18 03:19 Heparin/ 0.45% Nacl-25,000 Unit/500 Ml IV 1,400 units/hr TITR MAX 28 mls/hr Administration Protocol 1,500 UNITS/HR Latanoprost 1 drops 06/06/18 22:00 06/08/18 21:42 Latanoprost 0.005% OU 1 drops QHS MAX Administration Lisinopril 40 mg 06/06/18 10:00 06/09/18 10:13 Zestril PO 40 mg DAILY MAX Administration Methocarbamol 500 mg 06/06/18 10:00 06/09/18 10:14 Robaxin PO 500 mg BID MAX Administration Miscellaneous Medication 1 drop 06/07/18 14:00 06/09/18 10:14 Brimonidine 0.2% OU 1 drop TID MAX Administration Miscellaneous Medication 1 drop 06/08/18 10:00 06/09/18 10:15 Dorzolamide/Timolol OU 1 drop BID MAX Administration Morphine Sulfate 2 mg 06/06/18 13:03 Morphine IV Q4H PRN Pain , Moderate Morphine Sulfate 4 mg 06/06/18 11:40 06/08/18 16:47 Morphine IV 4 mg Q4H PRN Administration Pain , Severe (7-10) Ondansetron HCl 4 mg 06/06/18 11:40 06/07/18 13:15 Zofran IV 4 mg Q8H PRN Administration Nausea And Vomiting Silver Sulfadiazine 1 applic 06/06/18 10:00 06/08/18 13:57 Thermazene 50 Gram TP Not Given DAILY MAX Temazepam 15 mg 06/06/18 00:31 Restoril PO QHS PRN Insomnia Warfarin Sodium 10 mg 06/06/18 17:00 06/08/18 16:47 Coumadin PO 10 mg DAILY@1700 MAX Administration
[2018-06-09] MEDS: THERMAZENE 50 GRAM TP SCH (15:29)
[2018-06-09] MEDS: COUMADIN PO SCH (18:50)
--- NOTE | 2018-06-09 19:17 | Progress Note ---
Assessment and Plan Patient alert, awake. No complaint of chest pain. Complaining shortness of breath on exertion. Patient is on room air.O2 saturation 95%. Patient diagnosed with pulmonary emboli, saddle embolus. Patient is on I/V Heparin. Patient started on PO coumdin. - Patient Problems (1) Multiple pulmonary emboli Current Visit: Yes Status: Acute Plan to address problem: Patient is on I/V Heparin. Started on PO coumadin. Recommend to check Protein C,Protein S and anti thrombin 3. (2) Chest pain Current Visit: Yes Status: Acute Qualifiers: Chest pain type: unspecified Qualified Code(s): R07.9 - Chest pain, unspec ified Plan to address problem: No complaint of chest pain at this time. (3) Hypotension Current Visit: Yes Status: Acute Qualifiers: Hypotension type: unspecified hypotension type Qualified Code(s): I95.9 - Hypotension, unspecified Plan to address problem: Blood pressure improved. 104/55. (4) Thrombocytopenia Current Visit: No Status: Acute Plan to address problem: Platelet count slightly improved. 102,000. Subjective Date of service: 06/09/18 Principal diagnosis: Acute hypoxemic Resp failure; Acute tor. PE; CMOP; Obesity; Lung mass; ERIC Interval history: Patient alert, awake. No complaint of chest pain. Complaining shortness of breath on exertion. Patient is on room air.O2 saturation 95%. Patient diagnosed with pulmonary emboli, saddle embolus. Patient is on I/V Heparin. Patient started on PO coumdin. Objective Vital Signs - 12hr 06/09/18 06/09/18 06/09/18 08:45 08:46 09:47 Temperature 99.7 F H Pulse Rate 76 Respiratory 20 Rate Blood Pressure 122/74 O2 Sat by Pulse 96 93 Oximetry 06/09/18 06/09/18 06/09/18 12:44 12:46 17:34 Temperature 97.3 F L 98.1 F Pulse Rate 74 69 Respiratory 20 18 Rate Blood Pressure 126/78 104/55 O2 Sat by Pulse 96 95 Oximetry Constitutional: no acute distress, alert Eyes: non-icteric ENT: oropharynx moist, other (Mallampati 3) Neck: supple, no lymphadenopathy, no JVD, other (large neck circumference) Effort: mildly labored Ascultation: Bilateral: diminished breath sounds Cardiovascular: regular rate and rhythm Gastrointestinal: normoactive bowel sounds, soft, non-tender, non-distended Integumentary: normal Extremities: no cyanosis, pulses normal, no ischemia or petechiae, edema Neurologic: normal mental status, non-focal exam, pupils equal and round, motor strength normal and, other (weak) Psychiatric: mood appropriate, affect normal CBC and BMP: 06/09/18 07:52 06/08/18 09:59 ABG, PT/INR, D-dimer: PT/INR, D-dimer PT 20.8 Sec. (12.2-14.9) H 06/09/18 07:52 INR 1.74 (0.87-1.13) H 06/09/18 07:52 D-Dimer 4730.92 ng/mlDDU (0-234) H 06/05/18 21:14 Abnormal lab findings: Abnormal Labs 06/05/18 06/05/18 06/05/18 20:15 20:15 21:14 WBC RBC Hgb 15.6 H Hct 47.0 H MCV Plt Count 125 L Lymph % (Auto) [facility] % (Auto) 9.8 H Eos % (Auto) PT INR APTT D-Dimer 4730.92 H Heparin Anti-Xa Level Chloride Carbon Dioxide 18 L Creatinine 1.7 H Glucose 149 H Calcium NT-Pro-B Natriuret Pep PTH Intact 06/05/18 06/05/18 06/05/18 21:14 22:46 22:46 WBC RBC Hgb Hct MCV Plt Count 102 L Lymph % (Auto) [facility] % (Auto) Eos % (Auto) PT 16.1 H INR 1.25 H APTT D-Dimer Heparin Anti-Xa Level Chloride Carbon Dioxide Creatinine Glucose Calcium NT-Pro-B Natriuret Pep 4306 H PTH Intact 06/06/18 06/06/18 06/06/18 06:20 06:20 09:59 WBC RBC 5.27 H Hgb 16.3 H Hct 49.8 H D MCV 95 H Plt Count 85 L Lymph % (Auto) [facility] % (Auto) Eos % (Auto) PT 15.8 H INR 1.22 H APTT D-Dimer Heparin Anti-Xa Level 1.10 H Chloride 107.4 H Carbon Dioxide 20 L Creatinine Glucose 113 H Calcium 8.2 L NT-Pro-B Natriuret Pep PTH Intact 06/06/18 06/06/18 06/06/18 09:59 09:59 13:35 WBC RBC Hgb Hct MCV Plt Count Lymph % (Auto) [facility] % (Auto) Eos % (Auto) PT 15.0 H INR 1.14 H APTT 37.7 H D-Dimer Heparin Anti-Xa Level 1.45 H Chloride Carbon Dioxide Creatinine Glucose 138 H Calcium 8.3 L NT-Pro-B Natriuret Pep PTH Intact 06/06/18 06/06/18 06/06/18 13:35 18:02 18:02 WBC RBC Hgb Hct 45.9 H MCV Plt Count 103 L Lymph % (Auto) [facility] % (Auto) 9.1 H Eos % (Auto) PT INR APTT D-Dimer Heparin Anti-Xa Level 1.32 H Chloride Carbon Dioxide 21 L Creatinine Glucose 113 H Calcium NT-Pro-B Natriuret Pep PTH Intact 06/06/18 06/06/18 06/07/18 22:46 22:46 04:56 WBC 4.2 L RBC Hgb Hct MCV 95 H Plt Count 110 L 88 L Lymph % (Auto) 35.[address] [facility] % (Auto) 9.9 H 9.6 H Eos % (Auto) PT INR APTT D-Dimer Heparin Anti-Xa Level < 0.10 L Chloride Carbon Dioxide Creatinine Glucose Calcium NT-Pro-B Natriuret Pep PTH Intact 06/07/18 06/07/18 06/07/18 04:56 04:56 04:56 WBC RBC Hgb Hct MCV Plt Count Lymph % (Auto) [facility] % (Auto) Eos % (Auto) PT INR APTT D-Dimer Heparin Anti-Xa Level < 0.10 L Chloride 107.7 H Carbon Dioxide Creatinine Glucose 106 H Calcium 8.3 L NT-Pro-B Natriuret Pep PTH Intact 133.4 H 06/08/18 06/08/18 06/08/18 00:31 04:45 04:45 WBC RBC Hgb Hct MCV Plt Count 91 L Lymph % (Auto) [facility] % (Auto) 8.7 H Eos % (Auto) 4.4 H PT 17.3 H INR 1.37 H APTT D-Dimer Heparin Anti-Xa Level 0.79 H Chloride Carbon Dioxide Creatinine Glucose Calcium NT-Pro-B Natriuret Pep PTH Intact 06/08/18 06/09/1806/09/19 09:59 07:52 07:52 WBC RBC Hgb Hct MCV Plt Count 102 L Lymph % (Auto) [facility] % (Auto) Eos % (Auto) PT 20.8 H INR 1.74 H APTT D-Dimer Heparin Anti-Xa Level Chloride 107.2 H Carbon Dioxide Creatinine Glucose 111 H Calcium NT-Pro-B Natriuret Pep PTH Intact Chest x-ray: report reviewed (Reported negative chest.), image reviewed CT scan - chest: report reviewed (Bilateral pulmonary emboli. saddle embolus.), image reviewed Allied health notes reviewed: nursing
[2018-06-09] MEDS: LATANOPROST 0.005% OU SCH (21:58)
[2018-06-10 06:27] LABS: INR 2.09 (0.87-1.13)
[2018-06-10 06:36] LABS: BUN/Creatinine Ratio 9; Blood Urea Nitrogen 10 mg/dL (9-20); Calcium 8.7 mg/dL (8.4-10.2); Hemolysis Index 4
[2018-06-10] MEDS: NORCO 5/325 PO PRN ×3 (08:45→18:00)
--- NOTE | 2018-06-10 09:04 | Progress Note ---
Assessment and Plan Acute hypoxemic respiratory failure. Acute bilateral pulmonary embolus with saddle embolism. Cardiomyopathy with evidence of right heart strain. Obesity. Lung mass/nodule. History of gout. Hypertension - continue IV heparin - continue coumadin for target INR 2.0 to 3.0 - continue supplemental oxygen and wean to keep O2 Sat's > 90% - lung Mass likely an area of infarction vs atelectasis, will need repeat CT and follow outpatient -aspiration precautions - PT/OT, increase activity - continue G.I. prophylaxis - prn albuterol treatments - continue chronic home medications Patient states his community enforcement manager is Dr. Morrow, will transfer care. Continue other care per attending / other consultants Subjective Date of service: 06/10/18 Principal diagnosis: Acute hypoxemic Resp failure; Acute tor. PE; CMOP; Obesity; Lung mass; ERIC Interval history: Patient is seen today for: Acute hypoxemic respiratory failure; Acute bilateral pulmonary embolus with saddle embolism; Cardiomyopathy with evidence of right heart strain; Obesity; Lung mass/nodule. Seen and examined at bedside; 24hour events reviewed; nursing and respiratory care staff consulted; no adverse overnight events reported to me; remains on supplemental oxygen at 4L NC; denies acute chest pains; no hemoptysis; no emesis or overt aspiration; family visiting; s/pEKOS catheter removal. He was able to ambulate with PT today. Objective Vital Signs - 12hr 06/09/18 06/10/18 06/10/18 23:52 04:19 07:53 Temperature 98.2 F 98.2 F 98.5 F Pulse Rate 78 65 59 L Respiratory 18 18 19 Rate Blood Pressure 117/77 99/52 Blood Pressure 98/45 [Left] O2 Sat by Pulse 93 93 94 Oximetry Constitutional: no acute distress, alert Eyes: non-icteric ENT: oropharynx moist, other (Mallampati 3) Neck: supple, no lymphadenopathy, no JVD, other (large neck circumference) Effort: mildly labored Ascultation: Bilateral: diminished breath sounds, rhonchi Percussion: Bilateral: not dull Cardiovascular: regular rate and rhythm Gastrointestinal: normoactive bowel sounds, soft, non-tender, non-distended Integumentary: normal Extremities: no cyanosis, pulses normal, no ischemia or petechiae, edema Neurologic: normal mental status, non-focal exam, pupils equal and round, motor strength normal and, other (weak) Psychiatric: mood appropriate, affect normal CBC and BMP: 06/09/18 07:52 06/10/18 04:26 ABG, PT/INR, D-dimer: PT/INR, D-dimer PT 23.9 Sec. (12.2-14.9) H 06/10/18 04:26 INR 2.09 (0.87-1.13) H 06/10/18 04:26 D-Dimer 4730.92 ng/mlDDU (0-234) H 06/05/18 21:14 Abnormal lab findings: Abnormal Labs 06/05/18 06/05/18 06/05/18 20:15 20:15 21:14 WBC RBC Hgb 15.6 H Hct 47.0 H MCV Plt Count 125 L Lymph % (Auto) [place] % (Auto) 9.8 H Eos % (Auto) PT INR APTT D-Dimer 4730.92 H Heparin Anti-Xa Level Chloride Carbon Dioxide 18 L Creatinine 1.7 H Glucose 149 H Calcium NT-Pro-B Natriuret Pep PTH Intact 06/05/18 06/05/18 06/05/18 21:14 22:46 22:46 WBC RBC Hgb Hct MCV Plt Count 102 L Lymph % (Auto) [place] % (Auto) Eos % (Auto) PT 16.1 H INR 1.25 H APTT D-Dimer Heparin Anti-Xa Level Chloride Carbon Dioxide Creatinine Glucose Calcium NT-Pro-B Natriuret Pep 4306 H PTH Intact 06/06/18 06/06/18 06/06/18 06:20 06:20 09:59 WBC RBC 5.27 H Hgb 16.3 H Hct 49.8 H D MCV 95 H Plt Count 85 L Lymph % (Auto) [place] % (Auto) Eos % (Auto) PT 15.8 H INR 1.22 H APTT D-Dimer Heparin Anti-Xa Level 1.10 H Chloride 107.4 H Carbon Dioxide 20 L Creatinine Glucose 113 H Calcium 8.2 L NT-Pro-B Natriuret Pep PTH Intact 06/06/18 06/06/18 06/06/18 09:59 09:59 13:35 WBC RBC Hgb Hct MCV Plt Count Lymph % (Auto) [place] % (Auto) Eos % (Auto) PT 15.0 H INR 1.14 H APTT 37.7 H D-Dimer Heparin Anti-Xa Level 1.45 H Chloride Carbon Dioxide Creatinine Glucose 138 H Calcium 8.3 L NT-Pro-B Natriuret Pep PTH Intact 06/06/18 06/06/18 06/06/18 13:35 18:02 18:02 WBC RBC Hgb Hct 45.9 H MCV Plt Count 103 L Lymph % (Auto) [place] % (Auto) 9.1 H Eos % (Auto) PT INR APTT D-Dimer Heparin Anti-Xa Level 1.32 H Chloride Carbon Dioxide 21 L Creatinine Glucose 113 H Calcium NT-Pro-B Natriuret Pep PTH Intact 06/06/18 06/06/18 06/07/18 22:46 22:46 04:56 WBC 4.2 L RBC Hgb Hct MCV 95 H Plt Count 110 L 88 L Lymph % (Auto) 35.4 H 35.9 H [place] % (Auto) 9.9 H 9.6 H Eos % (Auto) PT INR APTT D-Dimer Heparin Anti-Xa Level < 0.10 L Chloride Carbon Dioxide Creatinine Glucose Calcium NT-Pro-B Natriuret Pep PTH Intact 06/07/18 06/07/18 06/07/18 04:56 04:56 04:56 WBC RBC Hgb Hct MCV Plt Count Lymph % (Auto) [place] % (Auto) Eos % (Auto) PT INR APTT D-Dimer Heparin Anti-Xa Level < 0.10 L Chloride 107.7 H Carbon Dioxide Creatinine Glucose 106 H Calcium 8.3 L NT-Pro-B Natriuret Pep PTH Intact 133.4 H 06/08/18 06/08/18 06/08/18 00:31 04:45 04:45 WBC RBC Hgb Hct MCV Plt Count 91 L Lymph % (Auto) [place] % (Auto) 8.7 H Eos % (Auto) 4.4 H PT 17.3 H INR 1.37 H APTT D-Dimer Heparin Anti-Xa Level 0.79 H Chloride Carbon Dioxide Creatinine Glucose Calcium NT-Pro-B Natriuret Pep PTH Intact 06/08/18 06/09/18 06/09/18 09:59 07:52 07:52 WBC RBC Hgb Hct MCV Plt Count 102 L Lymph % (Auto) [place] % (Auto) Eos % (Auto) PT 20.8 H INR 1.74 H APTT D-Dimer Heparin Anti-Xa Level Chloride 107.2 H Carbon Dioxide Creatinine Glucose 111 H Calcium NT-Pro-B Natriuret Pep PTH Intact 06/10/18 06/10/18 04:26 04:26 WBC RBC Hgb Hct MCV Plt Count Lymph % (Auto) [place] % (Auto) Eos % (Auto) PT 23.9 H INR 2.09 H APTT D-Dimer Heparin Anti-Xa Level Chloride Carbon Dioxide Creatinine Glucose 115 H Calcium NT-Pro-B Natriuret Pep PTH Intact Allied health notes reviewed: nursing (patient had heparin stopped and coumading initiated. He needs bridge therapy)
[2018-06-10] MEDS: ZYLOPRIM PO SCH ×2 (11:02→22:02)
[2018-06-10] MEDS: ZESTRIL PO SCH (11:02)
[2018-06-10] MEDS: PEPCID PO SCH ×2 (11:02→22:01)
[2018-06-10] MEDS: NEURONTIN PO SCH ×2 (11:02→22:01)
[2018-06-10] MEDS: ROBAXIN PO SCH ×2 (11:02→22:02)
[2018-06-10] MEDS: NORVASC PO SCH (11:02)
[2018-06-10] MEDS: TIMOLOL OU SCH ×2 (11:04→22:04)
[2018-06-10] MEDS: DORZOLAMIDE OU SCH ×2 (11:04→22:04)
[2018-06-10] MEDS: BRIMONIDINE 0.2% OU SCH ×3 (11:04→22:05)
--- NOTE | 2018-06-10 12:15 | Progress Note ---
Assessment and Plan Acute Kidney Injury possibly prerenal, DENNY, possible underlying CKD, NSAIDs use - Renal function improving, serum creatinine trend down to 1.1 today, non- oliguric - Renal ultrasound- Left renal cyst. No solid mass, stones or hydronephrosis - Renally dose medications - S/p CTA chest IV contrast on 06/05/18 - Avoid NSAIDs - Monitor I/O's - Continue to monitor renal function Acute Bilateral Pulmonary Embolism: -Vascular surgery consulted for massive pulmonary embolism with saddle embolus and right heart strain. S/p pharmacal mechanical thrombolysis with bilateral ---Pulmonary artery EKOS placement, pulmonary angiogram on 06/06/18 -On Heparin drip and Warfarin Essential Hypertension: - On Amlodipine - Adjust meds as needed Subjective Date of service: 06/10/18 Principal diagnosis: Acute hypoxemic Resp failure; Acute tor. PE; CMOP; Obesity; Lung mass; ERIC Interval history: Patient seen sitting up in bed. Reviewed renal labs with patient. No family at bedside. Objective - Vital Signs Vital signs: Vital Signs - 12hr 06/10/18 06/10/18 06/10/18 04:19 07:53 10:00 Temperature 98.2 F 98.5 F Pulse Rate 65 59 L Respiratory 18 19 Rate Blood Pressure 99/52 Blood Pressure 98/45 [Left] O2 Sat by Pulse 93 94 94 Oximetry - General Appearance General appearance: well-developed, appears stated age EENT: ATNC, PERRL, hearing intact, vision intact Neck: no JVD, supple Respiratory: Present: Clear to Ascultation Cardiology: regular, S1S2 Gastrointestinal: normoactive bowel sounds Integumentary: warm and dry Neurologic: alert and oriented x3 Musculoskeletal: other (trace edema) Psychiatric: cooperative - Lab 06/09/18 07:52 06/10/18 04:26 Most recent lab results Calcium 8.7 mg/dL (8.4-10.2) 06/10/18 04:26 Phosphorus 3.70 mg/dL (2.5-4.5) 06/07/18 04:56 Magnesium 1.80 mg/dL (1.7-2.3) 06/07/18 04:56 Medications & Allergies - Medications Allergies/Adverse Reactions: Allergies No Known Allergies Allergy (Verified 08/23/14 08:28) Home Medications: Home Medications Medication Instructions Recorded Confirmed Last Taken Type Allopurinol [Zyloprim] 300 mg PO BID 06/05/18 06/05/18 06/05/18 History Aspirin [Adult Low Dose Aspirin EC] 81 mg PO DAILY 06/05/18 06/05/18 06/05/18 History Brimonidine 0.15% [Alphagan P 1 drops OP Q8H 06/05/18 06/05/18 Unknown History 0.15%] Dorzolamide HCl/Timolol Maleat 10 ml OP BID 06/05/18 06/05/18 06/05/18 History [Dorzolamide-Timolol Eye Drops] Furosemide [Lasix TAB] 40 mg PO DAILY 06/05/18 06/05/18 06/05/18 History Gabapentin [Neurontin] 300 mg PO BID 06/05/18 06/05/18 06/05/18 History Ibuprofen [Ibu] 800 mg PO Q8H PRN 06/05/18 06/05/18 Unknown History Latanoprost/Pf [Latanoprost 0.005% 7.5 ml OP QHS 06/05/18 06/05/18 06/04/18 History Eye Drop] Lisinopril 40 mg PO DAILY 06/05/18 06/05/18 06/05/18 History Rosuvastatin (Nf) [Crestor] 20 mg PO DAILY 06/05/18 06/05/18 06/05/18 History Silver Sulfadiazine [Silvadene] 50 gm TP DAILY 06/05/18 06/05/18 06/05/18 History amLODIPine [Norvasc] 10 mg PO DAILY 06/05/18 06/05/18 06/05/18 History methOCARBAMOL [Robaxin TAB] 500 mg PO BID 06/05/18 06/05/18 06/05/18 History Active Medications: Generic Name Dose Route Start Last Admin Trade Name Freq PRN Reason Stop Dose Admin Acetaminophen 650 mg 06/06/18 00:28 Tylenol PO Q4H PRN Fever >101 Acetaminophen/Hydrocodone Bitart 2 each 06/06/18 11:40 06/06/18 22:20 Jansen 5/325 PO 2 each Q6H PRN Administration Pain, Moderate (4-6) Albuterol 2.5 mg 06/06/18 00:32 Proventil IH Q6HRT PRN Shortness Of Breath Allopurinol 300 mg 06/06/18 10:00 06/10/18 11:02 Zyloprim PO 300 mg BID MAX Administration Amlodipine Besylate 10 mg 06/06/18 10:00 06/10/18 11:02 Norvasc PO 10 mg DAILY MAX Administration Atorvastatin Calcium 40 mg 06/06/18 22:00 06/09/18 21:58 Lipitor PO 40 mg QHS MAX Administration Famotidine 20 mg 06/06/18 22:00 06/10/18 11:02 Pepcid PO 20 mg BID MAX Administration Gabapentin 300 mg 06/06/18 10:00 06/10/18 11:02 Neurontin PO 300 mg BID MAX Administration Guaifenesin 200 mg 06/06/18 00:27 06/07/18 04:35 Robitussin PO 200 mg Q4H PRN Administration Cough Heparin Sodium/Sodium Chloride 25,000 unit in 500 mls @ 30 mls/hr 06/05/18 23:00 06/10/18 06:48 Heparin/ 0.45% Nacl-25,000 Unit/500 Ml IV 1,400 units/hr TITR MAX 28 mls/hr Titration Protocol 1,500 UNITS/HR Latanoprost 1 drops 06/06/18 22:00 06/09/18 21:58 Latanoprost 0.005% OU 1 drops QHS MAX Administration Lisinopril 40 mg 06/06/18 10:00 06/10/18 11:02 Zestril PO 40 mg DAILY MAX Administration Methocarbamol 500 mg 06/06/18 10:00 06/10/18 11:02 Robaxin PO 500 mg BID MAX Administration Miscellaneous Medication 1 drop 06/07/18 14:00 06/10/18 11:04 Brimonidine 0.2% OU 1 drop TID MAX Administration Miscellaneous Medication 1 drop 06/08/18 10:00 06/10/18 11:04 Dorzolamide/Timolol OU 1 drop BID MAX Administration Morphine Sulfate 2 mg 06/06/18 13:03 Morphine IV Q4H PRN Pain , Moderate Morphine Sulfate 4 mg 06/06/18 11:40 06/08/18 16:47 Morphine IV 4 mg Q4H PRN Administration Pain , Severe (7-10) Ondansetron HCl 4 mg 06/06/18 11:40 06/07/18 13:15 Zofran IV 4 mg Q8H PRN Administration Nausea And Vomiting Silver Sulfadiazine 1 applic 06/06/18 10:00 06/09/18 15:29 Thermazene 50 Gram TP 1 applic DAILY MAX Administration Temazepam 15 mg 06/06/18 00:31 Restoril PO QHS PRN Insomnia Warfarin Sodium 10 mg 06/06/18 17:00 06/09/18 18:50 Coumadin PO 10 mg DAILY@1700 MAX Administration
--- NOTE | 2018-06-10 15:23 | Progress Note ---
Assessment and Plan Assessment and plan: Septal pulmonary embolus. Patient is doing well following thrombolytic therapy for his pulmonary embolism. This is his second major pulmonary embolism. He will need to remain on anticoagulation lifelong. Vascular surgery following. s/p removal of thrombolytics catheters, bilateral pulmonary angiog talon, IVC filter placement on 06/07/18. On heparin,Coumadin Hypertension. Continue current hypertensive medications. Acute kidney injury. Etiology likely secondary to vasomotor nephropathy/dehydration. Improved. Continue to follow BMP. Discussed with patient and sister at bedside. full code status History Interval history: Feels better, Less shortness of breath Hospitalist Physical - Physical exam Narrative exam: GEN: Not in acute distress, lying in bed, Obese HEENT: Normocephalic, atraumatic, Neck: supple, No JVD Lungs: Clear to auscultation bilaterally, no wheeze Heart:S1 and S2 regular, no murmurs, rubs or gallop, Abd:soft, non tender, non distended, normal bowel sounds Ext: No edema, no clubbing or cyanosis Neuro: Awake,alert, oriented x 3, No focal signs Psych:Normal mood - Constitutional Vitals: Temp Pulse Resp BP Pulse Ox 98.8 F 65 20 114/63 94 06/10/18 12:20 06/10/18 12:20 06/10/18 12:20 06/10/18 12:20 06/10/18 10:00 General appearance: Present: no acute distress Results - Labs CBC & Chem 7: 06/11/18 05:27 06/11/18 05:27 Labs: Laboratory Last Values WBC 5.5 K/mm3 (4.5-11.0) 06/08/18 04:45 RBC 4.36 M/mm3 (3.65-5.03) 06/08/18 04:45 Hgb 13.9 gm/dl (11.8-15.2) 06/09/18 07:52 Hct 41.0 % (35.5-45.6) 06/09/18 07:52 MCV 94 fl (84-94) 06/08/18 04:45 MCH 31 pg (28-32) 06/08/18 04:45 MCHC 33 % (32-34) 06/08/18 04:45 RDW 14.5 % (13.2-15.2) 06/08/18 04:45 Plt Count 102 K/mm3 (140-440) L 06/09/18 07:52 Lymph % (Auto) 27.0 % (13.4-35.0) 06/08/18 04:45 [place] % (Auto) 8.7 % (0.0-7.3) H 06/08/18 04:45 Eos % (Auto) 4.4 % (0.0-4.3) H 06/08/18 04:45 Baso % (Auto) 0.5 % (0.0-1.8) 06/08/18 04:45 Lymph # 1.5 K/mm3 (1.2-5.4) 06/08/18 04:45 [place] # 0.5 K/mm3 (0.0-0.8) 06/08/18 04:45 Eos # 0.2 K/mm3 (0.0-0.4) 06/08/18 04:45 Baso # 0.0 K/mm3 (0.0-0.1) 06/08/18 04:45 Seg Neutrophils % 59.4 % (40.0-70.0) 06/08/18 04:45 Seg Neutrophils # 3.3 K/mm3 (1.8-7.7) 06/08/18 04:45 PT 23.9 Sec. (12.2-14.9) H 06/10/18 04:26 INR 2.09 (0.87-1.13) H 06/10/18 04:26 APTT 37.7 Sec. (24.2-36.6) H 06/06/18 09:59 Fibrinogen 375 mg/dl (211-480) 06/07/18 04:56 D-Dimer 4730.92 ng/mlDDU (0-234) H 06/05/18 21:14 Heparin Anti-Xa Level 0.46 U.I./ml (0.3-0.7) 06/10/18 04:26 Sodium 141 mmol/L (137-145) 06/10/18 04:26 Potassium 4.1 mmol/L (3.6-5.0) 06/10/18 04:26 Chloride 105.2 mmol/L (98-107) 06/10/18 04:26 Carbon Dioxide 24 mmol/L (22-30) 06/10/18 04:26 Anion Gap 16 mmol/L 06/10/18 04:26 BUN 10 mg/dL (9-20) 06/10/18 04:26 Creatinine 1.1 mg/dL (0.8-1.5) 06/10/18 04:26 Estimated GFR > 60 ml/min 06/10/18 04:26 BUN/Creatinine Ratio 9 % 06/10/18 04:26 Glucose 115 mg/dL (75-100) H 06/10/18 04:26 Calcium 8.7 mg/dL (8.4-10.2) 06/10/18 04:26 Phosphorus 3.70 mg/dL (2.5-4.5) 06/07/18 04:56 Magnesium 1.80 mg/dL (1.7-2.3) 06/07/18 04:56 Total Creatine Kinase 65 units/L (55-170) 06/06/18 11:00 CK-MB (CK-2) 2.0 ng/mL (0.0-4.0) 06/06/18 11:00 CK-MB (CK-2) Rel Index 3.0 (0-4) 06/06/18 11:00 Troponin T < 0.010 ng/mL (0.00-0.029) 06/06/18 11:00 NT-Pro-B Natriuret Pep 4306 pg/mL (0-900) H 06/05/18 21:14 PTH Intact 133.4 pg/mL (15-65) H 06/07/18 04:56 Blood Type B POSITIVE 06/06/18 10:52 Antibody Screen Negative 06/06/18 10:52 Nutrition/Malnutrition Assess - Dietary Evaluation Nutrition/Malnutrition Findings: Nutrition Notes Start: 06/07/18 13:58 Freq: Status: Active Protocol: Document 06/08/18 15:27 REINALDO (Rec: 06/08/18 15:28 [email or web address] [email or web address]) Nutrition Notes Initial or Follow up Brief Note Subjective/Other Information Pt reports taking coumadin [employer] . He is familiar with high vit K foods. Denied need for additional DNI education. Nutrition Intervention Follow-Up By: 06/11/18 Additional Comments F/U: LOS
[2018-06-10] MEDS: THERMAZENE 50 GRAM TP SCH (16:16)
[2018-06-10] MEDS: COUMADIN PO SCH (18:00)
[2018-06-10] MEDS: LATANOPROST 0.005% OU SCH (22:04)
[2018-06-11 05:45] LABS: Hematocrit 39.6 % (35.5-45.6); Hemoglobin 13.2 gm/dl (11.8-15.2)
[2018-06-11 05:54] LABS: INR 2.34 (0.87-1.13)
[2018-06-11 06:10] LABS: BUN/Creatinine Ratio 10; Blood Urea Nitrogen 11 mg/dL (9-20); Calcium 8.7 mg/dL (8.4-10.2); Hemolysis Index 5
[2018-06-11] MEDS: BRIMONIDINE 0.2% OU SCH ×3 (08:20→21:43)
[2018-06-11] MEDS: ZYLOPRIM PO SCH ×2 (09:22→21:41)
[2018-06-11] MEDS: ROBAXIN PO SCH ×2 (09:22→21:40)
[2018-06-11] MEDS: NEURONTIN PO SCH ×2 (09:22→21:40)
[2018-06-11] MEDS: PEPCID PO SCH ×2 (09:22→21:41)
[2018-06-11] MEDS: ZESTRIL PO SCH (09:26)
[2018-06-11] MEDS: THERMAZENE 50 GRAM TP SCH (09:27)
[2018-06-11] MEDS: TIMOLOL OU SCH ×2 (10:00→21:43)
[2018-06-11] MEDS: DORZOLAMIDE OU SCH ×2 (10:00→21:43)
[2018-06-11] MEDS: NORVASC PO SCH (10:00)
[2018-06-11] MEDS ORDERED: ELIQUIS PO SCH (12:00)
--- NOTE | 2018-06-11 12:48 | Progress Note ---
Assessment and Plan Acute Kidney Injury possibly prerenal, DENNY, possible underlying CKD, NSAIDs use - resolved - Renal ultrasound- Left renal cyst. No solid mass, stones or hydronephrosis - Renally dose medications - S/p CTA chest IV contrast on 06/05/18 - Avoid NSAIDs - Monitor I/O's - Continue to monitor renal function Acute Bilateral Pulmonary Embolism: -Vascular surgery consulted for massive pulmonary embolism with saddle embolus and right heart strain. S/p pharmacal mechanical thrombolysis with bilateral ---Pulmonary artery EKOS placement, pulmonary angiogram on 06/06/18 Essential Hypertension: - On Amlodipine - Adjust meds as needed will sign off, please re consult if needed Subjective Date of service: 06/11/18 Principal diagnosis: Acute hypoxemic Resp failure; Acute tor. PE; CMOP; Obesity; Lung mass; ERIC Interval history: comfortable, denies acute issues Objective - Vital Signs Vital signs: Vital Signs - 12hr 06/11/18 06/11/18 06/11/18 00:49 03:56 08:34 Temperature 98.3 F 97.9 F Pulse Rate 61 61 57 L Respiratory 20 18 18 Rate Blood Pressure 114/69 110/64 98/53 Blood Pressure [Right] O2 Sat by Pulse 95 94 96 Oximetry 06/11/18 08:38 Temperature 97.6 F Pulse Rate 60 Respiratory 18 Rate Blood Pressure Blood Pressure 138/85 [Right] O2 Sat by Pulse 95 Oximetry - General Appearance General appearance: well-developed, well-nourished, appears stated age EENT: ATNC, PERRL, mucous membranes moist Neck: no JVD, no carotid bruit Respiratory: Present: Clear to Ascultation. Absent: Rales, Ronchi Cardiology: regular, S1S2 Gastrointestinal: normoactive bowel sounds, no tenderness, no distended Integumentary: no rash, warm and dry Neurologic: no focal deficit, no asterixis, alert and oriented x3 Musculoskeletal: other (no edema in BLE) Psychiatric: mood/affect appropriate, cooperative - Lab 06/11/18 05:27 06/11/18 05:27 Most recent lab results Calcium 8.7 mg/dL (8.4-10.2) 06/11/18 05:27 Phosphorus 3.70 mg/dL (2.5-4.5) 06/07/18 04:56 Magnesium 1.80 mg/dL (1.7-2.3) 06/07/18 04:56 Medications & Allergies - Medications Allergies/Adverse Reactions: Allergies lactose Adverse Reaction (Verified 06/11/18 10:48) Unknown Home Medications: Home Medications Medication Instructions Recorded Confirmed Last Taken Type Allopurinol [Zyloprim] 300 mg PO BID 06/05/18 06/05/18 06/05/18 History Aspirin [Adult Low Dose Aspirin EC] 81 mg PO DAILY 06/05/18 06/05/18 06/05/18 History Brimonidine 0.15% [Alphagan P 1 drops OP Q8H 06/05/18 06/05/18 Unknown History 0.15%] Dorzolamide HCl/Timolol Maleat 10 ml OP BID 06/05/18 06/05/18 06/05/18 History [Dorzolamide-Timolol Eye Drops] Furosemide [Lasix TAB] 40 mg PO DAILY 06/05/18 06/05/18 06/05/18 History Gabapentin [Neurontin] 300 mg PO BID 06/05/18 06/05/18 06/05/18 History Ibuprofen [Ibu] 800 mg PO Q8H PRN 06/05/18 06/05/18 Unknown History Latanoprost/Pf [Latanoprost 0.005% 7.5 ml OP QHS 06/05/18 06/05/18 06/04/18 History Eye Drop] Lisinopril 40 mg PO DAILY 06/05/18 06/05/18 06/05/18 History Rosuvastatin (Nf) [Crestor] 20 mg PO DAILY 06/05/18 06/05/18 06/05/18 History Silver Sulfadiazine [Silvadene] 50 gm TP DAILY 06/05/18 06/05/18 06/05/18 History amLODIPine [Norvasc] 10 mg PO DAILY 06/05/18 06/05/18 06/05/18 History methOCARBAMOL [Robaxin TAB] 500 mg PO BID 06/05/18 06/05/18 06/05/18 History Active Medications: Generic Name Dose Route Start Last Admin Trade Name Freq PRN Reason Stop Dose Admin Acetaminophen 650 mg 06/06/18 00:28 Tylenol PO Q4H PRN Fever >101 Acetaminophen/Hydrocodone Bitart 2 each 06/06/18 11:40 06/10/18 18:00 [place] 5/325 PO 2 each Q6H PRN Administration Pain, Moderate (4-6) Albuterol 2.5 mg 06/06/18 00:32 Proventil IH Q6HRT PRN Shortness Of Breath Allopurinol 300 mg 06/06/18 10:00 06/11/18 09:22 Zyloprim PO 300 mg BID MAX Administration Amlodipine Besylate 10 mg 06/06/18 10:00 06/10/18 11:02 Norvasc PO 10 mg DAILY MAX Administration Atorvastatin Calcium 40 mg 06/06/18 22:00 06/10/18 22:01 Lipitor PO 40 mg QHS MAX Administration Famotidine 20 mg 06/06/18 22:00 06/11/18 09:22 Pepcid PO 20 mg BID MAX Administration Gabapentin 300 mg 06/06/18 10:00 06/11/18 09:22 Neurontin PO 300 mg BID MAX Administration Guaifenesin 200 mg 06/06/18 00:27 06/07/18 04:35 Robitussin PO 200 mg Q4H PRN Administration Cough Latanoprost 1 drops 06/06/18 22:00 06/10/18 22:04 Latanoprost 0.005% OU 1 drops QHS MAX Administration Lisinopril 40 mg 06/06/18 10:00 06/11/18 09:26 Zestril PO Not Given DAILY [facility] Methocarbamol 500 mg 06/06/18 10:00 06/11/18 09:22 Robaxin PO 500 mg BID MAX Administration Miscellaneous Medication 1 drop 06/07/18 14:00 06/11/18 08:20 Brimonidine 0.2% OU 1 drop TID MAX Administration Miscellaneous Medication 1 drop 06/08/18 10:00 06/10/18 22:04 Dorzolamide/Timolol OU 1 drop BID MAX Administration Morphine Sulfate 2 mg 06/06/18 13:03 Morphine IV Q4H PRN Pain , Moderate Morphine Sulfate 4 mg 06/06/18 11:40 06/08/18 16:47 Morphine IV 4 mg Q4H PRN Administration Pain , Severe (7-10) Ondansetron HCl 4 mg 06/06/18 11:40 06/07/18 13:15 Zofran IV 4 mg Q8H PRN Administration Nausea And Vomiting Silver Sulfadiazine 1 applic 06/06/18 10:00 06/11/18 09:27 Thermazene 50 Gram TP 1 applic DAILY MAX Administration Temazepam 15 mg 06/06/18 00:31 Restoril PO QHS PRN Insomnia
[2018-06-11] MEDS: NORCO 5/325 PO PRN (15:19)
[2018-06-11] MEDS: LATANOPROST 0.005% OU SCH (21:42)
[2018-06-12 07:29] LABS: INR 2.12 (0.87-1.13)
[2018-06-12] MEDS: ZYLOPRIM PO SCH (11:15)
[2018-06-12] MEDS: PEPCID PO SCH (11:15)
[2018-06-12] MEDS: ROBAXIN PO SCH (11:15)
[2018-06-12] MEDS: NORVASC PO SCH (11:15)
[2018-06-12] MEDS: NEURONTIN PO SCH (11:15)
[2018-06-12] MEDS: ZESTRIL PO SCH (11:16)
[2018-06-12] MEDS: THERMAZENE 50 GRAM TP SCH (11:17)
[2018-06-12] MEDS: BRIMONIDINE 0.2% OU SCH ×2 (11:18→14:15)
[2018-06-12] MEDS: DORZOLAMIDE OU SCH (11:20)
[2018-06-12] MEDS: TIMOLOL OU SCH (11:20)
--- NOTE | 2018-06-12 12:55 | Consultation ---
History of Present Illness Consult date: 06/12/18 Requesting physician: SALBADOR CHRISTENSEN Reason for consult: pulmonary embolism History of present illness: 63 y/o male, followed by Cristhian admitted with saddle PE s/p ekos therapy. Unfortunately, this is the patient's second clot. Original was in . Had been following with Dr. Garcia. There were plans to start weaning from anticoagulation. Patient ran out of therapy and just stopped, then developed clot. Currently awake and alert, on room air eating lunch with no acute pulmonary complaints. He is suppose to be on 2 liters based on charting. Past History Past Medical History: DVT, hypertension, pulmonary embolism Medications and Allergies Allergies Allergy/AdvReac Type Severity Reaction Status Date / Time lactose AdvReac Unknown Verified 06/11/18 10:48 Home Medications Medication Instructions Recorded Confirmed Last Taken Type Allopurinol [Zyloprim] 300 mg PO BID 06/05/18 06/05/18 06/05/18 History Aspirin [Adult Low Dose Aspirin EC] 81 mg PO DAILY 06/05/18 06/05/18 06/05/18 History Brimonidine 0.15% [Alphagan P 1 drops OP Q8H 06/05/18 06/05/18 Unknown History 0.15%] Dorzolamide HCl/Timolol Maleat 10 ml OP BID 06/05/18 06/05/18 06/05/18 History [Dorzolamide-Timolol Eye Drops] Furosemide [Lasix TAB] 40 mg PO DAILY 06/05/18 06/05/18 06/05/18 History Gabapentin [Neurontin] 300 mg PO BID 06/05/18 06/05/18 06/05/18 History Ibuprofen [Ibu] 800 mg PO Q8H PRN 06/05/18 06/05/18 Unknown History Latanoprost/Pf [Latanoprost 0.005% 7.5 ml OP QHS 06/05/18 06/05/18 06/04/18 History Eye Drop] Lisinopril 40 mg PO DAILY 06/05/18 06/05/18 06/05/18 History Rosuvastatin (Nf) [Crestor] 20 mg PO DAILY 06/05/18 06/05/18 06/05/18 History Silver Sulfadiazine [Silvadene] 50 gm TP DAILY 06/05/18 06/05/18 06/05/18 History amLODIPine [Norvasc] 10 mg PO DAILY 06/05/18 06/05/18 06/05/18 History methOCARBAMOL [Robaxin TAB] 500 mg PO BID 06/05/18 06/05/18 06/05/18 History Active Meds: Active Medications Acetaminophen (Tylenol) 650 mg PO Q4H PRN PRN Reason: Fever >101 Acetaminophen/Hydrocodone Bitart (Piffard 5/325) 2 each PO Q6H PRN PRN Reason: Pain, Moderate (4-6) Last Admin: 06/11/18 15:19 Dose: 2 each Documented by: Albuterol (Proventil) 2.5 mg IH Q6HRT PRN PRN Reason: Shortness Of Breath Allopurinol (Zyloprim) 300 mg PO BID [facility] Last Admin: 06/12/18 11:15 Dose: 300 mg Documented by: Amlodipine Besylate (Norvasc) 10 mg PO DAILY [facility] Last Admin: 06/12/18 11:15 Dose: Not Given Documented by: Atorvastatin Calcium (Lipitor) 40 mg PO QHS [facility] Last Admin: 06/11/18 21:40 Dose: 40 mg Documented by: Famotidine (Pepcid) 20 mg PO BID [facility] Last Admin: 06/12/18 11:15 Dose: 20 mg Documented by: Gabapentin (Neurontin) 300 mg PO BID [facility] Last Admin: 06/12/18 11:15 Dose: 300 mg Documented by: Guaifenesin (Robitussin) 200 mg PO Q4H PRN PRN Reason: Cough Last Admin: 06/07/18 04:35 Dose: 200 mg Documented by: Latanoprost (Latanoprost 0.005%) 1 drops OU QHS [facility] Last Admin: 06/11/18 21:42 Dose: 1 drops Documented by: Lisinopril (Zestril) 40 mg PO DAILY [facility] Last Admin: 06/12/18 11:16 Dose: Not Given Documented by: Methocarbamol (Robaxin) 500 mg PO BID [facility] Last Admin: 06/12/18 11:15 Dose: 500 mg Documented by: Miscellaneous Medication (Brimonidine 0.2%) 1 drop OU TID [facility] Last Admin: 06/12/18 11:18 Dose: 1 drop Documented by: Miscellaneous Medication (Dorzolamide/Timolol) 1 drop OU BID [facility] Last Admin: 06/12/18 11:20 Dose: 1 drop Documented by: Morphine Sulfate (Morphine) 2 mg IV Q4H PRN PRN Reason: Pain , Moderate Morphine Sulfate (Morphine) 4 mg IV Q4H PRN PRN Reason: Pain , Severe (7-10) Last Admin: 06/08/18 16:47 Dose: 4 mg Documented by: Ondansetron HCl (Zofran) 4 mg IV Q8H PRN PRN Reason: Nausea And Vomiting Last Admin: 06/07/18 13:15 Dose: 4 mg Documented by: Silver Sulfadiazine (Thermazene 50 Gram) 1 applic TP DAILY [facility] Last Admin: 06/12/18 11:17 Dose: 1 applic Documented by: Temazepam (Restoril) 15 mg PO QHS PRN PRN Reason: Insomnia Review of Systems All systems: negative Physical Examination Vital signs: Vital Signs Temp Pulse Resp BP Pulse Ox 98.7 F 100 H 20 91/62 89 06/05/18 20:03 06/05/18 20:03 06/05/18 20:03 06/05/18 20:03 06/05/18 20:03 General appearance: no acute distress, alert Eyes: non-icteric ENT: oropharynx moist Neck: supple Effort: normal Ascultation: Bilateral: clear Percussion: Bilateral: not dull Tactile fremitus: Bilateral: normal Cardiovascular: regular rate and rhythm Gastrointestinal: normoactive bowel sounds, non-tender, non-distended Extremities: no edema, pink and warm, pulses normal normal mental status, non-focal exam mood appropriate Results - Laboratory Findings CBC and BMP: 06/11/18 05:27 06/11/18 05:27 PT/INR, D-dimer PT 24.1 Sec. (12.2-14.9) H 06/12/18 06:06 INR 2.12 (0.87-1.13) H 06/12/18 06:06 D-Dimer 4730.92 ng/mlDDU (0-234) H 06/05/18 21:14 Abnormal lab findings: Abnormal Labs 06/05/18 06/05/18 06/05/18 20:15 20:15 21:14 WBC RBC Hgb 15.6 H Hct 47.0 H MCV Plt Count 125 L Lymph % (Auto) Taylor % (Auto) 9.8 H Eos % (Auto) PT INR APTT D-Dimer 4730.92 H Heparin Anti-Xa Level Chloride Carbon Dioxide 18 L Creatinine 1.7 H Glucose 149 H Calcium NT-Pro-B Natriuret Pep PTH Intact 06/05/18 06/05/18 06/05/18 21:14 22:46 22:46 WBC RBC Hgb Hct MCV Plt Count 102 L Lymph % (Auto) Taylor % (Auto) Eos % (Auto) PT 16.1 H INR 1.25 H APTT D-Dimer Heparin Anti-Xa Level Chloride Carbon Dioxide Creatinine Glucose Calcium NT-Pro-B Natriuret Pep 4306 H PTH Intact 06/06/18 06/06/18 06/06/18 06:20 06:20 09:59 WBC RBC 5.27 H Hgb 16.3 H Hct 49.8 H D MCV 95 H Plt Count 85 L Lymph % (Auto) Taylor % (Auto) Eos % (Auto) PT 15.8 H INR 1.22 H APTT D-Dimer Heparin Anti-Xa Level 1.10 H Chloride 107.4 H Carbon Dioxide 20 L Creatinine Glucose 113 H Calcium 8.2 L NT-Pro-B Natriuret Pep PTH Intact 06/06/18 06/06/18 06/06/18 09:59 09:59 13:35 WBC RBC Hgb Hct MCV Plt Count Lymph % (Auto) Taylor % (Auto) Eos % (Auto) PT 15.0 H INR 1.14 H APTT 37.7 H D-Dimer Heparin Anti-Xa Level 1.45 H Chloride Carbon Dioxide Creatinine Glucose 138 H Calcium 8.3 L NT-Pro-B Natriuret Pep PTH Intact 06/06/18 06/06/18 06/06/18 13:35 18:02 18:02 WBC RBC Hgb Hct 45.9 H MCV Plt Count 103 L Lymph % (Auto) Taylor % (Auto) 9.1 H Eos % (Auto) PT INR APTT D-Dimer Heparin Anti-Xa Level 1.32 H Chloride Carbon Dioxide 21 L Creatinine Glucose 113 H Calcium NT-Pro-B Natriuret Pep PTH Intact 06/06/18 06/06/18 06/07/18 22:46 22:46 04:56 WBC 4.2 L RBC Hgb Hct MCV 95 H Plt Count 110 L 88 L Lymph % (Auto) 35.4 H 35.9 H Taylor % (Auto) 9.9 H 9.6 H Eos % (Auto) PT INR APTT D-Dimer Heparin Anti-Xa Level < 0.10 L Chloride Carbon Dioxide Creatinine Glucose Calcium NT-Pro-B Natriuret Pep PTH Intact 06/07/18 06/07/18 06/07/18 04:56 04:56 04:56 WBC RBC Hgb Hct MCV Plt Count Lymph % (Auto) Taylor % (Auto) Eos % (Auto) PT INR APTT D-Dimer Heparin Anti-Xa Level < 0.10 L Chloride 107.7 H Carbon Dioxide Creatinine Glucose 106 H Calcium 8.3 L NT-Pro-B Natriuret Pep PTH Intact 133.4 H 06/08/18 06/08/18 06/08/18 00:31 04:45 04:45 WBC RBC Hgb Hct MCV Plt Count 91 L Lymph % (Auto) Taylor % (Auto) 8.7 H Eos % (Auto) 4.4 H PT 17.3 H INR 1.37 H APTT D-Dimer Heparin Anti-Xa Level 0.79 H Chloride Carbon Dioxide Creatinine Glucose Calcium NT-Pro-B Natriuret Pep PTH Intact 06/08/18 06/09/18 06/09/18 09:59 07:52 07:52 WBC RBC Hgb Hct MCV Plt Count 102 L Lymph % (Auto) Taylor % (Auto) Eos % (Auto) PT 20.8 H INR 1.74 H APTT D-Dimer Heparin Anti-Xa Level Chloride 107.2 H Carbon Dioxide Creatinine Glucose 111 H Calcium NT-Pro-B Natriuret Pep PTH Intact 06/10/18 06/10/18 06/11/18 04:26 04:26 05:27 WBC RBC Hgb Hct MCV Plt Count 123 L Lymph % (Auto) Taylor % (Auto) Eos % (Auto) PT 23.9 H INR 2.09 H APTT D-Dimer Heparin Anti-Xa Level Chloride Carbon Dioxide Creatinine Glucose 115 H Calcium NT-Pro-B Natriuret Pep PTH Intact 06/11/18 06/11/18 06/12/18 05:27 05:27 06:06 WBC RBC Hgb Hct MCV Plt Count Lymph % (Auto) Taylor % (Auto) Eos % (Auto) PT 26.0 H 24.1 H INR 2.34 H 2.12 H APTT D-Dimer Heparin Anti-Xa Level Chloride 107.3 H Carbon Dioxide Creatinine Glucose 114 H Calcium NT-Pro-B Natriuret Pep PTH Intact Assessment and Plan 63 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 Will discuss with primary team. Old notes state that the patient is on IV heparin but this is not on the mar either 2. Supplemental O2, wean as tolerated Will continue to follow
--- NOTE | 2018-06-12 14:45 | Progress Note ---
Assessment and Plan Assessment and plan: Septal pulmonary embolus. Patient is doing well following thrombolytic therapy for his pulmonary embolism. This is his second major pulmonary embolism. He will need to remain on anticoagulation lifelong. Vascular surgery following. s/p removal of thrombolytics catheters, bilateral pulmonary angiog talon, IVC filter placement on 06/07/18. Off heparin. INR 2.34 therapeutic Will switch to Eliquis. I discussed with Pharmacist and he recommends starting Eliquis when INR<2 Hypertension. Continue current hypertensive medications. Acute kidney injury. Resolved. Etiology likely secondary to vasomotor nephropathy/dehydration. Improved. Continue to follow BMP. Discussed with patient. full code status History Interval history: Feels better, Less shortness of breath no chest pain Hospitalist Physical - Physical exam Narrative exam: GEN: Not in acute distress, lying in bed, Obese HEENT: Normocephalic, atraumatic, Neck: supple, No JVD Lungs: Clear to auscultation bilaterally, no wheeze Heart:S1 and S2 regular, no murmurs, rubs or gallop, Abd:soft, non tender, non distended, normal bowel sounds Ext: No edema, no clubbing or cyanosis Neuro: Awake,alert, oriented x 3, No focal signs Psych:Normal mood - Constitutional Vitals: Temp Pulse Resp BP Pulse Ox 98.1 F 60 16 116/66 96 06/12/18 11:44 06/12/18 11:44 06/12/18 11:44 06/12/18 11:44 06/12/18 11:44 General appearance: Present: no acute distress Results - Labs CBC & Chem 7: 06/11/18 05:27 06/11/18 05:27 Labs: Laboratory Last Values WBC 5.5 K/mm3 (4.5-11.0) 06/08/18 04:45 RBC 4.36 M/mm3 (3.65-5.03) 06/08/18 04:45 Hgb 13.2 gm/dl (11.8-15.2) 06/11/18 05:27 Hct 39.6 % (35.5-45.6) 06/11/18 05:27 MCV 94 fl (84-94) 06/08/18 04:45 MCH 31 pg (28-32) 06/08/18 04:45 MCHC 33 % (32-34) 06/08/18 04:45 RDW 14.5 % (13.2-15.2) 06/08/18 04:45 Plt Count 123 K/mm3 (140-440) L 06/11/18 05:27 Lymph % (Auto) 27.0 % (13.4-35.0) 06/08/18 04:45 Maverick % (Auto) 8.7 % (0.0-7.3) H 06/08/18 04:45 Eos % (Auto) 4.4 % (0.0-4.3) H 06/08/18 04:45 Baso % (Auto) 0.5 % (0.0-1.8) 06/08/18 04:45 Lymph # 1.5 K/mm3 (1.2-5.4) 06/08/18 04:45 Maverick # 0.5 K/mm3 (0.0-0.8) 06/08/18 04:45 Eos # 0.2 K/mm3 (0.0-0.4) 06/08/18 04:45 Baso # 0.0 K/mm3 (0.0-0.1) 06/08/18 04:45 Seg Neutrophils % 59.4 % (40.0-70.0) 06/08/18 04:45 Seg Neutrophils # 3.3 K/mm3 (1.8-7.7) 06/08/18 04:45 PT 24.1 Sec. (12.2-14.9) H 06/12/18 06:06 INR 2.12 (0.87-1.13) H 06/12/18 06:06 APTT 37.7 Sec. (24.2-36.6) H 06/06/18 09:59 Fibrinogen 375 mg/dl (211-480) 06/07/18 04:56 D-Dimer 4730.92 ng/mlDDU (0-234) H 06/05/18 21:14 Heparin Anti-Xa Level 0.46 U.I./ml (0.3-0.7) 06/10/18 04:26 Sodium 142 mmol/L (137-145) 06/11/18 05:27 Potassium 4.1 mmol/L (3.6-5.0) 06/11/18 05:27 Chloride 107.3 mmol/L (98-107) H 06/11/18 05:27 Carbon Dioxide 25 mmol/L (22-30) 06/11/18 05:27 Anion Gap 14 mmol/L 06/11/18 05:27 BUN 11 mg/dL (9-20) 06/11/18 05:27 Creatinine 1.1 mg/dL (0.8-1.5) 06/11/18 05:27 Estimated GFR > 60 ml/min 06/11/18 05:27 BUN/Creatinine Ratio 10 % 06/11/18 05:27 Glucose 114 mg/dL (75-100) H 06/11/18 05:27 Calcium 8.7 mg/dL (8.4-10.2) 06/11/18 05:27 Phosphorus 3.70 mg/dL (2.5-4.5) 06/07/18 04:56 Magnesium 1.80 mg/dL (1.7-2.3) 06/07/18 04:56 Total Creatine Kinase 65 units/L (55-170) 06/06/18 11:00 CK-MB (CK-2) 2.0 ng/mL (0.0-4.0) 06/06/18 11:00 CK-MB (CK-2) Rel Index 3.0 (0-4) 06/06/18 11:00 Troponin T < 0.010 ng/mL (0.00-0.029) 06/06/18 11:00 NT-Pro-B Natriuret Pep 4306 pg/mL (0-900) H 06/05/18 21:14 PTH Intact 133.4 pg/mL (15-65) H 06/07/18 04:56 Blood Type B POSITIVE 06/06/18 10:52 Antibody Screen Negative 06/06/18 10:52 Nutrition/Malnutrition Assess - Dietary Evaluation Nutrition/Malnutrition Findings: Nutrition Notes Start: 06/07/18 13:58 Freq: Status: Active Protocol: Document 06/11/18 09:47 CT (Rec: 06/11/18 10:50 CT [id number]) Co-Sign 06/11/18 09:47 LP Nutrition Notes Need for Assessment generated from: LOS Initial or Follow up Brief Note Current Diagnosis Acute Kidney Injury Hypertension Respiratory Failure Current Diet Cardiac Labs/Tests Reviewed. Pertinent Medications Coumadin Subjective/Other Information RD screen for LOS. Pt eating 100% of meals. Preferences noted. Nutrition Intervention Revisit per MD consult or patient Sign Off request:
--- NOTE | 2018-06-12 15:24 | Discharge Summary ---
Providers - Providers Date of Admission: 06/06/18 00:05 Date of discharge: 06/12/18 Attending physician: MARILEE DOLL 06/06/18 00:21 Consult to Physician [CONS] Routine Comment: DR FOWLER NOTIFIED [id number] Consulting Provider: NATA FOWLER Physician Instructions: Reason For Exam: MULTIPLE PULMONARY EMBOLISM ICLUDING SADDLE TYPE 06/06/18 06:00 Consult to Physician [CONS] Routine Comment: A/S NOTIFIED PEDRO 0815 Consulting Provider: FERMIN LOZA Physician Instructions: Reason For Exam: MULTIPLE PULMONARY EMBOLISM/ICU ADMISSION 06/06/18 06:24 Consult to Physician [CONS] Routine Comment: DR SHANKAR NOTIFIED 0815 Consulting Provider: ERAN WRIGHT Physician Instructions: Reason For Exam: ERIC 06/10/18 07:58 Physical Therapy Evaluation and Treat [CONS] Routine Comment: Reason For Exam: gen weakness, bilateral pulm embolism 06/11/18 16:49 Consult to Physician [CONS] Routine Comment: Consulting Provider: CRISTIANE JARRETT Physician Instructions: Reason For Exam: PE, patietn known to your group Hospitalization Condition: Fair Hospital course: Patient is 63 yo with history of DVT, pulmonary embolism. He presented with c hest pain, shortness of breath. CT Angiogram revealed bilateral pulmonary embolism, saddle embolism with large clot burden. He was started on heparin drip, admitted to ICU . Vasc surgery was consulted and EKOS cathere placed , thrombolysis with TPA. he was then transferred to [facility], started on Coumadin, By then chest pain had resolved. He was switched to Eliquis and discharged home on Eliquis on 06/12/18. Total time spent on discharge, 32 mins. Disposition: DC- TO HOME OR SELFCARE - Discharge Diagnoses (1) Acute respiratory failure Status: Acute (2) Pulmonary embolism Status: Acute Qualifiers: Pulmonary embolism type: saddle Chronicity: acute Acute cor pulmonale presence: with acute cor pulmonale Qualified Code(s): I26.02 - Saddle embolus of pulmonary artery with acute cor pulmonale (3) ERIC (acute kidney injury) Status: Acute (4) Vasomotor nephropathy Status: Acute Core Measure Documentation - Palliative Care Palliative Care/ Comfort Measures: Not Applicable - Core Measures Any of the following diagnoses?: DVT/PE - VTE Discharge Requirements Deep Vein Thrombosis/Pulmonary Embolism Present on Admission: Yes Has pt received <5 days of overlap therapy or INR<2.0: Yes Anticoagulant overlap therapy prescribed at discharge: No Contraindication No Overlap Therapy order at DC: Not Indicated (Going home on Eliquis) Exam - Constitutional Vitals: Temp Pulse Resp BP Pulse Ox 98.1 F 60 16 116/66 96 06/12/18 11:44 06/12/18 11:44 06/12/18 11:44 06/12/18 11:44 06/12/18 11:44 Plan Activity: advance as tolerated Diet: low fat, low cholesterol, low salt Additional Instructions: 1.Follow up with PCP in 1 week. 2.Follow up with Jeremías Paula in 1 week. Follow up with: ODELL FRENCH [Other] - 7 Days Prescriptions: Apixaban [Eliquis] 10 mg PO BID 7 Days #28 tablet Apixaban [Eliquis] 5 mg PO BID #60 tablet Famotidine [Pepcid] 20 mg PO BID #60 tablet
[2018-06-12 16:33] LABS: INR 1.97 (0.87-1.13)
[2018-06-12] MEDS ORDERED: ELIQUIS PO SCH (18:00)
[2018-06-13 11:39] VITALS: BP 113/59
== END 2018-06-12 18:16 | disposition home or self-care (01) | DRG 166 ==
LOC: ED 19:47 → CC1 06-06 00:05 → 4A 06-06 00:15 → UNDOADMIN 06-06 00:15 → CC1 06-06 09:50 → 4A 06-08 20:25
PROVIDERS: ADMIT Internal Medicine; ATTEND Internal Medicine
PROC: 3E06317 Introduction of Other Thrombolytic into Central Artery, Percutaneous Approach (ICD-10-PCS; 2018-06-06)
PROC: B31T1ZZ Fluoroscopy of Left Pulmonary Artery using Low Osmolar Contrast (ICD-10-PCS; 2018-06-06)
PROC: B31S1ZZ Fluoroscopy of Right Pulmonary Artery using Low Osmolar Contrast (ICD-10-PCS; 2018-06-06)
PROC: B54BZZA Ultrasonography of Right Lower Extremity Veins, Guidance (ICD-10-PCS; 2018-06-06)
PROC: 02HQ33Z Insertion of Infusion Device into Right Pulmonary Artery, Percutaneous Approach (ICD-10-PCS; 2018-06-06)
PROC: 02HR33Z Insertion of Infusion Device into Left Pulmonary Artery, Percutaneous Approach (ICD-10-PCS; 2018-06-06)
PROC: 06H03DZ Insertion of Intraluminal Device into Inferior Vena Cava, Percutaneous Approach (ICD-10-PCS; principal; 2018-06-07)
PROC: B31T1ZZ Fluoroscopy of Left Pulmonary Artery using Low Osmolar Contrast (ICD-10-PCS; 2018-06-07)
PROC: B31S1ZZ Fluoroscopy of Right Pulmonary Artery using Low Osmolar Contrast (ICD-10-PCS; 2018-06-07)
PROC: 02PY33Z Removal of Infusion Device from Great Vessel, Percutaneous Approach (ICD-10-PCS; 2018-06-07)
DX: I26.02 Saddle embolus of pulmonary artery with acute cor pulmonale (principal); J96.01 Acute respiratory failure with hypoxia; I42.9 Cardiomyopathy, unspecified; N17.9 Acute kidney failure, unspecified; I82.412 Acute embolism and thrombosis of left femoral vein; I82.432 Acute embolism and thrombosis of left popliteal vein; D69.6 Thrombocytopenia, unspecified; I95.9 Hypotension, unspecified; I10 Essential (primary) hypertension; M10.9 Gout, unspecified; E66.9 Obesity, unspecified; R91.8 Other nonspecific abnormal finding of lung field; R91.1 Solitary pulmonary nodule; Z90.49 Acquired absence of other specified parts of digestive tract; Z79.82 Long term (current) use of aspirin; Z79.899 Other long term (current) drug therapy; Z68.30 Body mass index [BMI] 30.0-30.9, adult
CPT/HCPCS: 36415; 37191; 37211; 37214; 71045; 71046; 71275; 76770; 80048; 82550; 82553; 83735; 83880; 83970; 84100; 84484; 85014; 85018; 85025; 85049; 85379; 85384; 85520; 85610; 85730; 86850; 86900; 86901; 93005; 93010; 93970; 94760; 99292; G0378; A9270-GY; C1757; C1769; C1880; C1894; J0690; J1644; J2250; J2270; J2405; J2997; J3010; J7030; J7040; J7050; Q9967

== ENCOUNTER 2018-06-29 20:04 | Emergency (ER) | payer MEDICARE ==
[2018-06-29] MEDS ORDERED: ASPIRIN PO ONE (22:36)
[2018-06-29 23:06] LABS: Basophils % (Auto) 0.6 % (0.0-1.8); Eosinophils # (Auto) 0.1 K/mm3 (0.0-0.4); Hematocrit 47.9 % (35.5-45.6); Hemoglobin 16.2 gm/dl (11.8-15.2); Lymphocytes # (Auto) 1.8 K/mm3 (1.2-5.4); Lymphocytes % (Auto) 24.6 % (13.4-35.0); Mean Corpuscular HGB Conc 34 % (32-34); Mean Corpuscular Volume 92 fl (84-94); Monocytes # (Auto) 0.5 K/mm3 (0.0-0.8); Monocytes % (Auto) 7.2 % (0.0-7.3); Platelet Count 203 K/mm3 (140-440); Red Blood Count 5.19 M/mm3 (3.65-5.03); Red Cell Distribution Width 14.1 % (13.2-15.2)
[2018-06-29 23:53] LABS: BUN/Creatinine Ratio 16; Blood Urea Nitrogen 19 mg/dL (9-20); Calcium 9.2 mg/dL (8.4-10.2); Hemolysis Index 108
--- NOTE | 2018-06-30 01:43 | Emergency Department Report ---
ED Chest Pain HPI - General Chief Complaint: Chest Pain Stated Complaint: CHEST PAIN Time Seen by Provider: 06/30/18 01:29 Source: patient Mode of arrival: Ambulatory Limitations: No Limitations - History of Present Illness Initial Comments: Patient is a 63 years old male with history of multiple PE. Patient recently discharged from the hospital for a PE with Elliquis. Patient presented to the ER today complaining of right sided chest pain that started all of a sudden this evening. Patient describes his pain as sharp in nature increase with inspi ration. Patient denied any fever or chills. Patient stated that he has mild shortness of breath. Patient stated that he is compliant with his medication. MD Complaint: chest pain -: This evening Onset: during rest Pain Location: right chest Pain Radiation: none Severity: moderate Severity scale (0 -10): 8 Quality: sharp Consistency: intermittent Improves With: nothing Worsens With: inspiration - Related Data Home Medications Medication Instructions Recorded Confirmed Last Taken Allopurinol [Zyloprim] 300 mg PO BID 06/05/18 06/05/18 06/05/18 Aspirin [Adult Low Dose Aspirin EC] 81 mg PO DAILY 06/05/18 06/05/18 06/05/18 Brimonidine 0.15% [Alphagan P 1 drops OP Q8H 06/05/18 06/05/18 Unknown 0.15%] Dorzolamide HCl/Timolol Maleat 10 ml OP BID 06/05/18 06/05/18 06/05/18 [Dorzolamide-Timolol Eye Drops] Furosemide [Lasix TAB] 40 mg PO DAILY 06/05/18 06/05/18 06/05/18 Gabapentin [Neurontin] 300 mg PO BID 06/05/18 06/05/18 06/05/18 Latanoprost/Pf [Latanoprost 0.005% 7.5 ml OP QHS 06/05/18 06/05/18 06/04/18 Eye Drop] Lisinopril 40 mg PO DAILY 06/05/18 06/05/18 06/05/18 Rosuvastatin (Nf) [Crestor] 20 mg PO DAILY 06/05/18 06/05/18 06/05/18 Silver Sulfadiazine [Silvadene] 50 gm TP DAILY 06/05/18 06/05/18 06/05/18 amLODIPine [Norvasc] 10 mg PO DAILY 06/05/18 06/05/18 06/05/18 methOCARBAMOL [Robaxin TAB] 500 mg PO BID 06/05/18 06/05/18 06/05/18 Previous Rx's Medication Instructions Recorded Last Taken Type ALBUTEROL NEB's [Proventil 0.083% 2.5 mg IH Q6HRT PRN nebu 06/12/18 Unknown Rx NEBS] Acetaminophen [Acetaminophen TAB] 650 mg PO Q4H PRN tablet 06/12/18 Unknown Rx Apixaban [Eliquis] 5 mg PO BID #60 tablet 06/12/18 Unknown Rx Apixaban [Eliquis] 10 mg PO BID 7 Days #28 tablet 06/12/18 Unknown Rx Famotidine [Pepcid] 20 mg PO BID #60 tablet 06/12/18 Unknown Rx Allergies Allergy/AdvReac Type Severity Reaction Status Date / Time lactose AdvReac Unknown Verified 06/29/18 22:40 Heart Score - HEART Score History: Slightly suspicious EKG: Non-specific Age: 45-65 Risk factors: 1-2 risk factors Troponin: < normal limit HEART Score: 3 - Critical Actions Critical Actions: 0-3 pts:0.9-1.7%risk of adverse cardiac event.Candidate for discharge ED Review of Systems ROS: Stated complaint: CHEST PAIN Other details as noted in HPI Comment: All other systems reviewed and negative Constitutional: denies: chills, fever Respiratory: denies: cough, orthopnea, shortness of breath, SOB with exertion, SOB at rest, wheezing Cardiovascular: chest pain. denies: palpitations Gastrointestinal: denies: abdominal pain, nausea, vomiting, diarrhea, constipation, hematemesis, melena, hematochezia Musculoskeletal: denies: back pain Neurological: denies: headache, weakness, numbness, paresthesias, confusion ED Past Medical Hx - Past Medical History Hx Hypertension: Yes Hx Heart Attack/AMI: No Hx Congestive Heart Failure: No Hx Deep Vein Thrombosis: Yes Hx Pulmonary Embolism: Yes Hx Asthma: No Hx COPD: No Hx Tuberculosis: No Hx HIV: No Additional medical history: GOUT, - Surgical History Hx Coronary Stent: No Hx Open Heart Surgery: No Hx Pacemaker: No Hx Internal Defibrillator: No Hx Cholecystectomy: No Hx Appendectomy: Yes Hx Breast Surgery: No Additional Surgical History: [place] filter - Social History Smoking Status: Never Smoker Substance Use Type: None - Medications Home Medications: Home Medications Medication Instructions Recorded Confirmed Last Taken Type Allopurinol [Zyloprim] 300 mg PO BID 06/05/18 06/05/18 06/05/18 History Aspirin [Adult Low Dose Aspirin EC] 81 mg PO DAILY 06/05/18 06/05/18 06/05/18 History Brimonidine 0.15% [Alphagan P 1 drops OP Q8H 06/05/18 06/05/18 Unknown History 0.15%] Dorzolamide HCl/Timolol Maleat 10 ml OP BID 06/05/18 06/05/18 06/05/18 History [Dorzolamide-Timolol Eye Drops] Furosemide [Lasix TAB] 40 mg PO DAILY 06/05/18 06/05/18 06/05/18 History Gabapentin [Neurontin] 300 mg PO BID 06/05/18 06/05/18 06/05/18 History Latanoprost/Pf [Latanoprost 0.005% 7.5 ml OP QHS 06/05/18 06/05/18 06/04/18 History Eye Drop] Lisinopril 40 mg PO DAILY 06/05/18 06/05/18 06/05/18 History Rosuvastatin (Nf) [Crestor] 20 mg PO DAILY 06/05/18 06/05/18 06/05/18 History Silver Sulfadiazine [Silvadene] 50 gm TP DAILY 06/05/18 06/05/18 06/05/18 History amLODIPine [Norvasc] 10 mg PO DAILY 06/05/18 06/05/18 06/05/18 History methOCARBAMOL [Robaxin TAB] 500 mg PO BID 06/05/18 06/05/18 06/05/18 History ALBUTEROL NEB's [Proventil 0.083% 2.5 mg IH Q6HRT PRN nebu 06/12/18 Unknown Rx NEBS] Acetaminophen [Acetaminophen TAB] 650 mg PO Q4H PRN tablet 06/12/18 Unknown Rx Apixaban [Eliquis] 5 mg PO BID #60 tablet 06/12/18 Unknown Rx Apixaban [Eliquis] 10 mg PO BID 7 Days #28 tablet 06/12/18 Unknown Rx Famotidine [Pepcid] 20 mg PO BID #60 tablet 06/12/18 Unknown Rx ED Physical Exam - General Limitations: No Limitations General appearance: alert, in no apparent distress - Head Head exam: Present: atraumatic, normocephalic - Eye Eye exam: Present: normal appearance, PERRL - ENT ENT exam: Present: normal exam, normal orophraynx, mucous membranes moist - Neck Neck exam: Present: normal inspection, full ROM. Absent: tenderness, meningismus, lymphadenopathy, thyromegaly - Respiratory Respiratory exam: Present: normal lung sounds bilaterally - Cardiovascular Cardiovascular Exam: Present: regular rate, normal rhythm, normal heart sounds - GI/Abdominal GI/Abdominal exam: Present: soft, normal bowel sounds. Absent: distended, tenderness, guarding, rebound, rigid, diminished bowel sounds, organomegaly, mass, bruit, pulsatile mass, hernia - Extremities Exam Extremities exam: Present: normal inspection, full ROM, normal capillary refill. Absent: pedal edema, calf tenderness - Back Exam Back exam: Present: normal inspection, full ROM. Absent: tenderness, CVA tenderness (R), CVA tenderness (L), muscle spasm, paraspinal tenderness, vertebral tenderness - Neurological Exam Neurological exam: Present: alert, oriented X3, CN II-XII intact, normal gait, reflexes normal - Psychiatric Psychiatric exam: Present: normal mood - Skin Skin exam: Present: warm, intact, normal color ED Course Vital Signs 06/29/18 06/30/18 20:17 03:00 Temperature 97.9 F Pulse Rate 95 H Respiratory 18 20 Rate Blood Pressure 134/83 O2 Sat by Pulse 97 98 Oximetry THERESA score - Theresa Score Age > 65: (0) No Aspirin use within the Past 7 Days: (0) No 3 or more CAD Risk Factors: (0) No 2 or more Angina events in past 24 hrs: (0) No Known CAD with more than 50% Stenosis: (0) No Elevated Cardiac Markers: (0) No ST Deviation Greater than 0.5mm: (0) No THERESA Score: 0 ED Medical Decision Making - Lab Data Result diagrams: 06/29/18 22:44 06/29/18 22:44 - EKG Data -: EKG Interpreted by [place] EKG shows normal: sinus rhythm Rate: normal - EKG Data Interpretation: no acute changes - Radiology Data Radiology results: report reviewed - Medical Decision Making Patient is a 63 years old male with history of multiple PE. Patient recently discharged from the hospital for a PE with Elliquis. Patient presented to the ER today complaining of right sided chest pain that started all of a sudden this evening. Patient describes his pain as sharp in nature increase with inspiration. Patient denied any fever or chills. Patient stated that he has mild shortness of breath. Patient stated that he is compliant with his medication. The patient remained stable in the emergency room. With a stable vital signs. CTA chest is negative for acute pulmonary embolism. No other pathology noticed on the CTA. 2 sets of troponin is negative. Patient reported that he had a fall on his chest this evening and that might be the cause for what he have. Critical care attestation.: If time is entered above; I have spent that time in minutes in the direct care of this critically ill patient, excluding procedure time. ED Disposition Clinical Impression: Chest pain Disposition: DC-01 TO HOME OR SELFCARE Is pt being admited?: No Condition: Stable Instructions: Chest Pain (ED) Referrals: EDI SALOMON [Primary Care Provider] - 3-5 Days
[2018-06-30] MEDS ORDERED: ASPIRIN ONE (02:16)
[2018-06-30 02:20] LABS: INR 0.95 (0.87-1.13)
[2018-06-30 02:21] LABS: Partial Thromboplastin Time 28.1 Sec. (24.2-36.6)
--- NOTE | 2018-06-30 03:47 | Cat Scan Report ---
FINAL REPORT PROCEDURE: CT ANGIO CHEST TECHNIQUE: Computerized tomographic angiography of the chest was performed after the IV injection of iodinated nonionic contrast including image processing. The image data was postprocessed using 2-dim ensional multiplanar reformatted (MPR) and 3-dimensional (MIP and/or volume rendered) techniques. HISTORY: CHEST PAIN, H/O PE COMPARISON: No prior studies are available for comparison. FINDINGS: Heart and pericardium: Normal. Thoracic aorta: There is no thoracic aortic aneurysm or dissection.. Pulmonary vasculature: There is residual peripheral thrombus in the proximal right pulmonary artery. This is remnant of acute thrombosis noted on prior study. There is currently no acute occlusive throm bus in the pulmonary arteries.. Lymph nodes: No enlarged thoracic lymph nodes. Lungs: There is atelectasis at the lung bases greater on the right. Pleural space: There is no pleural effusion or pneumothorax.. Musculoskeletal structures: No significant abnormality. Upper abdominal structures: No significant abnormality. IMPRESSION: The heart size is normal. There is no thoracic aortic aneurysm or dissection.. There is residual peripheral thrombus in the proximal right pulmonary artery. This is remnant of acut e thrombosis noted on prior study. There is currently no acute occlusive thrombus in the pulmonary ar teries.. There is atelectasis at the lung bases greater on the right. There is no pleural effusion or pneumothorax..
[2018-06-30 04:16] VITALS: BP 125/77
== END 2018-06-30 04:27 | disposition home or self-care (01) ==
LOC: ED 20:04
DX: R07.9 Chest pain, unspecified (principal); R06.02 Shortness of breath; Z86.711 Personal history of pulmonary embolism
CPT/HCPCS: 36415; 71275; 80048; 84484; 85025; 85610; 85730; 93005; 93010; 99284; Q9967

== ENCOUNTER 2018-08-07 16:51 | Inpatient (IN) | payer MEDICARE ==
--- NOTE | 2018-08-07 17:00 | Emergency Department Report ---
Blank Doc - Documentation Documentation: Patient report outside [facility] and passed out. Patient report that neighbor r renaterts he was sitting in chair. He reports that neighbor said his eyes rolled back. Took his bp meds prior to incident. No headache. No dizziness. No sob or cP. Mini Neuro- alert and oriented x3, NAD. gait abnormal due to chronic arthritis. speech clear. facial symmetry CV: S1S2. HR 59 on ekg A/P Near syncope CT head, labs, UA
--- NOTE | 2018-08-07 18:27 | Cat Scan Report ---
CT HEAD/BRAIN WO CON CLINICAL INDICATION: Male, 63 years of age. near syncope COMPARISON: None TECHNIQUE: Contiguous axial images were obtained from the vertex through the skull base.This CT exam was perform ed using one or more of the following dose reduction techniques: automated exposure control, adjustme nt of the mA and/or kV according to patient size, or use of iterative reconstruction technique. FINDINGS: No acute intracranial hemorrhage, midline shift, or extra-axial fluid collection. Ventricles and cis terns are normal in size and configuration for the patient's age. Singer white differentiation is main tained. Calvarium is grossly intact. Prominent calcification along the falx. Visualized ocular glob es are grossly unremarkable. Mild mucosal thickening in the visualized paranasal sinuses. Mastoid air cells are clear. IMPRESSION: No grossly acute intracranial abnormality. This document is electronically signed by Princess Wise DO., August 07 2018 06:25:42 PM ET
[2018-08-07 18:36] LABS: Basophils # (Auto) 0.2 K/mm3 (0.0-0.1); Basophils % (Auto) 2.9 % (0.0-1.8); Eosinophils # (Auto) 0.1 K/mm3 (0.0-0.4); Hematocrit 45.2 % (35.5-45.6); Hemoglobin 15.3 gm/dl (11.8-15.2); Lymphocytes # (Auto) 1.3 K/mm3 (1.2-5.4); Lymphocytes % (Auto) 24.1 % (13.4-35.0); Mean Corpuscular HGB Conc 34 % (32-34); Mean Corpuscular Volume 93 fl (84-94); Monocytes # (Auto) 0.5 K/mm3 (0.0-0.8); Monocytes % (Auto) 8.9 % (0.0-7.3); Platelet Count 176 K/mm3 (140-440); Red Blood Count 4.84 M/mm3 (3.65-5.03); Red Cell Distribution Width 14.6 % (13.2-15.2)
[2018-08-07 18:46] LABS: INR 1.14 (0.87-1.13); Partial Thromboplastin Time 26.9 Sec. (24.2-36.6)
[2018-08-07 18:59] LABS: Alanine Aminotransferase 16 units/L (7-56); Albumin 4.4 g/dL (3.9-5); BUN/Creatinine Ratio 14; Blood Urea Nitrogen 18 mg/dL (9-20); Calcium 9.8 mg/dL (8.4-10.2); Hemolysis Index 18
[2018-08-07 20:32] LABS: Bacteria,Urine 1+ /HPF (Negative); Bilirubin,Urine NEG (Negative); Blood,Urine NEG (Negative); Color,Urine Yellow (Yellow); Hyaline Casts,Urine 4 /LPF; Mucus,Urine FEW /HPF
--- NOTE | 2018-08-07 20:34 | Emergency Department Report ---
ED Syncope HPI - General Chief Complaint: Syncope Stated Complaint: POSS SYNCOPY Time Seen by Provider: 08/07/18 16:56 - History of Present Illness Initial Comments: Mr. Asher is a 63-year-old male with history of prediabetes, hypertension, multiple pulmonary emboli, DVT, IVC filter in place. He is currently on Eliquis for anticoagulation. He was brought to the ED for evaluation of syncope. Patient states that his neighbor witnessed that he passed out while outside grilling food. He was actually sitting down when this occurred. His eyes rolled back and head. There was urinary incontinence. He was unable to be aroused for 2 minutes. No previous history of heart attack or arrhythmia. No previous history of CHF. No previous history of seizure. No history of tobacco alcohol use. No history of drug use. No preceding symptoms. He has been in his normal state of health. Followed by [facility] for the past 4 years. Further history includes glaucoma. He is a retired truck trailer mechanic. Sister is at the bedside. However he does live alone. First instance of pulmonary embolism occurred 2012. Pulmonary emboli recurred due to noncompliance with anticoagulation. Timing/Prior Episodes: single episode today Precipitating Factors: Positive: none Loss of Consciousness: prolonged (minutes) Current Symptoms: back to normal, loss of bladder control - Related Data Allergies/Adverse Reactions: Allergies lactose Adverse Reaction (Verified 06/29/18 22:40) Unknown Home Medications: Ambulatory Orders Allopurinol [Zyloprim] 300 mg PO BID 06/05/18 Aspirin [Adult Low Dose Aspirin EC] 81 mg PO DAILY 06/05/18 Brimonidine 0.15% [Alphagan P 0.15%] 1 drops OP Q8H 06/05/18 Dorzolamide HCl/Timolol Maleat [Dorzolamide-Timolol Eye Drops] 10 ml OP BID 06/05/18 Furosemide [Lasix TAB] 40 mg PO DAILY 06/05/18 Gabapentin [Neurontin] 300 mg PO BID 06/05/18 Latanoprost/Pf [Latanoprost 0.005% Eye Drop] 7.5 ml OP QHS 06/05/18 Lisinopril 40 mg PO DAILY 06/05/18 Rosuvastatin (Nf) [Crestor] 20 mg PO DAILY 06/05/18 Silver Sulfadiazine [Silvadene] 50 gm TP DAILY 06/05/18 amLODIPine [Norvasc] 10 mg PO DAILY 06/05/18 methOCARBAMOL [Robaxin TAB] 500 mg PO BID 06/05/18 ALBUTEROL NEB's [Proventil 0.083% NEBS] 2.5 mg IH Q6HRT PRN nebu 06/12/18 Acetaminophen [Acetaminophen TAB] 650 mg PO Q4H PRN tablet 06/12/18 Apixaban [Eliquis] 5 mg PO BID #60 tablet 06/12/18 Apixaban [Eliquis] 10 mg PO BID 7 Days #28 tablet 06/12/18 Famotidine [Pepcid] 20 mg PO BID #60 tablet 06/12/18 Naproxen [Naprosyn] 500 mg PO BID #14 tablet 06/30/18 ED Review of Systems ROS: Stated complaint: POSS SYNCOPY Other details as noted in HPI Comment: All other systems reviewed and negative Constitutional: denies: fever, malaise Respiratory: denies: cough Cardiovascular: denies: chest pain ED Past Medical Hx - Past Medical History Previous Medical History?: Yes Hx Hypertension: Yes Hx Heart Attack/AMI: No Hx Congestive Heart Failure: No Hx Deep Vein Thrombosis: Yes Hx Pulmonary Embolism: Yes Hx Asthma: No Hx COPD: No Hx Tuberculosis: No Hx HIV: No Additional medical history: GOUT, - Surgical History Past Surgical History?: Yes Hx Coronary Stent: No Hx Open Heart Surgery: No Hx Pacemaker: No Hx Internal Defibrillator: No Hx Cholecystectomy: No Hx Appendectomy: Yes Hx Breast Surgery: No Additional Surgical History: [place] filter - Family History Family history: hypertension, other (glaucoma) - Social History Smoking Status: Never Smoker Substance Use Type: None 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, 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 - Medications Home Medications: Home Medications Medication Instructions Recorded Confirmed Last Taken Type Allopurinol [Zyloprim] 300 mg PO BID 06/05/18 06/05/18 06/05/18 History Aspirin [Adult Low Dose Aspirin EC] 81 mg PO DAILY 06/05/18 06/05/18 06/05/18 History Brimonidine 0.15% [Alphagan P 1 drops OP Q8H 06/05/18 06/05/18 Unknown History 0.15%] Dorzolamide HCl/Timolol Maleat 10 ml OP BID 06/05/18 06/05/18 06/05/18 History [Dorzolamide-Timolol Eye Drops] Furosemide [Lasix TAB] 40 mg PO DAILY 06/05/18 06/05/18 06/05/18 History Gabapentin [Neurontin] 300 mg PO BID 06/05/18 06/05/18 06/05/18 History Latanoprost/Pf [Latanoprost 0.005% 7.5 ml OP QHS 06/05/18 06/05/18 06/04/18 History Eye Drop] Lisinopril 40 mg PO DAILY 06/05/18 06/05/18 06/05/18 History Rosuvastatin (Nf) [Crestor] 20 mg PO DAILY 06/05/18 06/05/18 06/05/18 History Silver Sulfadiazine [Silvadene] 50 gm TP DAILY 06/05/18 06/05/18 06/05/18 History amLODIPine [Norvasc] 10 mg PO DAILY 06/05/18 06/05/18 06/05/18 History methOCARBAMOL [Robaxin TAB] 500 mg PO BID 06/05/18 06/05/18 06/05/18 History ALBUTEROL NEB's [Proventil 0.083% 2.5 mg IH Q6HRT PRN nebu 06/12/18 Unknown Rx NEBS] Acetaminophen [Acetaminophen TAB] 650 mg PO Q4H PRN tablet 06/12/18 Unknown Rx Apixaban [Eliquis] 5 mg PO BID #60 tablet 06/12/18 Unknown Rx Apixaban [Eliquis] 10 mg PO BID 7 Days #28 tablet 06/12/18 Unknown Rx Famotidine [Pepcid] 20 mg PO BID #60 tablet 06/12/18 Unknown Rx Naproxen [Naprosyn] 500 mg PO BID #14 tablet 06/30/18 Unknown Rx ED Physical Exam - General Limitations: No Limitations General appearance: alert, in no apparent distress - Head Head exam: Present: atraumatic, normocephalic - Eye Eye exam: Present: normal appearance - ENT ENT exam: Present: mucous membranes moist - Neck Neck exam: Present: normal inspection, full ROM - Respiratory Respiratory exam: Present: normal lung sounds bilaterally. Absent: respiratory distress, wheezes, rales, rhonchi - Cardiovascular Cardiovascular Exam: Present: regular rate, normal rhythm, normal heart sounds. Absent: systolic murmur, diastolic murmur, rubs, gallop - GI/Abdominal GI/Abdominal exam: Present: soft, normal bowel sounds. Absent: distended, tenderness, guarding, rebound - Rectal Rectal exam: Present: deferred - Extremities Exam Extremities exam: Present: normal inspection - Back Exam Back exam: Present: other (left symmetric in size) - Neurological Exam Neurological exam: Present: alert, oriented X3 - Psychiatric Psychiatric exam: Present: normal affect, normal mood - Skin Skin exam: Present: warm, dry, intact, normal color. Absent: rash ED Course Vital Signs 08/07/18 08/07/18 16:58 20:20 Temperature 97.3 F L Pulse Rate 67 Respiratory 16 16 Rate Blood Pressure 105/66 O2 Sat by Pulse 96 Oximetry ED Medical Decision Making - Lab Data Result diagrams: 08/07/18 18:18 08/07/18 18:18 Laboratory Results - last 24 hr 08/07/18 08/07/18 08/07/18 17:24 18:18 18:18 WBC 5.5 RBC 4.84 Hgb 15.3 H Hct 45.2 MCV 93 MCH 32 MCHC 34 RDW 14.6 Plt Count 176 Lymph % (Auto) 24.1 [facility] [facility] % (Auto) 8.9 H Eos % (Auto) 1.0 Baso % (Auto) 2.9 H Lymph # 1.3 [facility] # 0.5 Eos # 0.1 Baso # 0.2 H Seg Neutrophils % 63.1 Seg Neutrophils # 3.5 PT INR APTT Sodium 138 Potassium 3.9 Chloride 99.4 Carbon Dioxide 24 Anion Gap 19 BUN 18 Creatinine 1.3 Estimated GFR > 60 BUN/Creatinine Ratio 14 Glucose 141 H POC Glucose 135 H Calcium 9.8 Total Bilirubin 0.90 AST 17 ALT 16 Alkaline Phosphatase 67 Troponin T < 0.010 Total Protein 7.6 Albumin 4.4 Albumin/Globulin Ratio 1.4 08/07/18 18:18 WBC RBC Hgb Hct MCV MCH MCHC RDW Plt Count Lymph % (Auto) [facility] % (Auto) Eos % (Auto) Baso % (Auto) Lymph # [facility] # Eos # Baso # Seg Neutrophils % Seg Neutrophils # PT 15.3 H INR 1.14 H APTT 26.9 Sodium Potassium Chloride Carbon Dioxide Anion Gap BUN Creatinine Estimated GFR BUN/Creatinine Ratio Glucose POC Glucose Calcium Total Bilirubin AST ALT Alkaline Phosphatase Troponin T Total Protein Albumin Albumin/Globulin Ratio - EKG Data EKG shows normal: sinus rhythm, axis, intervals, QRS complexes, ST-T waves Rate: normal - EKG Data When compared to previous EKG there are: no significant change - Radiology Data Radiology results: report reviewed, image reviewed interpreted by me: AB portable chest radiograph one view: No acute process, according to radiology report CT head according to radiology report no acute process - Medical Decision Making Mr. Asher presents with syncope vs seizure. DDx: includes arrhythmia, seizure, I do not suspect PE with HR 60, no dyspnea or chest pain. Admitted to hospitalist service in fair condition. Labs reviewed within normal limits. EKG within normal limits. Critical care attestation.: If time is entered above; I have spent that time in minutes in the direct care of this critically ill patient, excluding procedure time. ED Disposition Clinical Impression: Syncope Disposition: -09 OP ADMIT IP TO THIS HOSP Is pt being admited?: Yes Does the pt Need Aspirin: No Condition: Stable Referrals: SUKI KING MD [Primary Care Provider] - 3-5 Days
--- NOTE | 2018-08-07 21:05 | XRay Report ---
PROCEDURE: XR CHEST 1V AP TECHNIQUE: Chest radiograph single view. HISTORY: dyspnea COMPARISONS: None . FINDINGS: Heart: Normal. Mediastinum/Vessels: Normal. Lungs/Pleural space: Normal. Bony thorax: No acute osseous abnormality. Life support devices: None. IMPRESSION: No acute cardiopulmonary abnormality. This document is electronically signed by Ren Childers MD., August 07 2018 09:03:33 PM ET
[2018-08-07] MEDS ORDERED: SODIUM CHLORIDE FLUSH SYRINGE 10 ML IV PRN (22:09)
[2018-08-07] MEDS ORDERED: NORCO 5/325 PO PRN (22:09)
[2018-08-07] MEDS ORDERED: ZOFRAN IV PRN (22:09)
[2018-08-07] MEDS ORDERED: ALUM-MAG HYDROX-SIMETH 200-200-20MG/5ML PO PRN (22:09)
[2018-08-07] MEDS ORDERED: TYLENOL PO PRN (22:09)
--- NOTE | 2018-08-07 23:54 | History and Physical Report ---
History of Present Illness Date of examination: 08/07/18 Date of admission: 08/07/18 22:10 Chief complaint: "I passed out" History of present illness: Patient is a 63-year-old -Syrian male with history of hypertension and PE/DVT who presented to the ED on account of a syncopal episode today. It was reported that the patient passed out while sitting down for about 2-3 minutes. He had associated urinary incontinence but no seizure activity. Patient also complained of tingling in his feet of 5 months duration. He denied preceding history of chest pain, shortness of breath, palpitation or diaphoresis. No fever, chills, cough, sore throat, runny nose, leg swelling, orthopnea or PND. No abdominal pain, nausea, vomiting, constipation, diarrhea, dysuria or frequency. He reported having syncopal episode without urinary incontinence in 2013 Past History Past Medical History: hypertension, hyperlipidemia, other (gout, prediabetes, multiple PE/DVT) Past Surgical History: appendectomy, Other (IVC filter placement, blood clot removal 2) Social history: other (patient admits to occasional alcohol use but denies tobacco or illicit drug use) Family history: other (reviewed and noncontributory) Medications and Allergies Allergies Allergy/AdvReac Type Severity Reaction Status Date / Time lactose AdvReac Unknown Verified 06/29/18 22:40 Home Medications Medication Instructions Recorded Confirmed Last Taken Type Allopurinol [Zyloprim] 300 mg PO BID 06/05/18 08/08/18 08/07/18 History Brimonidine 0.15% [Alphagan P 1 drops OP Q8H 06/05/18 08/08/18 08/07/18 History 0.15%] Furosemide [Lasix TAB] 40 mg PO DAILY 06/05/18 08/08/18 08/07/18 History Gabapentin [Neurontin] 300 mg PO BID 06/05/18 08/08/18 08/07/18 History Latanoprost/Pf [Latanoprost 0.005% 7.5 ml OP QHS 06/05/18 08/08/18 08/06/18 History Eye Drop] Lisinopril 40 mg PO DAILY 06/05/18 08/08/18 08/07/18 History Rosuvastatin (Nf) [Crestor] 20 mg PO DAILY 06/05/18 08/08/18 08/07/18 History amLODIPine [Norvasc] 10 mg PO DAILY 06/05/18 08/08/18 08/07/18 History methOCARBAMOL [Robaxin TAB] 500 mg PO BID 06/05/18 08/08/18 06/05/18 History ALBUTEROL NEB's [Proventil 0.083% 2.5 mg IH Q6HRT PRN nebu 06/12/18 08/08/18 07/29/18 Rx NEBS] Apixaban [Eliquis] 5 mg PO BID #60 tablet 06/12/18 08/08/18 08/07/18 Rx Famotidine [Pepcid] 20 mg PO BID #60 tablet 06/12/18 08/08/18 08/07/18 Rx Dorzolamide/Timolol(Nf) 2-0.5% 1 drop OU BID 08/09/18 08/09/18 08/08/18 History Neptazane (Nf) 50 mg PO TID 08/09/18 08/09/18 08/08/18 History AtorvaSTATin [Lipitor] 40 mg PO QHS #30 tablet 08/10/18 Unknown Rx levETIRAcetam [Keppra TAB] 500 mg PO BID #60 tablet 08/10/18 Unknown Rx Active Meds: Active Medications Acetaminophen (Tylenol) 650 mg PO Q4H PRN PRN Reason: Pain MILD(1-3)/Fever >100.5/GOVEA Acetaminophen/Hydrocodone Bitart ([place] 5/325) 1 each PO Q4H PRN PRN Reason: Pain, Moderate (4-6) Al Hydrox/Mg Hydrox/Simethicone (Alum-Mag Hydrox-Simeth [id number]/5ml) 30 ml PO Q4H PRN PRN Reason: Indigestion Ondansetron HCl (Zofran) 4 mg IV Q8H PRN PRN Reason: Nausea And Vomiting Sodium Chloride (Sodium Chloride Flush Syringe 10 Ml) 10 ml IV BID MAX Sodium Chloride (Sodium Chloride Flush Syringe 10 Ml) 10 ml IV PRN PRN PRN Reason: LINE FLUSH Review of Systems All systems: negative (except as documented in the HPI, all other systems were reviewed and negative) Exam - Constitutional Vitals: Temp Pulse Resp BP Pulse Ox 97.3 F L 74 15 130/79 94 08/07/18 16:58 08/07/18 23:16 08/07/18 23:16 08/07/18 23:16 08/07/18 23:16 General appearance: Present: no acute distress - EENT Eyes: Present: PERRL, EOM intact ENT: hearing intact, clear oral mucosa - Neck Neck: Present: supple, normal ROM - Respiratory Respiratory effort: normal Respiratory: bilateral: CTA - Cardiovascular Rhythm: regular Heart Sounds: Present: S1 & S2. Absent: rub, click - Extremities Extremity abnormal: edema (in bilateral lower extremities) Peripheral Pulses: within normal limits - Abdominal General gastrointestinal: Present: soft, non-tender, non-distended, normal bowel sounds Male genitourinary: Present: deferred - Integumentary Integumentary: Present: clear, warm, dry - Musculoskeletal Musculoskeletal: gait normal, strength equal bilaterally - Psychiatric Psychiatric: appropriate mood/affect, intact judgment & insight - Neurologic Neurologic: CNII-XII intact, moves all extremities Results - Labs CBC & Chem 7: 08/07/18 18:18 08/07/18 18:18 Labs: Laboratory Last Values WBC 5.5 K/mm3 (4.5-11.0) 08/07/18 18:18 RBC 4.84 M/mm3 (3.65-5.03) 08/07/18 18:18 Hgb 15.3 gm/dl (11.8-15.2) H 08/07/18 18:18 Hct 45.2 % (35.5-45.6) 08/07/18 18:18 MCV 93 fl (84-94) 08/07/18 18:18 MCH 32 pg (28-32) 08/07/18 18:18 MCHC 34 % (32-34) 08/07/18 18:18 RDW 14.6 % (13.2-15.2) 08/07/18 18:18 Plt Count 176 K/mm3 (140-440) 08/07/18 18:18 Lymph % (Auto) 24.1 % (13.4-35.0) 08/07/18 18:18 [place] % (Auto) 8.9 % (0.0-7.3) H 08/07/18 18:18 Eos % (Auto) 1.0 % (0.0-4.3) 08/07/18 18:18 Baso % (Auto) 2.9 % (0.0-1.8) H 08/07/18 18:18 Lymph # 1.3 K/mm3 (1.2-5.4) 08/07/18 18:18 [place] # 0.5 K/mm3 (0.0-0.8) 08/07/18 18:18 Eos # 0.1 K/mm3 (0.0-0.4) 08/07/18 18:18 Baso # 0.2 K/mm3 (0.0-0.1) H 08/07/18 18:18 Seg Neutrophils % 63.1 % (40.0-70.0) 08/07/18 18:18 Seg Neutrophils # 3.5 K/mm3 (1.8-7.7) 08/07/18 18:18 PT 15.3 Sec. (12.2-14.9) H 08/07/18 18:18 INR 1.14 (0.87-1.13) H 08/07/18 18:18 APTT 26.9 Sec. (24.2-36.6) 08/07/18 18:18 Sodium 138 mmol/L (137-145) 08/07/18 18:18 Potassium 3.9 mmol/L (3.6-5.0) 08/07/18 18:18 Chloride 99.4 mmol/L (98-107) 08/07/18 18:18 Carbon Dioxide 24 mmol/L (22-30) 08/07/18 18:18 Anion Gap 19 mmol/L 08/07/18 18:18 BUN 18 mg/dL (9-20) 08/07/18 18:18 Creatinine 1.3 mg/dL (0.8-1.5) 08/07/18 18:18 Estimated GFR > 60 ml/min 08/07/18 18:18 BUN/Creatinine Ratio 14 % 08/07/18 18:18 Glucose 141 mg/dL (75-100) H 08/07/18 18:18 POC Glucose 135 (70-105) H 08/07/18 17:24 Calcium 9.8 mg/dL (8.4-10.2) 08/07/18 18:18 Total Bilirubin 0.90 mg/dL (0.1-1.2) 08/07/18 18:18 AST 17 units/L (5-40) 08/07/18 18:18 ALT 16 units/L (7-56) 08/07/18 18:18 Alkaline Phosphatase 67 units/L (35-129) 08/07/18 18:18 Troponin T < 0.010 ng/mL (0.00-0.029) 08/07/18 22:54 NT-Pro-B Natriuret Pep 40.24 pg/mL (0-900) 08/07/18 20:37 Total Protein 7.6 g/dL (6.3-8.2) 08/07/18 18:18 Albumin 4.4 g/dL (3.9-5) 08/07/18 18:18 Albumin/Globulin Ratio 1.4 % 08/07/18 18:18 Urine Color Yellow (Yellow) 08/07/18 19:19 Urine Turbidity Clear (Clear) 08/07/18 19:19 Urine pH 7.0 (5.0-7.0) 08/07/18 19:19 Ur Specific [place] 1.008 (1.003-1.030) 08/07/18 19:19 Urine Protein 30 mg/dl mg/dL (Negative) 08/07/18 19:19 Urine Glucose (UA) Neg mg/dL (Negative) 08/07/18 19:19 Urine Ketones Neg mg/dL (Negative) 08/07/18 19:19 Urine Blood Neg (Negative) 08/07/18 19:19 Urine Nitrite Neg (Negative) 08/07/18 19:19 Urine Bilirubin Neg (Negative) 08/07/18 19:19 Urine Urobilinogen 4.0 mg/dL (<2.0) 08/07/18 19:19 Ur Leukocyte Esterase Neg (Negative) 08/07/18 19:19 Urine WBC (Auto) 1.0 /HPF (0.0-6.0) 08/07/18 19:19 Urine RBC (Auto) 1.0 /HPF (0.0-6.0) 08/07/18 19:19 U Epithel Cells (Auto) 1.0 /HPF (0-13.0) 08/07/18 19:19 Urine Bacteria (Auto) 1+ /HPF (Negative) 03/30/19 19:19 Hyaline Casts 4 /LPF 08/07/18 19:19 Urine Mucus Few /HPF 08/07/18 19:19 Assessment and Plan Assessment and plan: Syncope probably vasovagal -We'll continue serial troponin level monitoring -Carotid duplex, echocardiogram and EEG for further evaluation Hyperglycemia -We'll check hemoglobin A1c level Hypertension -Controlled History of multiple DVT/PE -Status post IVC filter placement -Continue home oral anticoagulation History of gout, stable HLD -Continue statin DVT prophylaxis with Lovenox Disposition: For discharge if pending tests come back negative Time spent: 35 minutes
[2018-08-08] MEDS: SODIUM CHLORIDE FLUSH SYRINGE 10 ML IV SCH ×2 (09:18→21:36)
--- NOTE | 2018-08-08 11:01 | Progress Note ---
Assessment and Plan Assessment and plan: Syncope - Neurology was consulted and thinks it is seizure, EEG ordered, started on keppra, F/u with neurology -Carotid duplex and CT head normal, f/u Echo Hyperglycemia - A1c is normal, likely reactive Hypertension -Controlled History of multiple DVT/PE -Status post IVC filter placement -Continue home oral anticoagulation History of gout, stable HLD -Continue statin Continue all home medications DVT prophylaxis with Lovenox Disposition; f/u neurology for the need of AED as an O/p History Interval history: Patient was seen and evaluated this morning, patient was admitted yesterday for syncopal episode. No dizziness or syncope today. Hospitalist Physical - Physical exam Narrative exam: Not in cardiopulmonary distress. The patient appeared well nourished and normally developed. Vital signs as documented. Head exam is unremarkable. No scleral icterus . Neck is without jugular venous distension, thyromegaly, or carotid bruits. Lungs are clear to auscultation. Cardiac exam reveals regular rate and Rhythm. Abdominal exam reveals normal bowel sounds. Extremities are nonedematous and both femoral and pedal pulses are normal. GEOTHERMAL TECHNICIAN: Alert and oriented 3. No focal weakness. - Constitutional Vitals: Temp Pulse Resp BP Pulse Ox 97.5 F L 64 24 110/55 95 08/08/18 04:57 08/08/18 04:57 08/08/18 04:57 08/08/18 04:57 08/08/18 04:57 General appearance: Present: no acute distress Results - Labs CBC & Chem 7: 08/07/18 18:18 08/07/18 18:18 Labs: Laboratory Last Values WBC 5.5 K/mm3 (4.5-11.0) 08/07/18 18:18 RBC 4.84 M/mm3 (3.65-5.03) 08/07/18 18:18 Hgb 15.3 gm/dl (11.8-15.2) H 08/07/18 18:18 Hct 45.2 % (35.5-45.6) 08/07/18 18:18 MCV 93 fl (84-94) 08/07/18 18:18 MCH 32 pg (28-32) 08/07/18 18:18 MCHC 34 % (32-34) 08/07/18 18:18 RDW 14.6 % (13.2-15.2) 08/07/18 18:18 Plt Count 176 K/mm3 (140-440) 08/07/18 18:18 Lymph % (Auto) 24.1 % (13.4-35.0) 08/07/18 18:18 [place] % (Auto) 8.9 % (0.0-7.3) H 08/07/18 18:18 Eos % (Auto) 1.0 % (0.0-4.3) 08/07/18 18:18 Baso % (Auto) 2.9 % (0.0-1.8) H 08/07/18 18:18 Lymph # 1.3 K/mm3 (1.2-5.4) 08/07/18 18:18 [place] # 0.5 K/mm3 (0.0-0.8) 08/07/18 18:18 Eos # 0.1 K/mm3 (0.0-0.4) 08/07/18 18:18 Baso # 0.2 K/mm3 (0.0-0.1) H 08/07/18 18:18 Seg Neutrophils % 63.1 % (40.0-70.0) 08/07/18 18:18 Seg Neutrophils # 3.5 K/mm3 (1.8-7.7) 08/07/18 18:18 PT 15.3 Sec. (12.2-14.9) H 08/07/18 18:18 INR 1.14 (0.87-1.13) H 08/07/18 18:18 APTT 26.9 Sec. (24.2-36.6) 08/07/18 18:18 Sodium 138 mmol/L (137-145) 08/07/18 18:18 Potassium 3.9 mmol/L (3.6-5.0) 08/07/18 18:18 Chloride 99.4 mmol/L (98-107) 08/07/18 18:18 Carbon Dioxide 24 mmol/L (22-30) 08/07/18 18:18 Anion Gap 19 mmol/L 08/07/18 18:18 BUN 18 mg/dL (9-20) 08/07/18 18:18 Creatinine 1.3 mg/dL (0.8-1.5) 08/07/18 18:18 Estimated GFR > 60 ml/min 08/07/18 18:18 BUN/Creatinine Ratio 14 % 08/07/18 18:18 Glucose 141 mg/dL (75-100) H 08/07/18 18:18 POC Glucose 135 (70-105) H 08/07/18 17:24 Hemoglobin A1c 6.0 % (4-6) 08/07/18 22:54 Calcium 9.8 mg/dL (8.4-10.2) 08/07/18 18:18 Total Bilirubin 0.90 mg/dL (0.1-1.2) 08/07/18 18:18 AST 17 units/L (5-40) 08/07/18 18:18 ALT 16 units/L (7-56) 08/07/18 18:18 Alkaline Phosphatase 67 units/L (35-129) 08/07/18 18:18 Troponin T < 0.010 ng/mL (0.00-0.029) 08/08/18 01:25 NT-Pro-B Natriuret Pep 40.24 pg/mL (0-900) 08/07/18 20:37 Total Protein 7.6 g/dL (6.3-8.2) 08/07/18 18:18 Albumin 4.4 g/dL (3.9-5) 08/07/18 18:18 Albumin/Globulin Ratio 1.4 % 08/07/18 18:18 Urine Color Yellow (Yellow) 08/07/18 19:19 Urine Turbidity Clear (Clear) 08/07/18 19:19 Urine pH 7.0 (5.0-7.0) 08/07/18 19:19 Ur Specific [place] 1.008 (1.003-1.030) 08/07/18 19:19 Urine Protein 30 mg/dl mg/dL (Negative) 08/07/18 19:19 Urine Glucose (UA) Neg mg/dL (Negative) 08/07/18 19:19 Urine Ketones Neg mg/dL (Negative) 08/07/18 19:19 Urine Blood Neg (Negative) 08/07/18 19:19 Urine Nitrite Neg (Negative) 08/07/18 19:19 Urine Bilirubin Neg (Negative) 08/07/18 19:19 Urine Urobilinogen 4.0 mg/dL (<2.0) 08/07/18 19:19 Ur Leukocyte Esterase Neg (Negative) 08/07/18 19:19 Urine WBC (Auto) 1.0 /HPF (0.0-6.0) 08/07/18 19:19 Urine RBC (Auto) 1.0 /HPF (0.0-6.0) 08/07/18 19:19 U Epithel Cells (Auto) 1.0 /HPF (0-13.0) 08/07/18 19:19 Urine Bacteria (Auto) 1+ /HPF (Negative) 08/07/18 19:19 Hyaline Casts 4 /LPF 08/07/18 19:19 Urine Mucus Few /HPF 08/07/18 19:19 Active Medications - Current Medications Current Medications: Generic Name Dose Route Start Last Admin Trade Name Freq PRN Reason Stop Dose Admin Acetaminophen 650 mg 08/07/18 22:09 Tylenol PO Q4H PRN Pain MILD(1-3)/Fever >100.5/GOVEA Acetaminophen/Hydrocodone Bitart 1 each 08/07/18 22:09 [place] 5/325 PO Q4H PRN Pain, Moderate (4-6) Al Hydrox/Mg Hydrox/Simethicone 30 ml 08/07/18 22:09 Alum-Mag Hydrox-Simeth [phone]/5ml PO Q4H PRN Indigestion Ondansetron HCl 4 mg 08/07/18 22:09 Zofran IV Q8H PRN Nausea And Vomiting Sodium Chloride 10 ml 08/08/18 10:00 08/08/18 09:18 Sodium Chloride Flush Syringe 10 Ml IV 10 ml BID MAX Administration Sodium Chloride 10 ml 08/07/18 22:09 Sodium Chloride Flush Syringe 10 Ml IV PRN PRN LINE FLUSH
--- NOTE | 2018-08-08 11:59 | Progress Note ---
Subjective Date of service: 08/08/18 Interval history: based on the description sounds like he had a seizure there is priior hx of having venouse filters and clots has seen Dr. Hernandez the episode of syncope at this point certainly sounds like seizure w/u pending explained dx to patient Objective - Vital Sign Vital Signs - 12hr 08/08/18 08/08/18 04:57 11:03 Temperature 97.5 F L 97.8 F Pulse Rate 64 Respiratory 24 20 Rate Blood Pressure 110/55 138/81 O2 Sat by Pulse 95 Oximetry - Laboratory Findings CBC and BMP: 08/07/18 18:18 08/07/18 18:18 Abnormal Lab Findings: Abnormal Labs 08/07/18 08/07/18 08/07/18 17:24 18:18 18:18 Hgb 15.3 H [place] % (Auto) 8.9 H Baso % (Auto) 2.9 H Baso # 0.2 H PT INR Glucose 141 H POC Glucose 135 H 08/07/18 18:18 Hgb [place] % (Auto) Baso % (Auto) Baso # PT 15.3 H INR 1.14 H Glucose POC Glucose
--- NOTE | 2018-08-08 12:52 | Vascular Lab Report ---
PROCEDURE: VL CAROTID DUPLEX BILAT TECHNIQUE: Carotid duplex Doppler ultrasound HISTORY: SYNCOPE COMPARISON: None FINDINGS: There is a mild to moderate degree of atherosclerotic plaque in carotid bulbs. There is no abnormal e levation carotid flow velocity. ICA/CCA velocity ratios are normal, 0.69 on the right and 0.72 the le ft. There is no evidence of any hemodynamically significant stenosis. Specifically, findings correlat e to stenoses of less than 50%. Vertebral artery flow is antegrade bilaterally. IMPRESSION: No evidence of any hemodynamically significant stenosis. This document is electronically signed by Daisy Medina MD., August 08 2018 12:50:46 PM ET
[2018-08-08] MEDS ORDERED: PROVENTIL IH PRN (13:29)
[2018-08-08] MEDS: KEPPRA PO SCH ×2 (15:17→21:35)
[2018-08-08] MEDS: NEURONTIN PO SCH ×2 (15:17→21:35)
[2018-08-08] MEDS: ROBAXIN PO SCH ×2 (15:17→21:35)
[2018-08-08] MEDS: LASIX PO SCH (15:18)
[2018-08-08] MEDS: ZESTRIL PO SCH (15:22)
[2018-08-08] MEDS: LATANOPROST 0.005% OU SCH (18:56)
[2018-08-08] MEDS: ELIQUIS PO SCH (21:35)
[2018-08-08] MEDS: ZYLOPRIM PO SCH (21:35)
[2018-08-08] MEDS: PEPCID PO SCH (21:35)
[2018-08-08] MEDS ORDERED: NON-FORMULARY (Rosuvastatin (Nf) 20 MG) PO SCH (22:00)
[2018-08-08] MEDS ORDERED: LATANOPROST OP SCH (22:00)
--- NOTE | 2018-08-09 04:05 | Consultation ---
HISTORY OF PRESENT ILLNESS: This is a 63-year-old black male who presents to [facility] after having had a syncopal spell in which he wet his pants. He has had recurrent episode of these issues. He has seen Dr. Arceo and Dr. Arceo's partner for installation of a filter clot. He has had clots since being on anticoagulants in the past due to pulmonary emboli. I have reviewed his CT scan of the head, which is unremarkable and other workup at this point is pending. He has had a carotid artery ultrasound, the report of which is not yet available. When he was seen, he apparently was stated that he rolled his eyes back. He had a CT of the head. His gait was abnormal because of chronic arthritis. He has recently undergone some eye care and has had change in his eye medication per history. Suspect glaucoma, but he uses drops. He has been seen at the [facility] recently for issues of hypertension. He takes a number of medications for this including lisinopril, furosemide, and allopurinol for gout. When he presented to the hospital, he had glucose of 135, hematocrit of 45.2. PHYSICAL EXAMINATION: On my examination of the patient, he is alert, responsive. Affect is appropriate. Speech is clear. Neck is supple. Cranial nerves are intact. 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 No evidence of any visual field cuts are present. He is fully oriented, appropriate. Speech is normal. Reflexes are all intact. Sensory examination is intact. Motor examination is intact. I do not see that he has any tremors, asterixis or any recurrent weakness. IMPRESSION: Syncopal episode with superimposed history of having prior syncope related to presence of pulmonary emboli. I would recommend getting an MRI scan of the brain and EEG. The patient is strongly suspect based on the description at least he had a brief tonic seizure because he wet his eyes, his eyes rolled back. I think that seizure is certainly quite ____ due to differential, but as well this history of having recurrent episodes of pulmonary emboli should be as well looked into. JOB# [id number] LENA/NTS
--- NOTE | 2018-08-09 07:35 | Progress Note ---
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 It was reported and patient passed out while sitting down for about 2-3 minutes while outside grilling food and was witnessed by neighbor. His eyes rolled back during the episode. He had associated urinary incontinence but no seizure activity. Patient complained of tingling in his feet of needs 5 months duration. He denied preceding history of chest pain, shortness of breath, palpitation or diaphoresis. No fever, chills, cough, sore throat, runny nose, leg swelling, orthopnea or PND. No abdominal pain, nausea, vomiting, constipation, diarrhea, dysuria or frequency. She reported having syncopal episode without urinary incontinence in 2012 Followed by [facility] for the past 4 years. Further history includes glaucoma. He is a retired rolloff truck driver. His sister was at the bedside on admission. 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 No seizures reported. No nausea vomiting or diarrhea. Family is at the bedside Hospitalist Physical - Physical exam Narrative exam: VITAL SIGNS: Reviewed. GENERAL: The patient appeared well nourished and normally developed, Vital signs as documented. HEAD: No signs of head trauma. EYES: Pupils are equal. Extraocular motions intact. EARS: Hearing grossly intact. MOUTH: Oropharynx is normal. NECK: No adenopathy, no JVD. CHEST: Chest with clear breath sounds bilaterally. No wheezes, rales, or rhonchi. CARDIAC: Regular rate and rhythm. S1 and S2, without murmurs, gallops, or rubs. VASCULAR: Trace bilateral Edema. Peripheral pulses normal and equal in all extremities. ABDOMEN: Soft, non tender and non distended. No rebound or guarding, and no masses palpated. Bowel Sounds normal. MUSCULOSKELETAL: Good range of motion of all major joints. Extremities without clubbing, cyanosis. Trace bilateral edema present . NEUROLOGIC EXAM: Alert and oriented x 3 No focal sensory or strength deficits. Speech normal. Follows commands. PSYCHIATRIC: Mood normal. SKIN: No rash or lesions. - Constitutional Vitals: Temp Pulse Resp BP Pulse Ox 32.1 F L 62 18 124/75 97 08/09/18 03:58 08/08/18 22:52 08/09/18 03:58 08/09/18 03:58 08/08/18 22:52 General appearance: Present: no acute distress Results - Labs CBC & Chem 7: 08/07/18 18:18 08/07/18 18:18 Labs: Laboratory Last Values WBC 5.5 K/mm3 (4.5-11.0) 08/07/18 18:18 RBC 4.84 M/mm3 (3.65-5.03) 08/07/18 18:18 Hgb 15.3 gm/dl (11.8-15.2) H 08/07/18 18:18 Hct 45.2 % (35.5-45.6) 08/07/18 18:18 MCV 93 fl (84-94) 08/07/18 18:18 MCH 32 pg (28-32) 08/07/18 18:18 MCHC 34 % (32-34) 08/07/18 18:18 RDW 14.6 % (13.2-15.2) 08/07/18 18:18 Plt Count 176 K/mm3 (140-440) 08/07/18 18:18 Lymph % (Auto) 24.1 % (13.4-35.0) 08/07/18 18:18 [place] % (Auto) 8.9 % (0.0-7.3) H 08/07/18 18:18 Eos % (Auto) 1.0 % (0.0-4.3) 08/07/18 18:18 Baso % (Auto) 2.9 % (0.0-1.8) H 08/07/18 18:18 Lymph # 1.3 K/mm3 (1.2-5.4) 08/07/18 18:18 [place] # 0.5 K/mm3 (0.0-0.8) 08/07/18 18:18 Eos # 0.1 K/mm3 (0.0-0.4) 08/07/18 18:18 Baso # 0.2 K/mm3 (0.0-0.1) H 08/07/18 18:18 Seg Neutrophils % 63.1 % (40.0-70.0) 08/07/18 18:18 Seg Neutrophils # 3.5 K/mm3 (1.8-7.7) 08/07/18 18:18 PT 15.3 Sec. (12.2-14.9) H 08/07/18 18:18 INR 1.14 (0.87-1.13) H 08/07/18 18:18 APTT 26.9 Sec. (24.2-36.6) 08/07/18 18:18 Sodium 138 mmol/L (137-145) 08/07/18 18:18 Potassium 3.9 mmol/L (3.6-5.0) 08/07/18 18:18 Chloride 99.4 mmol/L (98-107) 08/07/18 18:18 Carbon Dioxide 24 mmol/L (22-30) 08/07/18 18:18 Anion Gap 19 mmol/L 08/07/18 18:18 BUN 18 mg/dL (9-20) 08/07/18 18:18 Creatinine 1.3 mg/dL (0.8-1.5) 08/07/18 18:18 Estimated GFR > 60 ml/min 08/07/18 18:18 BUN/Creatinine Ratio 14 % 08/07/18 18:18 Glucose 141 mg/dL (75-100) H 08/07/18 18:18 POC Glucose 135 (70-105) H 08/07/18 17:24 Hemoglobin A1c 6.0 % (4-6) 08/07/18 22:54 Calcium 9.8 mg/dL (8.4-10.2) 08/07/18 18:18 Total Bilirubin 0.90 mg/dL (0.1-1.2) 08/07/18 18:18 AST 17 units/L (5-40) 08/07/18 18:18 ALT 16 units/L (7-56) 08/07/18 18:18 Alkaline Phosphatase 67 units/L (35-129) 08/07/18 18:18 Troponin T < 0.010 ng/mL (0.00-0.029) 08/08/18 01:25 NT-Pro-B Natriuret Pep 40.24 pg/mL (0-900) 08/07/18 20:37 Total Protein 7.6 g/dL (6.3-8.2) 08/07/18 18:18 Albumin 4.4 g/dL (3.9-5) 08/07/18 18:18 Albumin/Globulin Ratio 1.4 % 08/07/18 18:18 Urine Color Yellow (Yellow) 08/07/18 19:19 Urine Turbidity Clear (Clear) 08/07/18 19:19 Urine pH 7.0 (5.0-7.0) 08/07/18 19:19 Ur Specific [place] 1.008 (1.003-1.030) 08/07/18 19:19 Urine Protein 30 mg/dl mg/dL (Negative) 08/07/18 19:19 Urine Glucose (UA) Neg mg/dL (Negative) 08/07/18 19:19 Urine Ketones Neg mg/dL (Negative) 08/07/18 19:19 Urine Blood Neg (Negative) 08/07/18 19:19 Urine Nitrite Neg (Negative) 08/07/18 19:19 Urine Bilirubin Neg (Negative) 08/07/18 19:19 Urine Urobilinogen 4.0 mg/dL (<2.0) 08/07/18 19:19 Ur Leukocyte Esterase Neg (Negative) 08/07/18 19:19 Urine WBC (Auto) 1.0 /HPF (0.0-6.0) 08/07/18 19:19 Urine RBC (Auto) 1.0 /HPF (0.0-6.0) 08/07/18 19:19 U Epithel Cells (Auto) 1.0 /HPF (0-13.0) 08/07/18 19:19 Urine Bacteria (Auto) 1+ /HPF (Negative) 08/07/18 19:19 Hyaline Casts 4 /LPF 08/07/18 19:19 Urine Mucus Few /HPF 03/30/19 19:19 Active Medications - Current Medications Current Medications: Generic Name Dose Route Start Last Admin Trade Name Freq PRN Reason Stop Dose Admin Acetaminophen 650 mg 08/07/18 22:09 Tylenol PO Q4H PRN Pain MILD(1-3)/Fever >100.5/GOVEA Acetaminophen/Hydrocodone Bitart 1 each 08/07/18 22:09 [place]ley 5/325 PO Q4H PRN Pain, Moderate (4-6) Al Hydrox/Mg Hydrox/Simethicone 30 ml 08/07/18 22:09 Alum-Mag Hydrox-Simeth [id number]/5ml PO Q4H PRN Indigestion Albuterol 2.5 mg 08/08/18 13:29 Proventil IH Q6HRT PRN Shortness Of Breath Allopurinol 300 mg 08/08/18 22:00 08/08/18 21:35 Zyloprim PO 300 mg BID MAX Administration Amlodipine Besylate 10 mg 08/09/18 10:00 Norvasc PO DAILY MAX Apixaban 5 mg 08/08/18 22:00 08/08/18 21:35 Eliquis PO 5 mg BID MAX Administration Protocol Atorvastatin Calcium 40 mg 08/08/18 22:00 08/08/18 21:35 Lipitor PO 40 mg QHS MAX Administration Famotidine 20 mg 08/08/18 22:00 08/08/18 21:35 Pepcid PO 20 mg BID MAX Administration Furosemide 40 mg 08/08/18 14:00 08/08/18 15:18 Lasix PO 40 mg DAILY MAX Administration Gabapentin 300 mg 08/08/18 14:00 08/08/18 21:35 Neurontin PO 300 mg BID MAX Administration Latanoprost 1 drops 08/08/18 18:00 08/08/18 18:56 Latanoprost 0.005% OU 1 drops QPM MAX Administration Levetiracetam 500 mg 08/08/18 14:00 08/08/18 21:35 Keppra PO 500 mg BID MAX Administration Lisinopril 40 mg 08/08/18 14:00 08/08/18 15:22 Zestril PO 40 mg QDAY MAX Administration Methocarbamol 500 mg 08/08/18 14:00 08/08/18 21:35 Robaxin PO 500 mg BID MAX Administration Ondansetron HCl 4 mg 08/07/18 22:09 Zofran IV Q8H PRN Nausea And Vomiting Sodium Chloride 10 ml 08/08/18 10:00 08/08/18 21:36 Sodium Chloride Flush Syringe 10 Ml IV 10 ml BID MAX Administration Sodium Chloride 10 ml 08/07/18 22:09 Sodium Chloride Flush Syringe 10 Ml IV PRN PRN LINE FLUSH
[2018-08-09] MEDS: SODIUM CHLORIDE FLUSH SYRINGE 10 ML IV SCH ×2 (10:03→22:32)
[2018-08-09] MEDS: ROBAXIN PO SCH ×2 (10:03→22:30)
[2018-08-09] MEDS: ZYLOPRIM PO SCH ×2 (10:03→22:31)
[2018-08-09] MEDS: ZESTRIL PO SCH (10:03)
[2018-08-09] MEDS: LASIX PO SCH (10:04)
[2018-08-09] MEDS: NEURONTIN PO SCH ×2 (10:04→22:32)
[2018-08-09] MEDS: NORVASC PO SCH (10:04)
[2018-08-09] MEDS: PEPCID PO SCH ×2 (10:04→22:32)
[2018-08-09] MEDS: ELIQUIS PO SCH ×2 (10:04→22:32)
[2018-08-09] MEDS: KEPPRA PO SCH ×2 (10:04→22:32)
--- NOTE | 2018-08-09 13:23 | Magnetic Resonance Report ---
MRI BRAIN WITHOUT CONTRAST: 08/09/18 CLINICAL: Seizure. TECHNIQUE: Axial diffusion, T1, T2, gradient echo T2*, coronal and axial FLAIR and sagittal T1 sequences on a 1.5 Sherley magnet. FINDINGS: The ventricles and sulci are normal for age. Subtle bilateral frontal and bilateral occipital lobe cortical restricted diffusion. No focal restricted diffusion. No mass or mass effect. No chronic microbleeds on the gradient echo sequence. No hemorrhage, edema or extra-axial collection. Normal pituitary and optic chiasm. The brainstem and cerebellum are normal. Intact vascular flow voids. Mild bilateral ethmoid sinusitis. The orbits, and soft tissues are normal. Normal calvarium and skull base. IMPRESSION: 1. Subtle cortical restricted diffusion as can be seen with seizure activity. 2. No evidence of acute/subacute infarct or hemorrhage.
[2018-08-09] MEDS ORDERED: ATIVAN IV PRN (16:52)
--- NOTE | 2018-08-09 17:01 | Progress Note ---
Subjective Date of service: 08/09/18 Interval history: interesting that MRI confirmed seizure not a stroke would continue seizure meds as ordered Objective - Vital Sign Vital Signs - 12hr 08/09/18 08/09/18 08/09/18 10:01 10:03 10:42 Temperature 98.1 F 98.0 F Pulse Rate 63 60 Pulse Rate [ Lying] Respiratory 18 20 Rate Blood Pressure 134/74 134/74 134/76 Blood Pressure [Left] Blood Pressure [Lying] O2 Sat by Pulse 97 Oximetry 08/09/18 08/09/18 11:00 11:03 Temperature 98.1 F 97.7 F Pulse Rate 71 81 Pulse Rate [ 60 Lying] Respiratory 20 Rate Blood Pressure Blood Pressure 148/79 133/79 [Left] Blood Pressure 134/76 [Lying] O2 Sat by Pulse 98 Oximetry - Laboratory Findings CBC and BMP: 08/07/18 18:18 08/07/18 18:18 Abnormal Lab Findings: Abnormal Labs 08/07/18 08/07/18 08/07/18 17:24 18:18 18:18 Hgb 15.3 H [place] % (Auto) 8.9 H Baso % (Auto) 2.9 H Baso # 0.2 H PT INR Glucose 141 H POC Glucose 135 H 08/07/18 18:18 Hgb [place] % (Auto) Baso % (Auto) Baso # PT 15.3 H INR 1.14 H Glucose POC Glucose
[2018-08-09] MEDS: LATANOPROST 0.005% OU SCH (17:10)
[2018-08-09] MEDS ORDERED: LATANOPROST 0.005% OU SCH (22:00)
[2018-08-10] MEDS: ROBAXIN PO SCH (09:35)
[2018-08-10] MEDS: ZYLOPRIM PO SCH (09:36)
[2018-08-10] MEDS: PEPCID PO SCH (09:36)
[2018-08-10] MEDS: NEURONTIN PO SCH (09:36)
[2018-08-10] MEDS: ELIQUIS PO SCH (09:36)
[2018-08-10] MEDS: KEPPRA PO SCH (09:36)
[2018-08-10] MEDS: LASIX PO SCH (09:36)
[2018-08-10] MEDS: ZESTRIL PO SCH (09:37)
[2018-08-10] MEDS: NORVASC PO SCH (09:37)
[2018-08-10] MEDS: SODIUM CHLORIDE FLUSH SYRINGE 10 ML IV SCH (09:37)
--- NOTE | 2018-08-10 11:45 | Discharge Summary ---
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 It was reported and patient passed out while sitting down for about 2-3 minutes while outside grilling food and was witnessed by neighbor. His eyes rolled back during the episode. He had associated urinary incontinence but no seizure activity. Patient complained of tingling in his fe et of needs 5 months duration. He denied preceding history of chest pain, shortness of breath, palpitation or diaphoresis. No fever, chills, cough, sore throat, runny nose, leg swelling, orthopnea or PND. No abdominal pain, nausea, vomiting, constipation, diarrhea, dysuria or frequency. She reported having syncopal episode without urinary incontinence in 2013 Followed by [facility] for the past 4 years. Further history includes glaucoma. He is a retired dump truck driver off highway. His sister was at the bedside on admission. Head CT and Cxr: Negative for acute pathology MRI of the head was concerning for possible seizure shows seizure-like activity. Neurology didn't follow the patient and recommended continued antiepileptic drugs. She was advised about [place] rules of not driving. He reports that he has not been driving since a week ago and was told that he has visual problems and is scheduled to follow with consulting business developer. 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 GENERAL: The patient appeared well nourished and normally developed, Vital signs as documented. HEAD: No signs of head trauma. EYES: Pupils are equal. Extraocular motions intact. EARS: Hearing grossly intact. MOUTH: Oropharynx is normal. NECK: No adenopathy, no JVD. CHEST: Chest with clear breath sounds bilaterally. No wheezes, rales, or rhon chi. CARDIAC: Regular rate and rhythm. S1 and S2, without murmurs, gallops, or rubs. VASCULAR: Trace bilateral Edema. Peripheral pulses normal and equal in all extremities. ABDOMEN: Soft, non tender and non distended. No rebound or guarding, and no masses palpated. Bowel Sounds normal. MUSCULOSKELETAL: Good range of motion of all major joints. Extremities without clubbing, cyanosis. Trace bilateral edema present . NEUROLOGIC EXAM: Alert and oriented x 3 No focal sensory or strength deficits. Speech normal. Follows commands. PSYCHIATRIC: Mood normal. SKIN: No rash or lesions. - Constitutional Vitals: Temp Pulse Resp BP Pulse Ox 98.1 F 69 20 119/75 96 08/10/18 05:13 08/10/18 09:37 08/10/18 05:13 08/10/18 09:37 08/10/18 05:13 Plan Activity: no driving until cleared by PCP, fall precautions Diet: low fat Special Instructions: record daily weights, record daily BP diary Follow up with: SUKI KING MD [Primary Care Provider] - 3-5 Days STELLA JACKSON MD [Staff Physician] - 7 Days Prescriptions: AtorvaSTATin [Lipitor] 40 mg PO QHS #30 tablet levETIRAcetam [Keppra TAB] 500 mg PO BID #60 tablet
[2018-08-10] MEDS ORDERED: NACL 0.9% 1000 ML 1,000 ML IV ONE (13:30)
[2018-08-10 15:08] VITALS: BP 108/71
--- NOTE | 2018-08-10 15:52 | Progress Note ---
Subjective Date of service: 08/10/18 Interval history: cleared for dsicharge plan follow up in office no driving due to seizures Objective - Vital Sign Vital Signs - 12hr 08/10/18 08/10/18 08/10/18 05:13 09:35 09:37 Temperature 98.1 F Pulse Rate 56 L 69 Respiratory 20 18 Rate Blood Pressure 106/73 119/75 119/75 O2 Sat by Pulse 96 Oximetry 08/10/18 08/10/18 11:51 15:05 Temperature 98.8 F 98.3 F Pulse Rate 69 62 Respiratory 18 16 Rate Blood Pressure 95/68 108/71 O2 Sat by Pulse 97 97 Oximetry - Laboratory Findings CBC and BMP: 08/07/18 18:18 08/07/18 18:18 Abnormal Lab Findings: Abnormal Labs 08/07/18 08/07/18 08/07/18 17:24 18:18 18:18 Hgb 15.3 H [place] % (Auto) 8.9 H Baso % (Auto) 2.9 H Baso # 0.2 H PT INR Glucose 141 H POC Glucose 135 H 08/07/18 18:18 Hgb [place] % (Auto) Baso % (Auto) Baso # PT 15.3 H INR 1.14 H Glucose POC Glucose
== END 2018-08-10 16:30 | disposition home health service (06) | DRG 101 ==
LOC: ED 16:51 → 3A 22:10
PROVIDERS: ADMIT Internal Medicine; ATTEND Internal Medicine
DX: G40.909 Epilepsy, unspecified, not intractable, without status epilepticus (principal); R73.9 Hyperglycemia, unspecified; I10 Essential (primary) hypertension; M19.90 Unspecified osteoarthritis, unspecified site; H40.9 Unspecified glaucoma; M10.9 Gout, unspecified; R32 Unspecified urinary incontinence; H54.8 Legal blindness, as defined in USA; Z86.711 Personal history of pulmonary embolism; Z86.718 Personal history of other venous thrombosis and embolism; Z88.8 Allergy status to other drugs, medicaments and biological substances; Z90.49 Acquired absence of other specified parts of digestive tract; Z79.01 Long term (current) use of anticoagulants; Z79.82 Long term (current) use of aspirin
CPT/HCPCS: 36415; 70450; 70551; 71045; 80053; 81001; 82962; 83036; 83880; 84484; 85025; 85610; 85730; 93005; 93010; 93306; 93880; 95819; G0378; A9270-GY; J7030

== ENCOUNTER 2018-09-22 19:18 | Observation (INO) | payer MEDICARE ==
--- NOTE | 2018-09-22 20:00 | Emergency Department Report ---
Blank Doc - Documentation Documentation: This is a 63-year-old male that presents with chest pain and SOB. HX of PE. This initial assessment/diagnostic orders/clinical plan/treatment(s) is/are subject to change based on patient's health status, clinical progression and re- assessment by fellow clinical providers in the ED. Further treatment and workup at subsequent clinical providers discretion. Patient/guardians urged not to elope from the ED as their condition may be serious if not clinically assessed and managed. Initial orders include: 1- Patient sent to MAIN ED for further evaluation and treatment 2-labs 3- EKG 4- CXR
[2018-09-22 20:37] LABS: Basophils % (Auto) 0.6 % (0.0-1.8); Eosinophils # (Auto) 0.1 K/mm3 (0.0-0.4); Eosinophils % (Auto) 1.2 % (0.0-4.3); Hematocrit 45.3 % (35.5-45.6); Hemoglobin 15.4 gm/dl (11.8-15.2); Lymphocytes # (Auto) 1.9 K/mm3 (1.2-5.4); Lymphocytes % (Auto) 36.3 % (13.4-35.0); Mean Corpuscular HGB Conc 34 % (32-34); Mean Corpuscular Volume 94 fl (84-94); Monocytes # (Auto) 0.4 K/mm3 (0.0-0.8); Monocytes % (Auto) 7.9 % (0.0-7.3); Platelet Count 148 K/mm3 (140-440); Red Blood Count 4.82 M/mm3 (3.65-5.03); Red Cell Distribution Width 14.9 % (13.2-15.2)
[2018-09-22 20:48] LABS: INR 1.12 (0.87-1.13)
[2018-09-22 20:49] LABS: Partial Thromboplastin Time 30.9 Sec. (24.2-36.6)
[2018-09-22 20:52] LABS: BUN/Creatinine Ratio 11; Blood Urea Nitrogen 12 mg/dL (9-20); Calcium 8.8 mg/dL (8.4-10.2); Hemolysis Index 38
--- NOTE | 2018-09-22 22:04 | XRay Report ---
PROCEDURE: XR CHEST ROUTINE 2V TECHNIQUE: PA and lateral chest radiographs were obtained. HISTORY: Chest Pain COMPARISONS: 08/07/2018. FINDINGS: Heart: Normal. Mediastinum/Vessels: Normal. Lungs/Pleural space: Normal. Bony thorax: No acute osseous abnormality. IMPRESSION: Normal examination. This document is electronically signed by Josemanuel Pinzon MD., Sep 22 2018 10:03:05 PM ET
[2018-09-22] MEDS ORDERED: ZOFRAN IV PRN (23:37)
[2018-09-22] MEDS ORDERED: SODIUM CHLORIDE FLUSH SYRINGE 10 ML IV PRN (23:37)
[2018-09-22] MEDS ORDERED: MORPHINE IV PRN (23:37)
[2018-09-22] MEDS ORDERED: TYLENOL PO PRN (23:37)
--- NOTE | 2018-09-22 23:37 | History and Physical Report ---
History of Present Illness Date of examination: 09/22/18 History of present illness: 63-year-old man with a history of hypertension, hyperlipidemia, gout, PE comes emergency room with complaints of chest pain located in the epigastric area which he describes as dull, intermittent lasting for a few seconds pain, intensity 5/10, no radiation, cannot identify exacerbating factor. Denies shortness of breath, nausea, no diaphoresis or palpitation. Review of systems Constitutional: no weight loss, chills, fever Ears, eyes, nose, mouth and throat: no nasal congestion, no nasal discharge, no sinus pressure, no vision change, no red eye. Neck: No neck pain or rigidity. Cardiovascular: no palpitations, +chest pain Respiratory: no cough, shortness of breath Gastrointestinal: no hematochezia, abdominal pain Genitourinary : no frequency , no hematuria Musculoskeletal: no joint swelling or muscle ache Integumentary: no rash, no pruritis Neurological: no parathesias, no focal weakness Endocrine: no cold or heat intolerance, no polyuria or polydipsia Hematologic/Lymphatic: no easy bruising, no easy bleeding, no gland swelling Allergic/Immunologic: no urticaria, no angioedema. PAST MEDICAL HISTORY: hypertension, diabetes PAST SURGICAL HISTORY: IVC filter, appendectomy SOCIAL HISTORY: Denies alcohol, drugs, tobacco FAMILY HISTORY: Hypertension Medications and Allergies Allergies Allergy/AdvReac Type Severity Reaction Status Date / Time lactose AdvReac Unknown Verified 06/29/18 22:40 Home Medications Medication Instructions Recorded Confirmed Last Taken Type Allopurinol [Zyloprim] 300 mg PO BID 06/05/18 08/08/18 08/07/18 History Brimonidine 0.15% [Alphagan P 1 drops OP Q8H 06/05/18 08/08/18 08/07/18 History 0.15%] Furosemide [Lasix TAB] 40 mg PO DAILY 06/05/18 08/08/18 08/07/18 History Gabapentin [Neurontin] 300 mg PO BID 06/05/18 08/08/18 08/07/18 History Latanoprost/Pf [Latanoprost 0.005% 7.5 ml OP QHS 06/05/18 08/08/18 08/06/18 History Eye Drop] Lisinopril 40 mg PO DAILY 06/05/18 08/08/18 08/07/18 History Rosuvastatin (Nf) [Crestor] 20 mg PO DAILY 06/05/18 08/08/18 08/07/18 History amLODIPine [Norvasc] 10 mg PO DAILY 06/05/18 08/08/18 08/07/18 History methOCARBAMOL [Robaxin TAB] 500 mg PO BID 06/05/18 08/08/18 06/05/18 History ALBUTEROL NEB's [Proventil 0.083% 2.5 mg IH Q6HRT PRN nebu 06/12/18 08/08/18 07/29/18 Rx NEBS] Apixaban [Eliquis] 5 mg PO BID #60 tablet 06/12/18 08/08/18 08/07/18 Rx Famotidine [Pepcid] 20 mg PO BID #60 tablet 06/12/18 08/08/18 08/07/18 Rx Dorzolamide/Timolol(Nf) 2-0.5% 1 drop OU BID 08/09/18 08/09/18 08/08/18 History Neptazane (Nf) 50 mg PO TID 08/09/18 08/09/18 08/08/18 History AtorvaSTATin [Lipitor] 40 mg PO QHS #30 tablet 08/10/18 Unknown Rx levETIRAcetam [Keppra TAB] 500 mg PO BID #60 tablet 08/10/18 Unknown Rx Exam - Physical Exam Narrative exam: General Apperance: The patient lying in bed, breathing comfortable HEENT: Normocephalic, atraumatic. Pupils equally round and reactive to light, EOMI, no sclericterus or JVD or thyromegaly or nodule. , no carotid bruit, mucous membranes moist, no exudate or erythema Heart: S1-S2, regular is rhythm Lungs: Clear to auscultation bilaterally, breathing comfortable Abdomen: Positive bowel sounds, soft, nontender, nondistended, no organomegaly Extremities: No edema cyanosis clubbing Skin: no rash, nodule, warm and dry Neuro: cranial nerves 2-12 intact, speech is fluent, motor/sensory intact - Constitutional Vitals: Temp Pulse Resp BP Pulse Ox 98.1 F 58 L 20 179/86 98 09/22/18 19:48 09/22/18 19:48 09/22/18 19:48 09/22/18 19:48 09/22/18 19:48 Results - Labs CBC & Chem 7: 09/22/18 20:09 09/22/18 20:09 Labs: Abnormal lab results 09/22/18 09/22/18 09/22/18 Range/Units 20:09 20:09 20:09 Hgb 15.4 H (11.8-15.2) gm/dl Lymph % (Auto) 36.3 H (13.4-35.0) % [place] % (Auto) 7.9 H (0.0-7.3) % PT 15.1 H (12.2-14.9) Sec. Glucose 110 H (75-100) mg/dL - Imaging and Cardiology EKG: image reviewed Chest x-ray: report reviewed Assessment and Plan Assessment Chest pain Hypertension H/o PE Hyperlipidemia gout Plan Admit to medicine Cardiac enzymes, stress test DVT prophylaxis
[2018-09-23 01:08] LABS: Creatine Kinase MB 1.6 ng/mL (0.0-4.0)
--- NOTE | 2018-09-23 01:26 | Emergency Department Report ---
ED Chest Pain HPI - General Chief Complaint: Chest Pain Stated Complaint: CHEST PAIN Time Seen by Provider: 09/22/18 19:59 Source: patient Mode of arrival: Ambulatory Limitations: No Limitations - History of Present Illness Initial Comments: 63-year-old male presents to ED with chest pain. Patient says pain was substernal and left-sided. Pain occurred while eating and lasted for 1 hour. Patient initially thought that it may be gas, so he drank a soda and burped several times. States pain did not immediately resolve, but it did eventually resolve. Patient states he went to an appointment with his eye doctor. After leaving the appointment to her chest pain returned and again lasted for approximately 1 hour. Patient states she was urged by his sisters, who are nurses, to come to the ER for evaluation. 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 Currently has IVC filter in place and is taking Eliquis. Patient states the chest pain that he experienced today did not feel like the chest pain that he experienced from his pulmonary embolus. Patient denies shortness of breath, nausea, diaphoresis. MD Complaint: chest pain -: This afternoon Onset: during rest, after eating Pain Location: substernal, left chest Pain Radiation: none Severity: moderate Quality: tightness, sharp Consistency: intermittent Improves With: nothing Worsens With: nothing re: denies: nausea, vomting, diaphoresis, dyspnea Other Symptoms: denies: cough, fever - Related Data Home Medications Medication Instructions Recorded Confirmed Last Taken Allopurinol [Zyloprim] 300 mg PO BID 06/05/18 08/08/18 08/07/18 Brimonidine 0.15% [Alphagan P 1 drops OP Q8H 06/05/18 08/08/18 08/07/18 0.15%] Furosemide [Lasix TAB] 40 mg PO DAILY 06/05/18 08/08/18 08/07/18 Gabapentin [Neurontin] 300 mg PO BID 06/05/18 08/08/18 08/07/18 Latanoprost/Pf [Latanoprost 0.005% 7.5 ml OP QHS 06/05/18 08/08/18 08/06/18 Eye Drop] Lisinopril 40 mg PO DAILY 06/05/18 08/08/18 08/07/18 Rosuvastatin (Nf) [Crestor] 20 mg PO DAILY 06/05/18 08/08/18 08/07/18 amLODIPine [Norvasc] 10 mg PO DAILY 06/05/18 08/08/18 08/07/18 methOCARBAMOL [Robaxin TAB] 500 mg PO BID 06/05/18 08/08/18 06/05/18 Dorzolamide/Timolol(Nf) 2-0.5% 1 drop OU BID 08/09/18 08/09/18 08/08/18 Neptazane (Nf) 50 mg PO TID 08/09/18 08/09/18 08/08/18 Previous Rx's Medication Instructions Recorded Last Taken Type ALBUTEROL NEB's [Proventil 0.083% 2.5 mg IH Q6HRT PRN nebu 06/12/18 07/29/18 Rx NEBS] Apixaban [Eliquis] 5 mg PO BID #60 tablet 06/12/18 08/07/18 Rx Famotidine [Pepcid] 20 mg PO BID #60 tablet 06/12/18 08/07/18 Rx AtorvaSTATin [Lipitor] 40 mg PO QHS #30 tablet 08/10/18 Unknown Rx levETIRAcetam [Keppra TAB] 500 mg PO BID #60 tablet 08/10/18 Unknown Rx Allergies Allergy/AdvReac Type Severity Reaction Status Date / Time lactose AdvReac Unknown Verified 06/29/18 22:40 Heart Score - HEART Score History: Slightly suspicious EKG: Non-specific Age: 45-65 Risk factors: 1-2 risk factors Troponin: < normal limit HEART Score: 3 ED Review of Systems ROS: Stated complaint: CHEST PAIN Other details as noted in HPI Comment: All other systems reviewed and negative Constitutional: denies: chills, fever Respiratory: denies: cough, shortness of breath Cardiovascular: chest pain Gastrointestinal: denies: nausea, vomiting ED Past Medical Hx - Past Medical History Previous Medical History?: Yes Hx Hypertension: Yes Hx Heart Attack/AMI: No Hx Congestive Heart Failure: No Hx Diabetes: Yes (borderline no medication) Hx Deep Vein Thrombosis: Yes Hx Pulmonary Embolism: Yes Hx Liver Disease: No Hx Sickle Cell Disease: No Hx Arthritis: No Hx Seizures: No Hx Asthma: No Hx COPD: No Hx Tuberculosis: No Hx Dementia: No Hx HIV: No Additional medical history: GOUT, - Surgical History Past Surgical History?: Yes Hx Coronary Stent: No Hx Open Heart Surgery: No Hx Pacemaker: No Hx Internal Defibrillator: No Hx Cholecystectomy: No Hx Appendectomy: Yes Hx Breast Surgery: No Additional Surgical History: [place] filter - Social History Smoking Status: Never Smoker Substance Use Type: None - Medications Home Medications: Home Medications Medication Instructions Recorded Confirmed Last Taken Type Allopurinol [Zyloprim] 300 mg PO BID 06/05/18 08/08/18 08/07/18 History Brimonidine 0.15% [Alphagan P 1 drops OP Q8H 06/05/18 08/08/18 08/07/18 History 0.15%] Furosemide [Lasix TAB] 40 mg PO DAILY 06/05/18 08/08/18 08/07/18 History Gabapentin [Neurontin] 300 mg PO BID 06/05/18 08/08/18 08/07/18 History Latanoprost/Pf [Latanoprost 0.005% 7.5 ml OP QHS 06/05/18 08/08/18 08/06/18 History Eye Drop] Lisinopril 40 mg PO DAILY 06/05/18 08/08/18 08/07/18 History Rosuvastatin (Nf) [Crestor] 20 mg PO DAILY 06/05/18 08/08/18 08/07/18 History amLODIPine [Norvasc] 10 mg PO DAILY 06/05/18 08/08/18 08/07/18 History methOCARBAMOL [Robaxin TAB] 500 mg PO BID 06/05/18 08/08/18 06/05/18 History ALBUTEROL NEB's [Proventil 0.083% 2.5 mg IH Q6HRT PRN nebu 06/12/18 08/08/18 07/29/18 Rx NEBS] Apixaban [Eliquis] 5 mg PO BID #60 tablet 06/12/18 08/08/18 08/07/18 Rx Famotidine [Pepcid] 20 mg PO BID #60 tablet 06/12/18 08/08/18 08/07/18 Rx Dorzolamide/Timolol(Nf) 2-0.5% 1 drop OU BID 08/09/18 08/09/18 08/08/18 History Neptazane (Nf) 50 mg PO TID 08/09/18 08/09/18 08/08/18 History AtorvaSTATin [Lipitor] 40 mg PO QHS #30 tablet 08/10/18 Unknown Rx levETIRAcetam [Keppra TAB] 500 mg PO BID #60 tablet 08/10/18 Unknown Rx ED Physical Exam - General Limitations: No Limitations General appearance: alert, in no apparent distress - Head Head exam: Present: atraumatic, normocephalic - Eye Eye exam: Present: normal appearance - ENT ENT exam: Present: mucous membranes moist - Neck Neck exam: Present: normal inspection - Respiratory Respiratory exam: Present: normal lung sounds bilaterally. Absent: respiratory distress - Cardiovascular Cardiovascular Exam: Present: regular rate, normal rhythm - GI/Abdominal GI/Abdominal exam: Present: soft. Absent: distended, tenderness - Extremities Exam Extremities exam: Present: normal inspection. Absent: pedal edema, calf tenderness - Neurological Exam Neurological exam: Present: alert, oriented X3 - Psychiatric Psychiatric exam: Present: normal affect, normal mood - Skin Skin exam: Present: warm, dry, intact, normal color ED Course Vital Signs 09/22/18 09/23/18 19:48 00:25 Temperature 98.1 F Pulse Rate 58 L 60 Respiratory 20 18 Rate Blood Pressure 179/86 Blood Pressure 178/82 [Right] O2 Sat by Pulse 98 99 Oximetry THERESA score - Theresa Score Age > 65: (0) No Aspirin use within the Past 7 Days: (0) No 3 or more CAD Risk Factors: (0) No 2 or more Angina events in past 24 hrs: (0) No Known CAD with more than 50% Stenosis: (0) No Elevated Cardiac Markers: (0) No ST Deviation Greater than 0.5mm: (0) No THERESA Score: 0 ED Medical Decision Making - Lab Data Result diagrams: 09/22/18 20:09 09/22/18 20:09 - EKG Data EKG shows normal: sinus rhythm, axis, intervals, QRS complexes Rate: bradycardia - EKG Data Interpretation: no acute changes - Radiology Data Radiology results: report reviewed, image reviewed - Medical Decision Making 63-year-old male with previous history of saddle PE presents to ED with intermittent chest pain today. Patient currently on eliquis has IVC filter in place. PE was thrombolyzed. D-dimer is negative today. Patient states chest pain is different from previous pain due to the PE. EKG shows no ST changes. Troponin is unremarkable. Patient has had several admissions for PE and syncopal workups. However I do not see any cardiac workup includes a stress test. Since patient reports that this pain is different from his previous chest pain, will admit for ACS workup. Patient will be admitted by hospitalist. - Differential Diagnosis GERD, ACS, PE Critical care attestation.: If time is entered above; I have spent that time in minutes in the direct care of this critically ill patient, excluding procedure time. ED Disposition Clinical Impression: Chest pain Disposition: [id number] OP ADMIT IP TO THIS HOSP Is pt being admited?: Yes Condition: Stable Instructions: Chest Pain (ED) Referrals: PRIMARY CARE, [Primary Care Provider] - 3-5 Days
[2018-09-23 08:03] LABS: Basophils % (Auto) 0.7 % (0.0-1.8); Eosinophils # (Auto) 0.1 K/mm3 (0.0-0.4); Eosinophils % (Auto) 1.6 % (0.0-4.3); Hematocrit 41.5 % (35.5-45.6); Hemoglobin 13.8 gm/dl (11.8-15.2); Lymphocytes # (Auto) 1.3 K/mm3 (1.2-5.4); Lymphocytes % (Auto) 39.1 % (13.4-35.0); Mean Corpuscular HGB Conc 33 % (32-34); Mean Corpuscular Volume 94 fl (84-94); Monocytes # (Auto) 0.3 K/mm3 (0.0-0.8); Monocytes % (Auto) 9.5 % (0.0-7.3); Platelet Count 114 K/mm3 (140-440); Red Cell Distribution Width 14.5 % (13.2-15.2)
[2018-09-23 08:20] LABS: Creatine Kinase MB 1.4 ng/mL (0.0-4.0)
[2018-09-23 08:29] LABS: BUN/Creatinine Ratio 11; Blood Urea Nitrogen 11 mg/dL (9-20); Calcium 8.4 mg/dL (8.4-10.2); Hemolysis Index 35
[2018-09-23] MEDS ORDERED: LEXISCAN IV ONE ×2 (10:31→11:32)
--- NOTE | 2018-09-23 13:10 | Progress Note ---
Assessment and Plan Assessment and plan: Chest pain. Continue chest pain protocol. Follow cardiac isoenzymes and EKG. Also follow stress test. Sinus pauses/bradycardia. Patient reportedly had 3 sinus pauses this morning. Cardiology consultation. Hypertension. Continue antihypertensive medications. History of multiple DVT/PE -Status post IVC filter placement -Continue home oral anticoagulation Hyperlipidemia. Continue statin History of gout. Seizure disorder. Patient diagnosed with seizures in August 2018. Continue Keppra. History Interval history: No new issues overnight. Patient did however report of fall 2 and an additional syncopal episode over the past 2 weeks. Nurse reported 3 sinus pauses this morning. Hospitalist Physical - Constitutional Vitals: Temp Pulse Resp BP Pulse Ox 97.4 F L 54 L 16 159/79 94 09/23/18 08:46 09/23/18 08:46 09/23/18 08:46 09/23/18 11:38 09/23/18 08:46 General appearance: Present: no acute distress, well-nourished - EENT Eyes: Present: PERRL, EOM intact ENT: hearing intact, clear oral mucosa, dentition normal - Neck Neck: Present: supple, normal ROM - Respiratory Respiratory effort: normal Respiratory: bilateral: CTA - Cardiovascular Rhythm: regular Heart Sounds: Present: S1 & S2. Absent: gallop, rub - Extremities Extremities: no ischemia, No edema, Full ROM - Abdominal General gastrointestinal: soft, non-tender, non-distended, normal bowel sounds - Integumentary Integumentary: Present: clear, warm, dry - Neurologic Neurologic: CNII-XII intact, moves all extremities Results - Labs CBC & Chem 7: 09/23/18 07:27 09/23/18 07:27 Labs: Laboratory Last Values WBC 3.4 K/mm3 (4.5-11.0) L 09/23/18 07:27 RBC 4.40 M/mm3 (3.65-5.03) 09/23/18 07:27 Hgb 13.8 gm/dl (11.8-15.2) 09/23/18 07:27 Hct 41.5 % (35.5-45.6) 09/23/18 07:27 MCV 94 fl (84-94) 09/23/18 07:27 MCH 31 pg (28-32) 09/23/18 07:27 MCHC 33 % (32-34) 09/23/18 07:27 RDW 14.5 % (13.2-15.2) 09/23/18 07:27 Plt Count 114 K/mm3 (140-440) L 09/23/18 07:27 Lymph % (Auto) 39.1 % (13.4-35.0) H 09/23/18 07:27 Swisher % (Auto) 9.5 % (0.0-7.3) H 09/23/18 07:27 Eos % (Auto) 1.6 % (0.0-4.3) 09/23/18 07:27 Baso % (Auto) 0.7 % (0.0-1.8) 09/23/18 07:27 Lymph # 1.3 K/mm3 (1.2-5.4) 09/23/18 07:27 Swisher # 0.3 K/mm3 (0.0-0.8) 09/23/18 07:27 Eos # 0.1 K/mm3 (0.0-0.4) 09/23/18 07:27 Baso # 0.0 K/mm3 (0.0-0.1) 09/23/18 07:27 Seg Neutrophils % 49.1 % (40.0-70.0) 09/23/18 07:27 Seg Neutrophils # 1.7 K/mm3 (1.8-7.7) L 09/23/18 07:27 PT 15.1 Sec. (12.2-14.9) H 09/22/18 20:09 INR 1.12 (0.87-1.13) 09/22/18 20:09 APTT 30.9 Sec. (24.2-36.6) 09/22/18 20:09 < 135.00 ng/mlDDU (0-234) 09/22/18 20:09 Sodium 143 mmol/L (137-145) 09/23/18 07:27 Potassium 4.0 mmol/L (3.6-5.0) 09/23/18 07:27 Chloride 106.3 mmol/L (98-107) 09/23/18 07:27 Carbon Dioxide 26 mmol/L (22-30) 09/23/18 07:27 15 mmol/L 09/23/18 07:27 BUN 11 mg/dL (9-20) 09/23/18 07:27 1.0 mg/dL (0.8-1.5) 09/23/18 07:27 Estimated GFR > 60 ml/min 09/23/18 07:27 11 % 09/23/18 07:27 Glucose 110 mg/dL (75-100) H 09/23/18 07:27 Calcium 8.4 mg/dL (8.4-10.2) 09/23/18 07:27 55 units/L (55-170) 09/23/18 07:27 CK-MB (CK-2) 1.4 ng/mL (0.0-4.0) 09/23/18 07:27 CK-MB (CK-2) Rel Index 2.5 (0-4) 09/23/18 07:27 < 0.010 ng/mL (0.00-0.029) 09/23/18 07:27 Active Medications - Current Medications Current Medications: Generic Name Dose Route Start Last Admin Trade Name Raul PRN Reason Stop Dose Admin Acetaminophen 650 mg 09/22/18 23:37 Tylenol PO Q4H PRN Pain MILD(1-3)/Fever >100.5/GOVEA Morphine Sulfate 2 mg 09/22/18 23:37 Morphine IV Q4H PRN Pain, Moderate (4-6) Ondansetron HCl 4 mg 09/22/18 23:37 Zofran IV Q8H PRN Nausea And Vomiting Sodium Chloride 10 ml 09/23/18 10:00 Sodium Chloride Flush Syringe 10 Ml IV BID MAX Sodium Chloride 10 ml 09/22/18 23:37 Sodium Chloride Flush Syringe 10 Ml IV PRN PRN LINE FLUSH
--- NOTE | 2018-09-23 13:54 | Consultation ---
History of Present Illness Consult date: 09/23/18 Consult reason: chest pain, other (Sinus pauses on telemetry) History of present illness: This is a 63 year old male with a history of Hypertension, multiple pulmonary emboli, DVT, IVC filter in place. He is currently on Eliquis for anticoagulat ion. He has a history of seizure disorder and sleep apnea. He presented to this hospital with complaints of chest pain. Chest pain is non-exertional. There was no unusual shortness of breath, palpitations or dizziness. Cardiac enzymes were normal and his ECG was benign, no acute ischemic changes. In addition, patient was noted to have marked sinus bradycardia on telemetry. Patient remained asymptomatic. He is not on any AV nadir blocking agents. A TSH level was not measured. Today he underwent a thallium stress test ordered by the medical team. Results are pending. Medications and Allergies Allergies Allergy/AdvReac Type Severity Reaction Status Date / Time lactose AdvReac Unknown Verified 06/29/18 22:40 Home Medications Medication Instructions Recorded Confirmed Last Taken Type Allopurinol [Zyloprim] 300 mg PO BID 06/05/18 09/23/18 09/22/18 History Brimonidine 0.15% [Alphagan P 1 drops OP Q8H 06/05/18 09/23/18 09/21/18 History 0.15%] Furosemide [Lasix TAB] 40 mg PO DAILY 06/05/18 09/23/18 09/22/18 History Gabapentin [Neurontin] 300 mg PO BID 06/05/18 09/23/18 09/22/18 History Latanoprost/Pf [Latanoprost 0.005% 7.5 ml OP QHS 06/05/18 09/23/18 09/21/18 History Eye Drop] Lisinopril 40 mg PO DAILY 06/05/18 09/23/18 09/22/18 History Rosuvastatin (Nf) [Crestor] 20 mg PO DAILY 06/05/18 09/23/18 09/22/18 History amLODIPine [Norvasc] 10 mg PO DAILY 06/05/18 09/23/18 09/22/18 History methOCARBAMOL [Robaxin TAB] 500 mg PO BID 06/05/18 09/23/18 09/22/18 History Apixaban [Eliquis] 5 mg PO BID #60 tablet 06/12/18 09/23/18 09/22/18 Rx Famotidine [Pepcid] 20 mg PO BID #60 tablet 06/12/18 09/23/18 09/22/18 Rx Dorzolamide/Timolol(Nf) 2-0.5% 1 drop OU BID 08/09/18 09/23/18 09/22/18 History Neptazane (Nf) 50 mg PO TID 08/09/18 09/23/18 09/22/18 History levETIRAcetam [Keppra TAB] 500 mg PO BID #60 tablet 08/10/18 09/23/18 09/22/18 Rx Active Meds: Active Medications Acetaminophen (Tylenol) 650 mg PO Q4H PRN PRN Reason: Pain MILD(1-3)/Fever >100.5/GOVEA Morphine Sulfate (Morphine) 2 mg IV Q4H PRN PRN Reason: Pain, Moderate (4-6) Ondansetron HCl (Zofran) 4 mg IV Q8H PRN PRN Reason: Nausea And Vomiting Sodium Chloride (Sodium Chloride Flush Syringe 10 Ml) 10 ml IV BID MAX Sodium Chloride (Sodium Chloride Flush Syringe 10 Ml) 10 ml IV PRN PRN PRN Reason: LINE FLUSH Physical Examination Vital Signs Temp Pulse Resp BP Pulse Ox 98.1 F 58 L 20 179/86 98 09/22/18 19:48 09/22/18 19:48 09/22/18 19:48 09/22/18 19:48 09/22/18 19:48 General appearance: no acute distress HEENT: Positive: PERRL Neck: Positive: trachea midline Cardiac: Positive: Reg Rate and Rhythm Results 09/23/18 07:27 09/23/18 07:27 Cardiac Enzymes 09/23/18 09/23/18 Range/Units 00:21 07:27 CK-MB (CK-2) 1.6 1.4 (0.0-4.0) ng/mL Coagulation 09/22/18 Range/Units 20:09 PT 15.1 H (12.2-14.9) Sec. INR 1.12 (0.87-1.13) APTT 30.9 (24.2-36.6) Sec. CBC 09/22/18 09/23/18 Range/Units 20:09 07:27 WBC 5.2 3.4 L (4.5-11.0) K/mm3 RBC 4.82 4.40 (3.65-5.03) M/mm3 Hgb 15.4 H 13.8 (11.8-15.2) gm/dl Hct 45.3 41.5 (35.5-45.6) % Plt Count 148 114 L (140-440) K/mm3 Lymph # 1.9 1.3 (1.2-5.4) K/mm3 Banks # 0.4 0.3 (0.0-0.8) K/mm3 Eos # 0.1 0.1 (0.0-0.4) K/mm3 Baso # 0.0 0.0 (0.0-0.1) K/mm3 Comprehensive Metabolic Panel 09/22/18 09/23/18 Range/Units 20:09 07:27 Sodium 138 143 (137-145) mmol/L Potassium 4.0 4.0 (3.6-5.0) mmol/L Chloride 101.6 106.3 (98-107) mmol/L Carbon Dioxide 26 26 (22-30) mmol/L BUN 12 11 (9-20) mg/dL Creatinine 1.1 1.0 (0.8-1.5) mg/dL Glucose 110 H 110 H (75-100) mg/dL Calcium 8.8 8.4 (8.4-10.2) mg/dL Assessment and Plan Chest pain Hx of PE/DVT s/p IVC filter on eliquis as an outpatient Hypertension Seizure disorder Sleep apnea EF 50-55% by echo 07/2018.
--- NOTE | 2018-09-23 20:00 | Consultation ---
History of Present Illness Consult date: 09/23/18 Requesting physician: BHUMI CHAUDHRY Reason for consult: other (TERRA) History of present illness: 63 yo admitted with increased L sided chest pain. Thallium abnormal, LHC is in AM. Chest pain better. No change in chronic SOB. No fevers, chills, cough, sputum. Has hx of TERRA in past > 10 years ago, could not tolerate CPAP. Noted to have sinus pauses last PM, hence this consult. Active Medications Acetaminophen (Tylenol) 650 mg PO Q4H PRN PRN Reason: Pain MILD(1-3)/Fever >100.5/GOVEA Morphine Sulfate (Morphine) 2 mg IV Q4H PRN PRN Reason: Pain, Moderate (4-6) Ondansetron HCl (Zofran) 4 mg IV Q8H PRN PRN Reason: Nausea And Vomiting Sodium Chloride (Sodium Chloride Flush Syringe 10 Ml) 10 ml IV BID MAX Sodium Chloride (Sodium Chloride Flush Syringe 10 Ml) 10 ml IV PRN PRN PRN Reason: LINE FLUSH Past History Past Medical History: other (HTN, PE/DVT, s/p IVC filter, Seizures) Social history: full code. denies: smoking, alcohol abuse, prescription drug abuse, IV drug use Family history: other (No pulm issues reported) Medications and Allergies Allergies Allergy/AdvReac Type Severity Reaction Status Date / Time lactose AdvReac Unknown Verified 06/29/18 22:40 Home Medications Medication Instructions Recorded Confirmed Last Taken Type Allopurinol [Zyloprim] 300 mg PO BID 06/05/18 09/23/18 09/22/18 History Brimonidine 0.15% [Alphagan P 1 drops OP Q8H 06/05/18 09/23/18 09/21/18 History 0.15%] Furosemide [Lasix TAB] 40 mg PO DAILY 06/05/18 09/23/18 09/22/18 History Gabapentin [Neurontin] 300 mg PO BID 06/05/18 09/23/18 09/22/18 History Latanoprost/Pf [Latanoprost 0.005% 7.5 ml OP QHS 06/05/18 09/23/18 09/21/18 History Eye Drop] Lisinopril 40 mg PO DAILY 06/05/18 09/23/18 09/22/18 History Rosuvastatin (Nf) [Crestor] 20 mg PO DAILY 06/05/18 09/23/18 09/22/18 History amLODIPine [Norvasc] 10 mg PO DAILY 06/05/18 09/23/18 09/22/18 History methOCARBAMOL [Robaxin TAB] 500 mg PO BID 06/05/18 09/23/18 09/22/18 History Apixaban [Eliquis] 5 mg PO BID #60 tablet 06/12/18 09/23/18 09/22/18 Rx Famotidine [Pepcid] 20 mg PO BID #60 tablet 06/12/18 09/23/18 09/22/18 Rx Dorzolamide/Timolol(Nf) 2-0.5% 1 drop OU BID 08/09/18 09/23/18 09/22/18 History Neptazane (Nf) 50 mg PO TID 08/09/18 09/23/18 09/22/18 History levETIRAcetam [Keppra TAB] 500 mg PO BID #60 tablet 08/10/18 09/23/18 09/22/18 Rx Active Meds: Active Medications Acetaminophen (Tylenol) 650 mg PO Q4H PRN PRN Reason: Pain MILD(1-3)/Fever >100.5/GOVEA Morphine Sulfate (Morphine) 2 mg IV Q4H PRN PRN Reason: Pain, Moderate (4-6) Ondansetron HCl (Zofran) 4 mg IV Q8H PRN PRN Reason: Nausea And Vomiting Sodium Chloride (Sodium Chloride Flush Syringe 10 Ml) 10 ml IV BID MAX Sodium Chloride (Sodium Chloride Flush Syringe 10 Ml) 10 ml IV PRN PRN PRN Reason: LINE FLUSH Review of Systems All systems: negative Physical Examination Vital signs: Vital Signs Temp Pulse Resp BP Pulse Ox 98.1 F 58 L 20 179/86 98 09/22/18 19:48 09/22/18 19:48 09/22/18 19:48 09/22/18 19:48 09/22/18 19:48 General appearance: no acute distress, alert Eyes: non-icteric ENT: oropharynx moist Neck: supple Effort: normal Ascultation: Bilateral: clear Cardiovascular: regular rate and rhythm (no mrg) Gastrointestinal: normoactive bowel sounds, soft, non-tender, non-distended Integumentary: normal Extremities: no cyanosis, pink and warm, edema (trace bilateral LE edema) normal mental status, non-focal exam, pupils equal and round, CN II-XII normal mood appropriate, affect normal Results - Laboratory Findings CBC and BMP: 09/23/18 07:27 09/23/18 07:27 PT/INR, D-dimer PT 15.1 Sec. (12.2-14.9) H 09/22/18 20:09 INR 1.12 (0.87-1.13) 09/22/18 20:09 < 135.00 ng/mlDDU (0-234) 09/22/18 20:09 Abnormal lab findings: Abnormal Labs 09/22/18 09/22/18 09/22/18 20:09 20:09 20:09 WBC Hgb 15.4 H Plt Count Lymph % (Auto) 36.3 H [place] % (Auto) 7.9 H Seg Neutrophils # PT 15.1 H Glucose 110 H 09/23/18 09/23/18 07:27 07:27 WBC 3.4 L Hgb Plt Count 114 L Lymph % (Auto) 39.1 H [place] % (Auto) 9.5 H Seg Neutrophils # 1.7 L PT Glucose 110 H - Diagnostic Findings Chest x-ray: report reviewed, image reviewed (clear lungs) Assessment and Plan Imp: 1. Chest pain 2. R/o IHD 3. ETRRA 4. HTN 5. Seizure d/o 6. Thrombocytopenia 7. Hx of Multiple PE episodes Rec: 1. Outpatient PSG needed DUNIA (he sees Dr. Morrow), d/w patient who understands; do not drive/operate machinery while sleepy 2. Need to resume Eliquis DUNIA if okay with cardiology 3. Office PFTs were normal Plan of care reviewed with patient, he understands/agrees Thanks for the consult.
--- NOTE | 2018-09-23 20:52 | Treadmill Report ---
THALLIUM STRESS TEST LEFT VENTRICLE: Left ventricular chamber size is within normal spread. Perfusion study demonstrates a small, partially transient anteroapical defect. On the resting study, there is evidence of mild degree of reversible ischemia. Gated analysis demonstrates normal left ventricular systolic function, ejection fraction 65%. CONCLUSION: Abnormal perfusion study, demonstrating mild reversible anteroapical ischemia. Clinical correlation is recommended. JOB# [id number] CA/NTS
[2018-09-23] MEDS: SODIUM CHLORIDE FLUSH SYRINGE 10 ML IV SCH (21:46)
[2018-09-24 06:10] LABS: INR 1.08 (0.87-1.13)
[2018-09-24 06:24] LABS: BUN/Creatinine Ratio 10; Blood Urea Nitrogen 10 mg/dL (9-20); Calcium 8.4 mg/dL (8.4-10.2); Hemolysis Index 3
[2018-09-24] MEDS: SODIUM CHLORIDE FLUSH SYRINGE 10 ML IV SCH ×2 (08:54→12:55)
[2018-09-24] MEDS ORDERED: HEPARIN/NS 5000 UNIT/500ML(CATH LAB) 1,000 ML IR ONE (09:52)
[2018-09-24] MEDS ORDERED: NACL 0.9% 500 ML 500 ML ONE (09:53)
[2018-09-24] MEDS: VERSED ONE ×2 (10:21→10:26)
[2018-09-24] MEDS: SUBLIMAZE ONE ×2 (10:21→10:26)
[2018-09-24] MEDS: HEPARIN 10,000 UNITS/10 ML ONE ×2 (10:22→10:29)
[2018-09-24] MEDS: CALAN ONE ×2 (10:22→10:29)
[2018-09-24] MEDS: XYLOCAINE 2% INFILTRATI ONE ×2 (10:22→10:28)
[2018-09-24] MEDS: NITROGLYCERIN SYRINGE 3 ML ONE ×2 (10:23→10:29)
--- NOTE | 2018-09-24 11:00 | Event Note ---
Date: 09/24/18 Came to evaluate patient but currently out on nuclear testing. Will see back if possible, when available.
--- NOTE | 2018-09-24 11:26 | Progress Note ---
Assessment and Plan Chest Pain MPI showing reversible defect in the anteroapical region Coronary artery disease Cath showing 80% distal LAD, 80% mid Cx, 80% mid PLB and normal LVEF Personal history of pulmonary embolism s/p IVC filter on eliquis as outpatient Sinus bradycardia Obstructive sleep apnea Recommendations: Start aspirin, high intensity statin therapy, amlodipine and isosorbide. No beta blockers secondary to bradycardia Will review angiograms with Dr Maya and decide on appropriate revascularization strategy For the time being, start on IV heparin while off eliquis therapy Subjective Date of service: 09/24/18 Principal diagnosis: Chest Pain Interval history: Patient underwent a LHC through right radial approach without complications Objective Vital Signs Temp Pulse Pulse Resp BP Pulse Ox 09/24/18 05:00 98.1 F 58 L 18 165/84 97 09/24/18 04:00 53 L 09/24/18 00:32 98.0 F 63 18 154/79 94 09/23/18 22:00 54 L 09/23/18 20:08 98.2 F 53 L 18 156/87 96 09/23/18 20:00 54 L 09/23/18 19:40 96 09/23/18 16:31 97.6 F 73 18 160/100 96 09/23/18 16:26 97.7 F 53 L 16 153/88 95 09/23/18 14:00 61 09/23/18 11:38 159/79 09/23/18 11:37 155/82 09/23/18 11:36 144/82 - Physical Examination HEENT: Positive: PERRL Neck: Positive: trachea midline Cardiac: Positive: Reg Rate and Rhythm Lungs: Positive: Normal Exam - Labs and Meds Coagulation 09/24/18 Range/Units 04:47 PT 14.7 (12.2-14.9) Sec. INR 1.08 (0.87-1.13) Comprehensive Metabolic Panel 09/24/18 Range/Units 04:47 Sodium 142 (137-145) mmol/L Potassium 3.7 (3.6-5.0) mmol/L Chloride 105.8 (98-107) mmol/L Carbon Dioxide 24 (22-30) mmol/L BUN 10 (9-20) mg/dL Creatinine 1.0 (0.8-1.5) mg/dL Glucose 106 H (75-100) mg/dL Calcium 8.4 (8.4-10.2) mg/dL - Imaging and Cardiology EKG: image reviewed
[2018-09-24 11:57] VITALS: BP 153/80
[2018-09-24] MEDS ORDERED: HEPARIN/ 0.45% NACL-25,000 UNIT/500 ML 25,000 UNIT/500 ML BAG IV SCH (12:00)
[2018-09-24] MEDS ORDERED: IMDUR PO SCH (12:00)
[2018-09-24] MEDS ORDERED: NORVASC PO SCH (12:00)
[2018-09-24 12:07] LABS: Hematocrit 43.6 % (35.5-45.6); Hemoglobin 14.7 gm/dl (11.8-15.2)
[2018-09-24 12:17] LABS: INR 1.06 (0.87-1.13)
[2018-09-24 12:18] LABS: Partial Thromboplastin Time 40.9 Sec. (24.2-36.6)
--- NOTE | 2018-09-24 14:03 | Cardiac Catherization Report ---
LEFT HEART CATHETERIZATION ORDERING PHYSICIAN: Sarahi Maya MD INDICATION FOR PROCEDURE: Atypical chest pain, abnormal myocardial perfusion scan revealing ischemia in the anteroapical region. PROCEDURES PERFORMED: Selective left and right coronary angiography, and left ventriculography. DESCRIPTION OF PROCEDURE: After obtaining written consent, the patient was draped using sterile technique. 2% lidocaine was injected into the right wrist. A 5-Kenyan vascular sheath was inserted into the right radial artery. A 5-Kenyan JL3.5 catheter was used to selectively engage left coronary artery. A 5-Kenyan JR4 catheter was used to selectively engage the right coronary artery. A 5-Kenyan JR4 catheter was used to hand inject the left ventriculogram. No complications occurred during the procedure. Hemostasis was achieved at the end of the procedure using manual pressure. SPECIMEN REMOVED: None. ESTIMATED BLOOD LOSS: Minimal. TOTAL SEDATION ADMINISTERED: 1 mg of IV Versed and 50 mcg of IV fentanyl. PHYSICIAN-PATIENT [id number] SEDATION START TIME: 10:26 a.m. PHYSICIAN-PATIENT [id number]-[id number] SEDATION STOP TIME: 10:37 a.m. TOTAL SEDATION TIME: 11 minutes. FINDINGS: HEMODYNAMICS: Aortic pressure 159/80, LV systolic pressure 159 mmHg, LV end diastolic pressure 15 mmHg. No significant gradient noted across the left ventricular outflow tract. CARDIAC STRUCTURES: The left ventricle is normal in size and systolic function. The left ventricular ejection fraction is estimated at 60%. Normal wall motion. CORONARY ANATOMY: 1. This is a right dominant circulation. 2. The left main is angiographically normal. 3. The LAD exhibits evidence of a 60-70% tubular stenosis in the proximal segment. The first diagonal artery is small in caliber and severely diffusely diseased. There is also evidence of an 80% focal stenosis noted in the distal LAD. The distal LAD tapers to a very small caliber severely diffusely diseased vessel. 4. The left circumflex artery has evidence of a focal 80% stenosis in the mid segment, right at the takeoff of a large caliber obtuse marginal. This obtuse marginal bifurcates distally into 2 branches. The superior branch has evidence of an ostial 90% lesion. 5. The right coronary artery is a dominant vessel. There is evidence of a 100% stenosis involving the proximal mid segment of the PLV branch. The vessel reconstitutes distally via collaterals. IMPRESSION: 1. Significant obstructive disease noted in the mid circumflex artery, mid PLB, and distal left anterior descending artery. Borderline proximal LAD disease 2. Small severe diffuse vessel disease involving the first diagonal artery as well as the distal apical LAD. 3. Normal left ventricular size and systolic function. 4. LVEDP measured at 15 mmHg. RECOMMENDATIONS: After careful review with Dr Maya, it was decided to refer patient for CABG evaluation. The ischemia noted on MPI suggests that the proximal LAD disease is significant. Therefore, bypasses to LAD, Cx and PLB should be considered. Discussed with Dr Avalos at [facility] for transfer. JOB# [id number] KISHA/ASIA SPARROW
--- NOTE | 2018-09-24 14:04 | Discharge Summary ---
Providers - Providers Date of Admission: 09/22/18 23:37 Date of discharge: 09/24/18 Attending physician: ADITYA CALL 09/23/18 09:00 Consult to Physician [CONS] Routine Comment: Consulting Provider: BHUMI CHAUDHRY Physician Instructions: Reason For Exam: multiple sinus pauses 09/23/18 14:10 Consult to Physician [CONS] Routine Comment: Consulting Provider: VICKEY YEN Physician Instructions: Reason For Exam: Sleep apnea Primary care physician: [facility] Hospitalization Reason for admission: cp Condition: Stable Hospital course: This is a 63-year-old male with past medical history of TERRA, cardiac, pulmonary embolism status post IVC filter on eliquis as an outpatient who presented through the emergency room department with chief complaint of left-sided chest pain. The patient underwent evaluation with thallium which was found to be abnormal. The MPI revealed reversible defect in the anterior apical region. Also, During this hospitalization on telemetry, patient was noted to have sinus pauses and bradycardia. The patient underwent cardiac catheterization which revealed 80% distal LAD, 80% mid circumflex, 80% mid PLB and normal LVEF. Cardiology recommended that the patient be started on aspirin, high intensity statin therapy, amlodipine and isosorbide. No beta blockers secondary to bradycardia. The patient will be transferred to [facility] for CABG evaluation. Dedicated discharge time 35 minutes. Disposition: [id number]/TX-[id number] [facility]OS[facility] IP Time spent for discharge: 35 - Discharge Diagnoses (1) Bradycardia Status: Acute (2) TERRA (obstructive sleep apnea) Status: Acute (3) Sinus pause Status: Acute (4) Chest pain Status: Acute Core Measure Documentation - Palliative Care Palliative Care/ Comfort Measures: Not Applicable - Core Measures Any of the following diagnoses?: none Exam - Constitutional Vitals: Temp Pulse Resp BP Pulse Ox 97.6 F 54 L 18 153/80 95 09/24/18 11:56 09/24/18 12:12 09/24/18 11:56 09/24/18 12:13 09/24/18 11:56 General appearance: Present: no acute distress, well-nourished - EENT Eyes: Present: PERRL ENT: hearing intact, clear oral mucosa - Neck Neck: Present: supple, normal ROM - Respiratory Respiratory effort: normal Respiratory: bilateral: CTA - Cardiovascular Heart Sounds: Present: S1 & S2. Absent: rub, click - Extremities Extremities: pulses symmetrical, No edema Peripheral Pulses: within normal limits - Abdominal General gastrointestinal: Present: soft, non-tender, non-distended, normal bowel sounds Male genitourinary: Present: normal - Integumentary Integumentary: Present: clear, warm, dry - Musculoskeletal Musculoskeletal: gait normal, strength equal bilaterally - Psychiatric Psychiatric: appropriate mood/affect, intact judgment & insight - Neurologic Neurologic: CNII-XII intact, moves all extremities Plan Activity: up only with assistance Weight Bearing Status: Weight Bear as Tolerated Diet: regular Follow up with: PRIMARY CARE, [Primary Care Provider] - 3-5 Days Prescriptions: Heparin [Heparin/D5w 25,000 Unit/500Ml] 25,000 unit IV TITR 1 Days #1 bag
[2018-09-25] MEDS ORDERED: HALFPRIN EC PO SCH (10:00)
== END 2018-09-24 18:27 | disposition short-term general hospital (02) ==
LOC: ED 19:18 → 4A 23:37
PROVIDERS: ADMIT Internal Medicine; ATTEND Hospitalist
DX: R07.89 Other chest pain (principal); I25.10 Atherosclerotic heart disease of native coronary artery without angina pectoris; I26.99 Other pulmonary embolism without acute cor pulmonale; I82.409 Acute embolism and thrombosis of unspecified deep veins of unspecified lower extremity; I10 Essential (primary) hypertension; G40.909 Epilepsy, unspecified, not intractable, without status epilepticus; I25.9 Chronic ischemic heart disease, unspecified; D69.6 Thrombocytopenia, unspecified; E78.5 Hyperlipidemia, unspecified; M10.9 Gout, unspecified; G47.33 Obstructive sleep apnea (adult) (pediatric); I45.5 Other specified heart block; Z79.899 Other long term (current) drug therapy
CPT/HCPCS: 36415; 71046; 78452; 80048; 82550; 82553; 83735; 84443; 84484; 85014; 85018; 85025; 85049; 85379; 85610; 85730; 93005; 93010; 93017; 93458; 94760; 99284; A9502; C1894; G0378; J1644; J2250; J2785; J3010; J7040; Q9967

== ENCOUNTER 2018-11-30 11:45 | Outpatient (CLI) | payer MEDICARE ==
[2018-11-30 12:33] LABS: Hematocrit 41.6 % (35.5-45.6); Hemoglobin 13.6 gm/dl (11.8-15.2); Mean Corpuscular HGB Conc 33 % (32-34); Mean Corpuscular Volume 86 fl (84-94); Platelet Count 176 K/mm3 (140-440); Red Blood Count 4.82 M/mm3 (3.65-5.03); Red Cell Distribution Width 16.9 % (13.2-15.2)
[2018-11-30 12:54] LABS: Erythrocyte Sedimentation Rate 4 mm/Hr (0-20)
[2018-11-30 12:56] LABS: Alanine Aminotransferase 12 units/L (7-56); Albumin 4.2 g/dL (3.9-5); BUN/Creatinine Ratio 13; Blood Urea Nitrogen 13 mg/dL (9-20); Calcium 9.3 mg/dL (8.4-10.2); Hemolysis Index 1
== END 2018-11-30 11:46 | disposition home or self-care (01) ==
LOC: LAB 11:45
PROVIDERS: ATTEND Specialist
DX: G40.211 Localization-related (focal) (partial) symptomatic epilepsy and epileptic syndromes with complex partial seizures, intractable, with status epilepticus (principal); E78.00 Pure hypercholesterolemia, unspecified; I10 Essential (primary) hypertension
CPT/HCPCS: 36415; 80053; 85027; 85652

== ENCOUNTER 2019-10-08 10:15 | Emergency (ER) | payer MEDICARE ==
--- NOTE | 2019-10-08 11:02 | Emergency Department Report ---
HPI - General Chief Complaint: Dyspnea/Respdistress PUI?: No Time Seen by Provider: 10/08/19 10:45 - HPI HPI: Room 9 The patient is a 64-year-old male present with a chief complaint of left rib pain. The patient states yesterday he tripped after getting up out of bed and fell forward striking his chest on a dresser. Patient denies loss of consciousness but states he has had pain in left anterior rib especially when he breathes since the event. Patient gives his pain a score of 0-1/10 ED Past Medical Hx - Past Medical History Hx Hypertension: Yes Hx Diabetes: Yes Hx Deep Vein Thrombosis: Yes Hx Pulmonary Embolism: Yes Additional medical history: GOUT, - Surgical History Hx Appendectomy: Yes Additional Surgical History: [place] filter - Family History Family history: no significant - Social History Smoking Status: Never Smoker Substance Use Type: None (Denies illicit drug use) - Medications Home Medications: Home Medications Medication Instructions Recorded Confirmed Last Taken Type Gabapentin 300 mg PO BID 06/05/18 09/23/18 09/22/18 History Latanoprost/Pf [Latanoprost 0.005% 7.5 ml OP QHS 06/05/18 09/23/18 09/21/18 Hi story Eye Drop] allopurinoL [Zyloprim] 300 mg PO BID 06/05/18 09/23/18 09/22/18 History levETIRAcetam [Keppra TAB] 500 mg PO BID #60 tablet 08/10/18 09/23/18 09/22/18 Rx Acetaminophen [Acetaminophen TAB] 650 mg PO Q4H PRN tablet 09/24/18 Unknown Rx Aspirin EC [Halfprin EC] 81 mg PO QDAY tablet 09/24/18 Unknown Rx AtorvaSTATin [Lipitor] 40 mg PO QHS tablet 09/24/18 Unknown Rx Heparin [Heparin/D5w 25,000 25,000 unit IV TITR 1 Days #1 bag 09/24/18 Unknown Rx Unit/500Ml] ISOSORBIDE MONOnitrate [Imdur ER] 30 mg PO QDAY tablet 09/24/18 Unknown Rx amLODIPine 2.5 mg PO QDAY tablet 09/24/18 Unknown Rx HYDROcodone/APAP 5-325 [[place] 1 each PO Q6HR PRN #10 tablet 10/08/19 Unknown Rx 5/325] Ibuprofen [Motrin 800 MG tab] 800 mg PO Q8HR PRN #20 tablet 10/08/19 Unknown Rx ED Review of Systems ROS: Stated complaint: FALL,SOB Other details as noted in HPI Constitutional: no symptoms reported Respiratory: no symptoms reported, other (Pleurisy) Endocrine: no symptoms reported Physical Exam - Physical Exam Vital Signs: Vital Signs 10/08/19 10/08/19 10:17 10:46 Temperature 97.9 F Pulse Rate 72 67 Respiratory 16 14 Rate Blood Pressure 187/103 Blood Pressure 177/96 [Left] O2 Sat by Pulse 98 99 Oximetry Physical Exam: GENERAL: The patient is well-developed well-nourished male lying on stretcher not appearing to be in acute distress. [] HEENT: Normocephalic. Atraumatic. Extraocular motions are intact. Patient has moist mucous membranes. NECK: Supple. Trachea midline CHEST/LUNGS: Clear to auscultation. There is no respiratory distress noted. Bruising to the left lateral ribs noted. HEART/CARDIOVASCULAR: Regular. There is no tachycardia. There is no gallop rub or murmur. ABDOMEN: Abdomen is soft, nontender. Patient has normal bowel sounds. There is no abdominal distention. SKIN: There is no rash. There is no edema. There is no diaphoresis. Bruising to left lateral ribs noted NEURO: The patient is awake, alert, and oriented. The patient is cooperative. The patient has normal speech MUSCULOSKELETAL: There is no evidence of acute injury. ED Course Vital Signs 10/08/19 10/08/19 10:17 10:46 Temperature 97.9 F Pulse Rate 72 67 Respiratory 16 14 Rate Blood Pressure 187/103 Blood Pressure 177/96 [Left] O2 Sat by Pulse 98 99 Oximetry ED Medical Decision Making - Lab Data Result diagrams: 10/08/19 11:52 10/08/19 11:52 Laboratory Tests 10/08/19 10/08/19 10/08/19 11:47 11:52 11:52 WBC 4.7 RBC 5.42 H Hgb 16.7 H Hct 49.2 H MCV 91 MCH 31 MCHC 34 RDW 14.6 Plt Count 141 Lymph % (Auto) 33.3 [place] % (Auto) 8.1 H Eos % (Auto) 0.6 Baso % (Auto) 0.5 Lymph # 1.6 [place] # 0.4 Eos # 0.0 Baso # 0.0 Seg Neutrophils % 57.5 Seg Neutrophils # 2.7 PT 15.6 H INR 1.23 H APTT 28.9 Sodium 142 Potassium 4.4 Chloride 103.5 Carbon Dioxide 27 Anion Gap 16 BUN 12 Creatinine 1.1 Estimated GFR > 60 BUN/Creatinine Ratio 11 Glucose 118 H Calcium 9.7 Total Creatine Kinase 64 CK-MB (CK-2) 1.4 CK-MB (CK-2) Rel Index 2.1 Troponin T < 0.010 - EKG Data -: EKG Interpreted by Me EKG shows normal: sinus rhythm Rate: bradycardia (58 bpm) - EKG Data When compared to previous EKG there are: previous EKG unavailable Interpretation: other (Right bundle branch block) - Radiology Data Radiology results: report reviewed (CT chest), image reviewed (CT chest) [facility] [address] [place] [address] Cat Scan Report Signed Patient: IZABEL FONTANA MR#: [id number] : 1955 Acct:[id number] Age/Sex: 64 / M ADM Date: 10/08/19 Loc: ED Attending Dr: Ordering Physician: ALEA MARX MD Date of Service: 10/08/19 Procedure(s): CT chest wo con Accession Number(s): [id number] cc: ALEA MARX MD CT of the chest without contrast INDICATION: Left anterior chest pain following fall yesterday COMPARISON: None FINDINGS: There has been prior median sternotomy. No adenopathy or effusions are seen. Is no thoracic aortic aneurysm with only slight vascular calcification. No mediastinal hemorrhage. Upper abdomen shows a caval filter in place with left renal cyst. Lung windows show slight basilar atelectasis but no nodules, masses or infiltrates. Bone windows show no definite rib or sternal fracture. IMPRESSION: Negative chest CT. No acute traumatic abnormality seen. Automated exposure control was utilized to diminish radiation dose. Signer Name: Fabian Seymour MD Signed: 10/08/2019 12:37 PM Workstation Name: [id number] Transcribed By: PIERRE Dictated By: Fabian Seymour MD Electronically Authentica armand By: Fabian Seymour MD Signed Date/Time: 10/08/19 1237 DD/ 1230 TD/TT: - Differential Diagnosis Rib fracture, bruised rib, pneumothorax Critical care attestation.: If time is entered above; I have spent that time in minutes in the direct care of this critically ill patient, excluding procedure time. ED Disposition Clinical Impression: Contusion of rib on left side Disposition: DC- TO HOME OR SELFCARE Is pt being admited?: No Does the pt Need Aspirin: No Condition: Stable Additional Instructions: Return to the emergency department should you develop worsening symptoms, inability to tolerate food or liquids, high fever or any other concerns Prescriptions: Ibuprofen [Motrin 800 MG tab] 800 mg PO Q8HR PRN #20 tablet PRN Reason: Pain, Moderate (4-6) HYDROcodone/APAP 5-325 [[place] 5/325] 1 each PO Q6HR PRN #10 tablet PRN Reason: Pain Referrals: PRIMARY CARE, [Primary Care Provider] - 3-5 Days Time of Disposition: 12:55
[2019-10-08 11:52] VITALS: BP 165/88
[2019-10-08 12:06] LABS: Basophils % (Auto) 0.5 % (0.0-1.8); Eosinophils % (Auto) 0.6 % (0.0-4.3); Hematocrit 49.2 % (35.5-45.6); Hemoglobin 16.7 gm/dl (11.8-15.2); Lymphocytes # (Auto) 1.6 K/mm3 (1.2-5.4); Lymphocytes % (Auto) 33.3 % (13.4-35.0); Mean Corpuscular HGB Conc 34 % (32-34); Mean Corpuscular Volume 91 fl (84-94); Monocytes # (Auto) 0.4 K/mm3 (0.0-0.8); Monocytes % (Auto) 8.1 % (0.0-7.3); Platelet Count 141 K/mm3 (140-440); Red Blood Count 5.42 M/mm3 (3.65-5.03); Red Cell Distribution Width 14.6 % (13.2-15.2)
[2019-10-08 12:17] LABS: INR 1.23 (0.87-1.13)
[2019-10-08 12:18] LABS: Partial Thromboplastin Time 28.9 Sec. (24.2-36.6)
[2019-10-08 12:24] LABS: Creatine Kinase MB 1.4 ng/mL (0.0-4.0)
[2019-10-08 12:25] LABS: BUN/Creatinine Ratio 11; Blood Urea Nitrogen 12 mg/dL (9-20); Calcium 9.7 mg/dL (8.4-10.2); Hemolysis Index 16
--- NOTE | 2019-10-08 12:42 | Cat Scan Report ---
CT of the chest without contrast INDICATION: Left anterior chest pain following fall yesterday COMPARISON: None FINDINGS: There has been prior median sternotomy. No adenopathy or effusions are seen. Is no thoracic aortic aneurysm with only slight vascular calcification. No mediastinal hemorrhage. Upper abdomen sh ows a caval filter in place with left renal cyst. Lung windows show slight basilar atelectasis but no nodules, masses or infiltrates. Bone windows show no definite rib or sternal fracture. IMPRESSION: Negative chest CT. No acute traumatic abnormality seen. Automated exposure control was utilized to diminish radiation dose. Signer Name: Fabian Seymour MD Signed: 10/08/2019 12:37 PM Workstation Name: [id number]
== END 2019-10-08 13:14 | disposition home or self-care (01) ==
LOC: ED 10:15
DX: S20.212A Contusion of left front wall of thorax, initial encounter (principal); I10 Essential (primary) hypertension; E11.9 Type 2 diabetes mellitus without complications; M10.9 Gout, unspecified; Z90.49 Acquired absence of other specified parts of digestive tract; Z98.890 Other specified postprocedural states; Z79.899 Other long term (current) drug therapy; Z91.048 Other nonmedicinal substance allergy status; W22.8XXA Striking against or struck by other objects, initial encounter; Y93.89 Activity, other specified; Y92.89 Other specified places as the place of occurrence of the external cause; Y99.8 Other external cause status
CPT/HCPCS: 36415; 71250; 80048; 82550; 82553; 84484; 85025; 85610; 85730; 93005